=== PATIENT | female | born 1950 | race Hispanic/Latino ===

== ENCOUNTER 2017-10-07 12:35 | Emergency (ER) | payer MEDICARE, OTHER ==
[~2017-10-07] VITALS: Ht 165.1 cm; Wt 62.6 kg
[2017-10-07] MEDS ORDERED: DEXILANT60 MG (15:30)
[2017-10-07] MEDS ORDERED: BUPIVACAINE HCL 0.5% INJ 30 ML VIAL INJ ONE (15:30)
[2017-10-07] MEDS ORDERED: Eliquis PO (15:30)
[2017-10-07] MEDS ORDERED: OCTREOTIDE (15:30)
[2017-10-07] MEDS ORDERED: METOPROLOL SUCC25 MG PO (15:30)
[2017-10-07] MEDS ORDERED: ULTRAM50 MG PO (15:30)
[2017-10-07] MEDS ORDERED: LISINOPRIL10 MG PO (15:30)
[2017-10-07] MEDS ORDERED: NITROFURANTOIN100 MG PO (15:30)
[2017-10-07] MEDS ORDERED: GABAPENTIN400 MG PO (15:30)
== END 2017-10-07 16:10 | disposition home or self-care (01) ==
LOC: FSED 12:35
DX: S61.211A Laceration without foreign body of left index finger without damage to nail, initial encounter (principal); W26.0XXA Contact with knife, initial encounter; Y92.008 Other place in unspecified non-institutional (private) residence as the place of occurrence of the external cause
CPT/HCPCS: 99282

== ENCOUNTER 2019-03-03 16:25 | Emergency (ER) | payer MEDICARE, OTHER ==
[~2019-03-03 16:25] MED LIST: DEXILANT60 MG; Eliquis PO; GABAPENTIN400 MG PO; LISINOPRIL10 MG PO; METOPROLOL SUCC25 MG PO; NITROFURANTOIN100 MG PO; OCTREOTIDE; ULTRAM50 MG PO
--- OUTSIDE RECORDS SUMMARY | 2019-03-03 16:29 | XMS REPORT | Clinical Summary ---
Author Author [facility] Address Unknown Phone Unavailable Care Team Providers Care Chief Deputy Name Role Phone Asked, No Pcp PCP Unavailable Allergies Comments Active Allergy Reactions Severity Noted Date Aspirin Swelling High 04/23/2017 Doxycycline Hyclate Swelling High 04/23/2017 (Bulk) Levofloxacin Swelling High 04/23/2017 Morphine Itching High 04/23/2017 Penicillins Hives High 04/23/2017 Streptomycin Swelling High 04/23/2017 Medications End Date Status Medication Sig Dispensed Refills Start Date Active octreotide (SandoSTATIN Inject 40 mg 0 LAR) 20 mg injection into the shoulder, thigh, or buttocks every 21 days. Active lisinopril Take 20 mg by 0 (PRINIVIL,ZESTRIL) 10 mg mouth every tablet morning. Active gabapentin (NEURONTIN) Take 400 mg 0 400 mg capsule by mouth 3 (three) times a day. Active dexlansoprazole Take 60 mg by 0 (DEXILANT) 60 mg capsule mouth every morning. Active apixaban (ELIQUIS) 5 mg Take 5 mg by 0 tablet mouth 2 (two) times a day. Active diclofenac (VOLTAREN) 1 % Apply 500 g 0 gel topically 4 7 (four) times a day. Apply 1-2 grams to affected area 3-4 times daily. Active traMADol (ULTRAM) 50 mg Take 50 mg by 0 tablet mouth every 6 (six) hours as needed for moderate pain. Active celecoxib (CeleBREX) 200 Take 200 mg 0 MG capsule by mouth as needed for mild pain. Active metoprolol succinate XL TAKE ONE (1) 3 (TOPROL-XL) 25 mg 24 hr TABLET(S) BY 8 tablet MOUTH ONCE A DAY. Active nitrofurantoin, TAKE ONE (1) 3 macrocrystal-monohydrate, CAPSULE(S) BY 8 (MACROBID) 100 MG capsule MOUTH ONCE A DAY. 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 Last Filed Vital Signs Not on file Plan of Treatment Health Maintenance Due Date Last Done Comments BREAST CANCER SCREENING 2000 COLONOSCOPY SCREENING 2000 SHINGLES VACCINES (#1) 2000 65+ PNEUMOCOCCAL VACCINE 2015 (1 of 2 - PCV13) INFLUENZA VACCINE 04/14/2019 Results Not on fileafter 03/02/2018 Insurance Type Payer Benefit Subscriber ID Effective Phone Address Plan / Dates Group Medicare MEDICARE MEDICARE xxxxxxxxxx 2015- [place], PART A AND Present [place] Commercial COMMERCIAL MISC MISC xxxxxxxxxx [id number] COMMERCIAL resent Advance Directives Patient has advance care planning documents on file. For more information, jluis cunha contact: Jeffery Garcia [address] [place] [address]
--- OUTSIDE RECORDS SUMMARY | 2019-03-03 16:29 | XMS REPORT | Clinical Summary ---
Author Author [facility] Address Unknown Phone Unavailable Care Team Providers Care Hr Recruiter Name Role Phone Sharpless PCP Allergies Comments Active Allergy Reactions Severity Noted Date Salicylates 10/08/2016 Doxycycline 10/08/2016 Levofloxacin 10/08/2016 Morphine 10/08/2016 Penicillins Itching, 10/08/2016 Swelling Streptomycin 10/08/2016 Medications End Date Status Medication Sig Dispensed Refills Start Date Active octreotide (SANDOSTATIN Inject 20 mg 0 LAR) 20 mg injection intramuscular ly every 28 days. Active lisinopril Take 20 mg by 0 (PRINIVIL,ZESTRIL) 20 MG mouth daily. tablet Active dexlansoprazole 60 mg Take 60 mg by 0 capsule mouth daily. Active traMADol (ULTRAM) 50 mg Take 50 mg by 0 tablet mouth every 6 (six) hours as needed for Pain. Active gabapentin (NEURONTIN) Take 400 mg 0 400 MG capsule by mouth 3 (three) times daily. Active alendronate (FOSAMAX) 70 Take 70 mg by 0 MG tablet mouth every 7 days Take in the morning with a full glass of water, on an empty stomach, and do not take anything else by mouth or lie down for the next 30 min. . Active apixaban (ELIQUIS) 5 mg Take 5 mg by 0 Tab tablet mouth 2 (two) times daily. Active amiodarone (PACERONE) 200 Take 200 mg 0 MG tablet by mouth daily. Active celecoxib (CELEBREX) 200 Take 200 mg 0 MG capsule by mouth every 12 (twelve) hours as needed for Pain. Active octreotide acetate 100 Inject 0 mcg/mL (1 mL) Syrg intravenously . Active glucosamine-chondroitin Take 1 tablet 0 500-400 mg tablet by mouth 3 (three) times daily. Active lactobacillus rhamnosus, Take 1 0 GG, (CULTURELLE) 10 capsule by billion cell capsule mouth daily. Active calcium carbonate-vitamin Take 1 tablet 0 D2 500 mg(1,250mg) -200 by mouth 2 unit tablet (two) times daily. Active cholecalciferol, vitamin Take by 0 D3, 2,000 unit Cap mouth. Active Problems Problem Noted Date Persistent atrial fibrillation 10/09/2016 Social History Date Tobacco Use Types Packs/Day Years Used Former Smoker Alcohol Use Drinks/Week oz/Week Comments No Sex Assigned at Date Recorded Not on file Industry Job Start Date Occupation Not on file Not on file Not on file Travel End Travel History Travel Start No recent travel history available. Last Filed Vital Signs Not on file Plan of Treatment Not on file Results Not on fileafter 03/02/2018 Insurance Payer Benefit Subscriber ID Type Phone Address Plan / Group MEDICARE MEDICARE A xxxxxxxxxx Medicare B AETNA - MGD CARE AET[employer] TRS xxxxxxxxxx HMO/POS RETIREES Advance Directives For more information, please contact: [facility] [address] [place] [address] Date Inactivated Comments Code Status Date Activated 10/10/2016 1:46 PM Full Code 10/09/2016 5:46 AM This code status was determined by: Patient 10/08/2016 11:16 AM Full Code 10/08/2016 10:33 AM This code status was determined by: Patient
--- OUTSIDE RECORDS SUMMARY | 2019-03-03 16:31 | XMS REPORT | CCD ---
Author Author Auto Generated Organization [facility] Address Unknown Phone Unavailable Care Team Providers Care Search Marketing Coordinator Name Role Phone Kat Munguia RP Urban Vega CP ChartServer, Login CP Unavailable Quynh Correa CP [phone] Allergies, Adverse Reactions, Alerts Substance Reaction Status aspirin ?? Active morphine ?? Active streptomycin ?? Active sulfa drugs ?? Active
--- OUTSIDE RECORDS SUMMARY | 2019-03-03 16:31 | XMS REPORT | Summary of Care ---
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 (Final) - Discharge Disposition: Home or Self Care Attending Physician: Demetrio Walsh MD Referring Physician: Demetrio Walsh MD Vital Signs Most recent to 1 2 oldest [Reference Range]: Height 165.1 cm 165.1 cm (10/01/17 2:56 PM) (10/01/17 2:36 PM) Temperature Oral 97.7 DegF [96.4-99.1 DegF] (10/01/17 2:56 PM) Blood Pressure 119/78 mmHg [90-140/60-90 mmHg] (10/01/17 2:56 PM) Peripheral Pulse 69 bpm Rate [60-100 bpm] (10/01/17 2:56 PM) Weight 61.477 kg 61.5 kg (10/01/17 2:56 PM) (10/01/17 2:36 PM) Body Mass Index 22.55 m2 22.56 m2 (10/01/17 2:56 PM) (10/01/17 2:36 PM) Problem List Condition Effective Dates Status Health Status Informant Acid Resolved reflux(Confirmed) Arthritis(Confirmed) Active Cancer, 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) HTN Active (hypertension)(Confi rmed) Liver Resolved cancer(Confirmed) [address], 2010 with mets to liver and bilateral lungs Allergies, Adverse Reactions, Alerts Substance Reaction Severity Status penicillins lip swelling Active itching sulfa drugs nausea Active doxycycline hives Active streptomycin itching Active lips swell morphine nightmares Active hives aspirin itching Active lips swell Levaquin hives Active Medications SandoSTATIN [place] 40 mg, Route: IM, Drug form: PDR/INJ, ONCALL, Start date: 10/01/17 15:00:00 LOAN OPERATIONS MANAGER, Duration: 8 hr, Stop date: 10/01/17 22:59:00 LOAN OPERATIONS MANAGER Notes: Non-Formulary Drug. (Same As: SandoSTATIN [place]). Refrigerate. Start Date: 10/01/17 Stop Date: 10/01/17 Status: Completed SandoSTATIN [place] 40 mg, Route: IM, Drug form: PDR/INJ, ONCALL, Start date: 09/09/17 10:30:00 LOAN OPERATIONS MANAGER, Duration: 8 hr, Stop date: 09/09/17 18:29:00 LOAN OPERATIONS MANAGER Notes: Non-Formulary Drug. (Same As: SandoSTATIN [place]). Refrigerate. Start Date: 09/09/17 Stop Date: 09/09/17 Status: Completed Results No data available for this section Immunizations Given and Recorded Vaccine Date Status Refusal Reason diphtheria/pertussis, acel/tetanus adult 01/18/17 Given Procedures Procedure Date Related Diagnosis Body Site Status Abdominal hysterectomy Completed Arthroscopic surgical procedure on knee Completed Liver lobectomy1 Completed Lobectomy of lung2 Completed Suspension of bladder Completed 1Rt lobe 2010 2Rt lower 2 lobes 1197 Social History Social History Type Response Smoking Status Never smoker; Ready to change: No; Concerns about tobacco use in household: No; Exposure to Tobacco Smoke None; Cigarette Smoking Last 365 Days No; Reg Smoking Cessation Counseling No entered on: 10/01/17 Assessment and Plan No data available for this section
--- OUTSIDE RECORDS SUMMARY | 2019-03-03 16:31 | XMS REPORT | Summary of Care ---
Author Author [facility] Organization [facility] Address Unknown Phone Unavailable Care Team Providers Care Credit Operations Processor Name Role Phone Demetrio Walsh PCP Encounter [facility] Vaishali_maría elena(FIN) [id number] Date(s): 02/03/19 - 02/03/19 [facility] [address] [place] [address]- Discharge Disposition: Home or Self Care Attending Physician: Kat Munguia MD Admitting Physician: Kat Munguia MD Vital Signs No data available for this section Problem List Condition Effective Dates Status Health Status Informant Acid Resolved reflux(Confirmed) Arthritis(Confirmed) Active Cancer, 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) HTN Active (hypertension)(Confi rmed) Liver Resolved cancer(Confirmed) , 2009 with mets to liver and bilateral lungs Allergies, Adverse Reactions, Alerts Substance Reaction Severity Status penicillins lip swelling Active itching sulfa drugs nausea Active doxycycline hives Active streptomycin itching Active lips swell morphine nightmares Active hives aspirin itching Active lips swell Levaquin hives Active Medications No data available for this section Results No data available for this section [...]
--- OUTSIDE RECORDS SUMMARY | 2019-03-03 16:31 | XMS REPORT | Summary of Care ---
Author Author [facility] Organization [facility] Address Unknown Phone Unavailable Encounter KAREEM Bull([facility]) [id number] Date(s): 01/15/17 - 02/13/17 [facility] [address] [place] [address]- [phone] Discharge Disposition: Home or Self Care Attending Physician: Demetrio Walsh MD Referring Physician: Demetrio Walsh MD Vital Signs Most recent to 1 oldest [Reference Range]: Height 165.1 cm (01/14/17 1:46 PM) Weight 61.3 kg (01/14/17 1:46 PM) Body Mass Index 22.49 m2 (01/14/17 1:46 PM) Problem List Condition Effective Dates Status Health Status Informant Acid Resolved reflux(Confirmed) Arthritis(Confirmed) Active Cancer, 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) HTN Active (hypertension)(Confi rmed) Liver Resolved cancer(Confirmed) , 2009 with mets to liver and bilateral lungs Allergies, Adverse Reactions, Alerts Substance Reaction Severity Status aspirin lips swell Active itching doxycycline hives Active Levaquin hives Active morphine hives Active nightmares penicillins itching Active lip swelling streptomycin lips swell Active itching sulfa drugs nausea Active Medications SandoSTATIN [place] 40 mg, Route: IM, Drug form: PDR/INJ, ONCALL, Start date: 01/15/17 9:30:00 CDT, Duration: 8 hr, Stop date: 01/15/17 17:29:00 CDT Notes: Non-Formulary Drug. (Same As: SandoSTATIN [place]). Refrigerate. Start Date: 01/15/17 Stop Date: 01/15/17 Status: Completed SandoSTATIN [place] 40 mg, Route: IM, Drug form: PDR/INJ, ONCALL, Start date: 02/11/17 10:00:00 CDT, Duration: 8 hr, Stop date: 02/11/17 17:59:00 CDT Notes: Non-Formulary Drug. (Same As: SandoSTATIN [place]). Refrigerate. Start Date: 02/11/17 Stop Date: 02/11/17 Status: Completed SandoSTATIN [place] 40 mg, Route: IM, Drug form: PDR/INJ, ONCALL, Start date: 02/05/17 10:00:00 CDT, Duration: 8 hr, Stop date: 02/05/17 17:59:00 CDT Notes: Non-Formulary Drug. (Same As: SandoSTATIN [place]). Refrigerate. Start Date: 02/05/17 Stop Date: 02/11/17 Status: Completed Results No data available for this section Immunizations Given and Recorded Vaccine Date Status Refusal Reason diphtheria/pertussis, acel/tetanus adult 01/18/17 Given Procedures Procedure Date Related Diagnosis Body Site Abdominal hysterectomy Arthroscopic surgical procedure on knee Liver lobectomy1 Lobectomy of lung2 Suspension of bladder 1Rt lobe 2010 2Rt lower 2 lobes 1197 Social History Social History Type Response Smoking Status Never smoker; Ready to change: No; Concerns about tobacco use in household: No; Exposure to Tobacco Smoke None; Cigarette Smoking Last 365 Days No; Reg Smoking Cessation Counseling No Assessment and Plan No data available for this section
--- OUTSIDE RECORDS SUMMARY | 2019-03-03 16:31 | XMS REPORT | Summary of Care ---
Author Organization Unknown Address Unknown Phone Unavailable Encounter [facility]) [id number] Date(s): 01/07/15 - 01/09/15 [facility] [address] [place] [address]- Discharge Disposition: Home Physician Attending: Td Ascencio MD Physician Admitting: Td Ascencio MD Vital Signs 1 2 3 Most recent to oldest [Reference Range]: 165.1 cm (01/07/15 8:17 PM) 165.1 cm (01/07/15 10:36 AM) Height 97.8 DegF (01/09/15 4:00 AM) 98.2 DegF (01/09/15 12:00 AM) 98.3 DegF (01/08/15 8:00 PM) Temperature Oral [96.4-99.1 DegF] 115/72 mmHg (01/09/15 4:00 AM) 112/72 mmHg (01/09/15 12:00 AM) 103/64 mmHg (01/08/15 8:00 PM) Blood Pressure [90-140/60-90 mmHg] 18 BRMIN (01/09/15 4:00 AM) 18 BRMIN (01/09/15 12:00 AM) 18 BRMIN (01/08/15 8:00 PM) Respiratory Rate [14-20 BRMIN] 60 bpm (01/09/15 4:00 AM) 63 bpm (01/09/15 12:00 AM) 73 bpm (01/08/15 8:00 PM) Peripheral Pulse Rate [60-100 bpm] 61.364 kg (01/07/15 8:17 PM) 61.364 kg (01/07/15 10:36 AM) Weight 22.51 m2 (01/07/15 8:17 PM) 22.51 m2 (01/07/15 10:36 AM) Body Mass Index Problem List Condition Effective Dates Status Health Status Informant Arthritis(Confirmed) Resolved Cancer, 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 HTN Resolved (hypertension)(Confi rmed) Liver Resolved cancer(Confirmed) [address]86[address], 2010 with mets to liver and bilateral lungs Allergies, Adverse Reactions, Alerts Substance Reaction Severity Status aspirin Active Levaquin Active morphine Active penicillins Active streptomycin Active sulfa drugs Active Medications atropine 0.5 mg, 5 mL, Route: IVP, Drug form: INJ, PRN, PRN Bradycardia, Start date: 12/14 02/26 21:11:00, Duration: 30 day, Stop date: 02/06/15 21:10:00 Start Date: 01/07/15 Stop Date: 01/09/15 Status: Discontinued cefTRIAXone + Sodium Chloride 0.9% IV 100 mL 1 gm, Route: IVPB, ONCE, Dosing Weight 61.364, kg, Priority: STAT, Start date: 0 01/07/15 12:15:00, Stop date: 01/07/15 12:15:00 Notes: (Same As: Rocephin).Use with 100ml NS mini-bag PLUS and infuse over 30 mi n MEDICATION WASTE Product Size: 1000 mgProduct Wasted: ___ mg Start Date: 01/07/15 Stop Date: 01/07/15 Status: Completed cefTRIAXone + Sodium Chloride 0.9% IV 100 mL 1 gm, Route: IVPB, Q24H, Dosing Weight 61.364, kg, Priority: STAT, Start date: 0 01/07/15 14:18:00, Duration: 30 day, Stop date: 02/05/15 13:00:00 Notes: (Same As: Rocephin).Use with 100ml NS mini-bag PLUS and infuse over 30 mi n MEDICATION WASTE Product Size: 1000 mgProduct Wasted: ___ mg Start Date: 01/07/15 Stop Date: 01/09/15 Status: Discontinued Dexilant 60 mg, Route: PO, Drug form: DRC, Daily, Dosing Weight 61.364, kg, Start date: 0 01/08/15 9:00:00, Duration: 30 day, Stop date: 02/06/15 9:00:00 Start Date: 01/08/15 Stop Date: 01/07/15 Status: Deleted Dexilant 60 mg oral delayed release capsule 60 mg=1 cap, PO, Daily, 0 Refill(s) Start Date: 01/07/15 Status: Ordered Dilaudid 0.5 mg, 0.5 mL, Route: IVP, Drug form: INJ, Q6H, Dosing Weight 61.364, kg, PRN H eadache 1-5, Priority: STAT, Start date: 01/07/15 14:18:00, Duration: 30 day, St op date: 02/06/15 14:17:00 Start Date: 01/07/15 Stop Date: 01/09/15 Status: Discontinued Dilaudid 0.5 mg, 0.5 mL, Route: IVP, Drug form: INJ, ONCE, Dosing Weight 61.364, kg, Prio rity: STAT, Start date: 01/07/15 11:43:00, Stop date: 01/07/15 11:43:00 Start Date: 01/07/15 Stop Date: 01/07/15 Status: Completed doxycycline hyclate 100 mg oral tablet 100 mg=1 tab, PO, Q12H, X 14 day, # 28 tab, 0 Refill(s) Start Date: 01/09/15 Stop Date: 01/23/15 Status: Ordered gabapentin 400 mg oral capsule 400 mg=1 cap, PO, TID, 0 Refill(s) Start Date: 01/07/15 Status: Ordered gabapentin 400 mg oral capsule 400 mg, 1 cap, Route: PO, Drug form: CAP, TID, Dosing Weight 61.364, kg, Start d ate: 01/08/15 9:00:00, Duration: 30 day, Stop date: 02/06/15 17:00:00 Notes: (Same as: Neurontin) Start Date: 01/08/15 Stop Date: 01/09/15 Status: Discontinued lisinopril 20 mg, 1 tab, Route: PO, Drug form: TAB, Daily, Dosing Weight 61.364, kg, Start date: 01/08/15 9:00:00, Duration: 30 day, Stop date: 02/06/15 9:00:00 Notes: (Same as: Prinivil, Zestril) Start Date: 01/08/15 Stop Date: 01/09/15 Status: Discontinued lisinopril 20 mg oral tablet 20 mg=1 tab, PO, Daily, # 30 tab, 0 Refill(s) Start Date: 01/07/15 Status: Ordered nitroglycerin 0.4 mg sublingual tablet 0.4 mg, 1 tab, Route: SL, Drug form: TAB, Q5Min, PRN Chest Pain, Start date: 21:11:00, Duration: 30 day, Stop date: 02/06/15 21:10:00 Notes: (Same as:Nitroquick, Nitrostat)"Do Not Crush" Sublingual tablet Start Date: 01/07/15 Stop Date: 01/09/15 Status: Discontinued ondansetron 4 mg, 2 mL, Route: IVP, Drug form: INJ, Q8H, Dosing Weight 61.364, kg, PRN Nause a & Vomiting, Start date: 01/07/15 14:18:00, Duration: 30 day, Stop date: 02/06/15 14:17:00 Notes: (Same as: Kenzie) MEDICATION WASTE Product Size: 4 mgProduct Was mary: ___ mg Start Date: 01/07/15 Stop Date: 01/09/15 Status: Discontinued Protonix 40 mg, 1 tab, Route: PO, Drug form: ECTAB, Before Dinner, Start date: 01/08/15 1 6:30:00, Duration: 30 day, Stop date: 02/06/15 16:30:00 Notes: Tablet should not be chewed or crushed.(Same as: Protonix) Start Date: 01/08/15 Stop Date: 01/09/15 Status: Discontinued Saline Flush 0.9% 10 ml, Route: IVP, Drug Form: INJ, Dosing Weight 61.364, kg, PRN, PRN Line Flush , Start date: 01/07/15 14:18:00, Duration: 30 day, Stop date: 02/06/15 14:17:00 Notes: Same as: BD Posiflush Sterile Start Date: 01/07/15 Stop Date: 01/09/15 Status: Discontinued SandoSTATIN LAR [place] 30 mg intramuscular injection See Instructions, IM q 21 days, 0 Refill(s) Special Instructions: IM q 21 days Start Date: 01/07/15 Status: Ordered Solu-MEDROL 40 mg, 1 mL, Route: IVP, Drug form: INJ, Q12H, Dosing Weight 61.364, kg, Priorit y: NOW, Start date: 01/07/15 19:45:00, Duration: 30 day, Stop date: 02/06/15 9:0 0:00 Notes: (Same as:Solu-MEDROL, A-Methapred) Start Date: 01/07/15 Stop Date: 01/09/15 Status: Discontinued tramadol 50 mg oral tablet 50 mg, 1 tab, Route: PO, Drug form: TAB, Q6H, Dosing Weight 61.364, kg, PRN Pain 1-3/Temp > 100.4 F, Start date: 01/07/15 19:35:00, Duration: 3 day, Stop date: 01/10/15 19:34:00 Notes: Not to exceed 400mg/day. (Same As: Ultram) Start Date: 01/07/15 Stop Date: 01/09/15 Status: Discontinued tramadol 50 mg oral tablet 50 mg=1 tab, PO, Q6H, PRN Pain, # 40 tab, 0 Refill(s) Start Date: 01/07/15 Stop Date: 01/17/15 Status: Ordered vancomycin 1 gm, 200 mL, Route: IVPB, Drug form: INJ, ONCE, Dosing Weight 61.364, kg, Prior ity: STAT, Start date: 01/07/15 13:50:00, Stop date: 01/07/15 13:50:00 Start Date: 01/07/15 Stop Date: 01/07/15 Status: Completed vancomycin 750 mg, 150 mL, Route: IVPB, Drug form: INJ, [id number], Dosing Weight 61.364, kg, Start date: 01/07/15 20:00:00, Duration: 30 day, Stop date: 02/06/15 4:00:00 Notes: Same as: VancocinInfusion rate< 1000 mg: infuse over 1 [id number] - 1500 mg: infuse over 1.5 [id number] - 2000 mg: infuse over 2 hours> 2001 mg: infuse over 2.5 hours Start Date: 01/07/15 Stop Date: 4/28/15 Status: Discontinued Results ELECTROLYTES Most recent to 1 2 oldest [Reference Range]: Sodium Lvl [135-145 138 mEq/L 138 mEq/L mEq/L] (01/08/15 6:12 AM) (01/07/15 12:56 PM) Potassium Lvl 4.1 mEq/L 3.9 mEq/L [3.5-5.1 mEq/L] (01/08/15 6:12 AM) (01/07/15 12:56 PM) Chloride Lvl [95-109 105 mEq/L 104 mEq/L mEq/L] (01/08/15 6:12 AM) (01/07/15 12:56 PM) CO2 [24-32 mEq/L] 26 mEq/L 27 mEq/L (01/08/15 6:12 AM) (01/07/15 12:56 PM) AGAP [10.0-20.0 11.1 mEq/L 10.9 mEq/L mEq/L] (01/08/15 6:12 AM) (01/07/15 12:56 PM) CHEM PANEL Most recent to 1 2 oldest [Reference Range]: Creatinine Lvl 0.7 mg/dL 0.7 mg/dL [0.5-1.4 mg/dL] (01/08/15 6:12 AM) (01/07/15 12:56 PM) eGFR 92 mL/min/1.73m2 1 92 mL/min/1.73m2 2 *NA* *NA* (01/08/15 6:12 AM) (01/07/15 12:56 PM) BUN [7-22 mg/dL] 15 mg/dL 14 mg/dL (01/08/15 6:12 AM) (01/07/15 12:56 PM) B/C Ratio [6-25] 21 20 (01/08/15 6:12 AM) (01/07/15 12:56 PM) Glucose Lvl [70-99 135 mg/dL 3 95 mg/dL 4 mg/dL] *HI* (01/07/15 12:56 PM) (01/08/15 6:12 AM) Total Protein 6.7 g/dL 7.0 g/dL [6.4-8.4 g/dL] (01/08/15 6:12 AM) (01/07/15 12:56 PM) Albumin Lvl [3.5-5.0 3.0 g/dL 3.4 g/dL g/dL] *LOW* *LOW* (01/08/15 6:12 AM) (01/07/15 12:56 PM) Globulin [2.0-4.0 3.7 g/dL 3.6 g/dL g/dL] (01/08/15 6:12 AM) (01/07/15 12:56 PM) A/G Ratio [0.7-1.6] 0.8 0.9 (01/08/15 6:12 AM) (01/07/15 12:56 PM) Calcium Lvl 8.8 mg/dL 8.3 mg/dL [8.5-10.5 mg/dL] (01/08/15 6:12 AM) *LOW* (01/07/15 12:56 PM) ALT [0-65 unit/L] 33 unit/L 30 unit/L (01/08/15 6:12 AM) (01/07/15 12:56 PM) AST [0-37 unit/L] 21 unit/L 23 unit/L (01/08/15 6:12 AM) (01/07/15 12:56 PM) Alk Phos [39-136 139 unit/L 139 unit/L unit/L] *HI* *HI* (01/08/15 6:12 AM) (01/07/15 12:56 PM) Bili Total [0.2-1.3 0.5 mg/dL 0.8 mg/dL mg/dL] (01/08/15 6:12 AM) (01/07/15 12:56 PM) Lactic Acid Lvl 1.0 mMol/L [0.5-2.2 mMol/L] (01/07/15 12:56 PM) 1Result Comment: The eGFR is calculated using the CKD-EPI formula. In most young, healthy individuals the eGFR will be >90 mL/min/1.73m2. The eGFR declines with age. An eGFR of 60-89 may be normal in some populations, particularly the elderly, for whom the CKD-EPI formula has not been extensively validated. Use of the eGFR is not recommended in the following populations: Individuals with unstable creatinine concentrations, including patients and those with serious co-morbid conditions. Patients with extremes in muscle mass or diet. The data above are obtained from the National Kidney Disease Education Program ( NKDEP) which additionally recommends that when the eGFR is used in patients with extremes of body mass index for purposes of drug dosing, the eGFR should be mul tiplied by the estimated BMI. 2Result Comment: The eGFR is calculated using the CKD-EPI formula. In most young, healthy individuals the eGFR will be >90 mL/min/1.73m2. The eGFR declines with age. An eGFR of 60-89 may be normal in some populations, particularly the elderly, for whom the CKD-EPI formula has not been extensively validated. Use of the eGFR is not recommended in the following populations: Individuals with unstable creatinine concentrations, including patients and those with serious co-morbid conditions. Patients with extremes in muscle mass or diet. The data above are obtained from the National Kidney Disease Education Program ( NKDEP) which additionally recommends that when the eGFR is used in patients with extremes of body mass index for purposes of drug dosing, the eGFR should be mul tiplied by the estimated BMI. 3Interpretive Data: Adult reference range values reflect the clinical guidelines of the [place] [employer]. 4Interpretive Data: Adult reference range values reflect the clinical guidelines of the [place] [employer]. BODY FLUIDS Most recent to 1 2 oldest [Reference Range]: Color BF [Colorless] Yellow (01/07/15 12:56 PM) Clarity BF [Clear] Moderate Cloudy *ABN* (01/07/15 12:56 PM) Supernat BF Yellow [Colorless] *ABN* (01/07/15 12:56 PM) RBC BF 5800 /mm3 5 *NA* (01/07/15 12:56 PM) [place] [address] /mm3 6 *NA* (01/07/15 12:56 PM) Segs BF 95 % 7 *NA* (01/07/15 12:56 PM) Lymph BF 2 % *NA* (01/07/15 12:56 PM) Eos BF 0 % *NA* (01/07/15 12:56 PM) Macrophage BF 5 % *NA* (01/07/15 12:56 PM) Crystal BF Negative [Negative] (01/07/15 12:24 PM) Crystal BF Type Synovial (01/07/15 12:24 PM) CellCnt BF Type Synovial (01/07/15 12:56 PM) 5Interpretive Data: No established reference ranges. 6Interpretive Data: No established reference ranges. 7Interpretive Data: No established reference ranges. IMMUNOLOGY Most recent to 1 2 oldest [Reference Range]: Ceres-Hep C Ab Negative [Negative] *NA* (01/07/15 12:56 PM) HEMATOLOGY Most recent to 1 2 oldest [Reference Range]: WBC [3.7-10.4 K/CMM] 5.1 K/CMM 6.9 K/CMM (01/08/15 6:12 AM) (01/07/15 12:56 PM) RBC [4.20-5.40 4.31 M/CMM 4.21 M/CMM M/CMM] (01/08/15 6:12 AM) (01/07/15 12:56 PM) Hgb [12.0-16.0 g/dL] 12.2 g/dL 11.9 g/dL (01/08/15 6:12 AM) *LOW* (01/07/15 12:56 PM) Hct [36.0-48.0 %] 35.8 % 34.9 % *LOW* *LOW* (01/08/15 6:12 AM) (01/07/15 12:56 PM) MCV [80.0-98.0 fL] 83.2 fL 82.8 fL (01/08/15 6:12 AM) (01/07/15 12:56 PM) MCH [27.0-31.0 pg] 28.4 pg 28.2 pg (01/08/15 6:12 AM) (01/07/15 12:56 PM) MCHC [32.0-36.0 34.1 g/dL 34.0 g/dL g/dL] (01/08/15 6:12 AM) (01/07/15 12:56 PM) RDW [11.5-14.5 %] 15.7 % 16.0 % *HI* *HI* (01/08/15 6:12 AM) (01/07/15 12:56 PM) Platelet [133-450 228 K/CMM 216 K/CMM K/CMM] (01/08/15 6:12 AM) (01/07/15 12:56 PM) MPV [7.4-10.4 fL] 10.2 fL 9.5 fL (01/08/15 6:12 AM) (01/07/15 12:56 PM) Segs [45.0-75.0 %] 85.2 % 75.2 % *HI* *HI* (01/08/15 6:12 AM) (01/07/15 12:56 PM) Lymphocytes 11.6 % 14.2 % [20.0-40.0 %] *LOW* *LOW* (01/08/15 6:12 AM) (01/07/15 12:56 PM) Monocytes [2.0-12.0 3.0 % 10.2 % %] (01/08/15 6:12 AM) (01/07/15 12:56 PM) Basophils [0.0-1.0 0.2 % 0.4 % %] (01/08/15 6:12 AM) (01/07/15 12:56 PM) Segs-Bands # 4.3 K/CMM 5.2 K/CMM [1.5-8.1 K/CMM] (01/08/15 6:12 AM) (01/07/15 12:56 PM) Lymphocytes # 0.6 K/CMM 1.0 K/CMM [1.0-5.5 K/CMM] *LOW* (01/07/15 12:56 PM) (01/08/15 6:12 AM) Monocytes # [0.0-0.8 0.2 K/CMM 0.7 K/CMM K/CMM] (01/08/15 6:12 AM) (01/07/15 12:56 PM) Sed Rate [0-20 40 mm/hr mm/hr] *HI* (01/07/15 12:56 PM) Immunizations No data available for this section Procedures Procedure Date Related Diagnosis Body Site Abdominal hysterectomy Arthroscopic surgical procedure on knee Liver lobectomy1 Lobectomy of lung2 1Rt lobe 2009 2Rt lower 2 lobes 1197 Social History Social History Type Response Smoking Status Never smoker; Ready to change: No; Concerns about tobacco use in household: No; Exposure to Tobacco Smoke None; Cigarette Smoking Last 365 Days No; Reg Smoking Cessation Counseling No Assessment and Plan No data available for this section
--- OUTSIDE RECORDS SUMMARY | 2019-03-03 16:31 | XMS REPORT | Summary of Care ---
Author Author [facility] Organization [facility] Address Unknown Phone Unavailable Encounter [facility] [id number] Date(s): 04/21/17 - 05/20/17 [facility] [address] [place] [address]- Discharge Disposition: Home or Self Care Attending Physician: Demetrio Walsh MD Referring Physician: Demetrio Walsh MD Vital Signs Most recent to 1 oldest [Reference Range]: Height 165.1 cm (04/17/17 4:33 PM) Weight 61.3 kg (04/17/17 4:33 PM) Body Mass Index 22.49 m2 (04/17/17 4:33 PM) Problem List Condition Effective Dates Status [...] IM, Drug form: PDR/INJ, ONCALL, Start date: 05/07/17 9:00:00 CDT, Duration: 8 hr, Stop date: 05/07/17 16:59:00 CDT Notes: Non-Formulary Drug. (Same As: SandoSTATIN LAR Dep[place]). Refrigerate. Start Date: 05/07/17 Stop Date: 05/19/17 Status: Completed SandoSTATIN LAR [place] 40 mg, Route: IM, Drug form: PDR/INJ, ONCALL, Start date: 05/15/17 11:00:00 CDT, Duration: 8 hr, Stop date: 05/15/17 18:59:00 CDT Notes: Non-Formulary Drug. (Same As: SandoSTATIN LAR [place]). Refrigerate. Start Date: 05/15/17 Stop Date: 05/19/17 Status: Completed SandoSTATIN LAR [place] 40 mg, Route: IM, Drug form: PDR/INJ, ONCALL, Start date: 04/20/17 11:30:00 CDT, Duration: 8 hr, Stop date: 04/20/17 19:29:00 CDT Notes: Non-Formulary Drug. (Same As: SandoSTATIN LAR Depot). Refrigerate. Start Date: 04/20/17 Stop Date: 04/21/17 Status: Completed Results No data available for [...]
--- OUTSIDE RECORDS SUMMARY | 2019-03-03 16:31 | XMS REPORT | Summary of Care ---
Author Author [facility] Organization [facility] Address Unknown Phone Unavailable Encounter K[facility]) [id number] Date(s): 03/05/17 - 04/03/17 [facility] [address] [place] [address]- Discharge Disposition: Home or Self Care Attending Physician: Demetrio Walsh MD Referring Physician: Demetrio Walsh MD Vital Signs Most recent to 1 2 oldest [Reference Range]: Height 165.1 cm (03/04/17 3:27 PM) Temperature Oral 98.3 DegF 98.1 DegF [96.4-99.1 DegF] (03/26/17 2:40 PM) (03/05/17 3:41 PM) Blood Pressure 130/85 mmHg 139/81 mmHg [90-140/60-90 mmHg] (03/26/17 2:40 PM) (03/05/17 3:41 PM) Respiratory Rate 18 BRMIN 18 BRMIN [14-20 BRMIN] (03/26/17 2:40 PM) (03/05/17 3:41 PM) Peripheral Pulse 62 bpm 55 bpm Rate [60-100 bpm] (03/26/17 2:40 PM) *LOW* (03/05/17 3:41 PM) Weight 61.3 kg (03/04/17 3:27 PM) Body Mass Index 22.49 m2 (03/04/17 3:27 PM) Problem List Condition Effective Dates Status [...] IM, Drug form: PDR/INJ, ONCALL, Start date: 03/05/17 11:00:00 CDT, Duration: 8 hr, Stop date: 03/05/17 18:59:00 CDT Notes: Non-Formulary Drug. (Same As: SandoSTATIN LAR Depot). Refrigerate. Start Date: 03/05/17 Stop Date: 03/05/17 Status: Completed SandoSTATIN LAR [place]ot 40 mg, Route: IM, Drug form: PDR/INJ, ONCALL, Start date: 03/26/17 11:00:00 CDT, Duration: 8 hr, Stop date: 03/26/17 18:59:00 CDT Notes: Non-Formulary Drug. (Same As: SandoSTATIN LAR Depot). Refrigerate. Start Date: 03/26/17 Stop Date: 03/26/17 Status: Completed Results No data available for this section Immunizations Given and Recorded Vaccine Date Status Refusal Reason diphtheria/pertussis, acel/tetanus adult 01/18/17 Given Procedures Procedure Date Related Diagnosis Body Site Abdominal hysterectomy Arthroscopic surgical procedure on knee Liver lobectomy1 Lobectomy of lung2 Suspension of bladder 1Rt lobe 2009 2Rt lower 2 lobes 1197 Social History Social History Type Response Smoking Status Never smoker; Ready to change: No; Concerns about tobacco use in household: No; Exposure to Tobacco Smoke None; Cigarette Smoking Last 365 Days No; Reg Smoking Cessation Counseling No Assessment and Plan No data available for this section
--- OUTSIDE RECORDS SUMMARY | 2019-03-03 16:31 | XMS REPORT | Summary of Care ---
Author Author [facility] Organization [facility] Address Unknown Phone Unavailable Encounter KARE[facility] Bull([facility]) [id number] Date(s): 01/18/17 - 01/18/17 [facility] [address] [place] [address]- [phone] Discharge Diagnosis: Pain in right foot Discharge Disposition: Home or Self Care Attending Physician: Jonathan Barth DO Vital Signs Most recent to 1 2 oldest [Reference Range]: Height 165.1 cm (01/18/17 3:28 PM) Temperature Oral 98.9 DegF [96.4-99.1 DegF] (01/18/17 3:28 PM) Blood Pressure 149/94 mmHg 159/93 mmHg [90-140/60-90 mmHg] *HI* *HI* (01/18/17 5:34 PM) (01/18/17 3:28 PM) Respiratory Rate 18 BRMIN 15 BRMIN [14-20 BRMIN] (01/18/17 5:34 PM) (01/18/17 3:28 PM) Peripheral Pulse 64 bpm 78 bpm Rate [60-100 bpm] (01/18/17 5:34 PM) (01/18/17 3:28 PM) Weight 61.818 kg (01/18/17 3:28 PM) Body Mass Index 22.68 m2 (01/18/17 3:28 PM) Problem List Condition Effective Dates Status Health Status Informant Acid Resolved reflux(Confirmed) Arthritis(Confirmed) Active Cancer, 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) HTN Active (hypertension)(Confi rmed) Liver Resolved cancer(Confirmed) [address]3286, 2009 with mets to liver and bilateral lungs Allergies, Adverse Reactions, Alerts Substance Reaction Severity Status aspirin lips swell Active itching doxycycline hives Active Levaquin hives Active morphine hives Active nightmares penicillins itching Active lip swelling streptomycin lips swell Active itching sulfa drugs nausea Active Medications Keflex 500 mg oral capsule 500 mg=1 cap, PO, QID, X 10 day, # 40 cap, 0 Refill(s) Start Date: 01/18/17 Stop Date: 01/28/17 Status: Ordered Mosby 10/325 oral tablet 1 tab, PO, Q4H, PRN for pain, X 4 day, # 24 tab, 0 Refill(s) Start Date: 01/18/17 Stop Date: 01/18/17 Status: Discontinued Tylenol with Codeine #3 oral tablet 1 - 2 tab, PO, Q4H, PRN Pain, X 3 day, # 20 tab, 0 Refill(s) Start Date: 01/18/17 Stop Date: 01/21/17 Status: Ordered Results ELECTROLYTES Most recent to 1 oldest [Reference Range]: Sodium Lvl [135-145 142 mEq/L mEq/L] (01/18/17 4:48 PM) Potassium Lvl 3.7 mEq/L [3.5-5.1 mEq/L] (01/18/17 4:48 PM) Chloride Lvl [95-109 107 mEq/L mEq/L] (01/18/17 4:48 PM) CO2 [24-32 mEq/L] 29 mEq/L (01/18/17 4:48 PM) AGAP [10.0-20.0 9.7 mEq/L mEq/L] *LOW* (01/18/17 4:48 PM) CHEM PANEL Most recent to 1 oldest [Reference Range]: Creatinine Lvl 0.91 mg/dL [0.50-1.40 mg/dL] (01/18/17 4:48 PM) eGFR 66 mL/min/1.73m2 1 *NA* (01/18/17 4:48 PM) BUN [7-22 mg/dL] 15 mg/dL (01/18/17 4:48 PM) Glucose Lvl [70-99 74 mg/dL mg/dL] (01/18/17 4:48 PM) Calcium Lvl 8.5 mg/dL [8.5-10.5 mg/dL] (01/18/17 4:48 PM) 1Result Comment: The eGFR is calculated [...] be mul tiplied by the estimated BMI. HEMATOLOGY Most recent to 1 oldest [Reference Range]: WBC [3.7-10.4 K/CMM] 7.3 K/CMM (01/18/17 4:48 PM) RBC [4.20-5.40 4.40 M/CMM M/CMM] (01/18/17 4:48 PM) Hgb [12.0-16.0 g/dL] 12.2 g/dL (01/18/17 4:48 PM) Hct [36.0-48.0 %] 36.4 % (01/18/17 4:48 PM) MCV [80.0-98.0 fL] 82.6 fL (01/18/17 4:48 PM) MCH [27.0-31.0 pg] 27.6 pg (01/18/17 4:48 PM) MCHC [32.0-36.0 33.5 g/dL g/dL] (01/18/17 4:48 PM) RDW [11.5-14.5 %] 16.4 % *HI* (01/18/17 4:48 PM) Platelet [133-450 274 K/CMM K/CMM] (01/18/17 4:48 PM) MPV [7.4-10.4 fL] 9.0 fL (01/18/17 4:48 PM) Segs [45.0-75.0 %] 64.4 % (01/18/17 4:48 PM) Lymphocytes 21.4 % [20.0-40.0 %] (01/18/17 4:48 PM) Monocytes [2.0-12.0 11.3 % %] (01/18/17 4:48 PM) Eosinophils [0.0-4.0 2.3 % %] (01/18/17 4:48 PM) Basophils [0.0-1.0 0.6 % %] (01/18/17 4:48 PM) Segs-Bands # 4.7 K/CMM [1.5-8.1 K/CMM] (01/18/17 4:48 PM) Lymphocytes # 1.6 K/CMM [1.0-5.5 K/CMM] (01/18/17 4:48 PM) Monocytes # [0.0-0.8 0.8 K/CMM K/CMM] (01/18/17 4:48 PM) Eosinophils # 0.2 K/CMM [0.0-0.5 K/CMM] (01/18/17 4:48 PM) Immunizations Given and Recorded Vaccine Date Status [...]
--- OUTSIDE RECORDS SUMMARY | 2019-03-03 16:31 | XMS REPORT | Summary of Care ---
Author Author [facility] Organization [facility] Address Unknown Phone Unavailable Encounter KAREEM Bull([facility]) [id number] Date(s): 07/22/17 - 08/20/17 [facility] [address] [place] [address]- Discharge Disposition: Home or Self Care Attending Physician: Demetrio Walsh MD Referring Physician: Demetrio Walsh MD Vital Signs Most recent to 1 2 oldest [Reference Range]: Height 165.1 cm (07/22/17 2:30 PM) Temperature Oral 98.3 DegF 98.2 DegF [96.4-99.1 DegF] (08/14/17 3:54 PM) (07/22/17 3:46 PM) Blood Pressure 146/90 mmHg 127/87 mmHg [90-140/60-90 mmHg] *HI* (07/22/17 3:46 PM) (08/14/17 3:54 PM) Respiratory Rate 18 BRMIN 18 BRMIN [14-20 BRMIN] (08/14/17 3:54 PM) (07/22/17 3:46 PM) Peripheral Pulse 64 bpm 73 bpm Rate [60-100 bpm] (08/14/17 3:54 PM) (07/22/17 3:46 PM) Weight 61.773 kg (07/22/17 2:30 PM) Body Mass Index 22.66 m2 (07/22/17 2:30 PM) Problem List Condition Effective Dates Status Health Status Informant Acid Resolved reflux(Confirmed) Arthritis(Confirmed) Active Cancer, 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) HTN Active (hypertension)(Confi rmed) Liver Resolved cancer(Confirmed) [address]9566, 2010 with mets to liver and bilateral lungs Allergies, Adverse Reactions, Alerts Substance Reaction Severity Status penicillins lip swelling Active itching sulfa drugs nausea Active doxycycline hives Active streptomycin itching Active lips swell morphine nightmares Active hives aspirin itching Active lips swell Levaquin hives Active Medications SandoSTATIN [place] 40 mg, Route: IM, Drug form: PDR/INJ, ONCALL, Start date: 08/14/17 12:00:00 MEDICAL TECHNICIAN, Duration: 8 hr, Stop date: 08/14/17 19:59:00 MEDICAL TECHNICIAN Notes: Non-Formulary Drug. (Same As: SandoSTATIN [place]). Refrigerate. Start Date: 08/14/17 Stop Date: 08/14/17 Status: Completed SandoSTATIN [place] 40 mg, Route: IM, Drug form: PDR/INJ, ONCALL, Start date: 07/22/17 15:00:00 MEDICAL TECHNICIAN, Duration: 8 hr, Stop date: 07/22/17 22:59:00 MEDICAL TECHNICIAN Notes: Non-Formulary Drug. (Same As: SandoSTATIN [place]). Refrigerate. Start Date: 07/22/17 Stop Date: 07/22/17 Status: Completed Results No data available for [...]
--- OUTSIDE RECORDS SUMMARY | 2019-03-03 16:31 | XMS REPORT | Summary of Care ---
Author Author [facility] Organization [facility] Address Unknown Phone Unavailable Encounter KARE[facility] Bull([facility]) [id number] Date(s): 06/11/17 - 07/10/17 [facility] [address] [place] [address]- Discharge Disposition: Home or Self Care Attending Physician: Demetrio Walsh MD Referring Physician: Demetrio Walsh MD Vital Signs Most recent to 1 2 oldest [Reference Range]: Height 165.1 cm (06/10/17 5:25 PM) Temperature Oral 98.0 DegF 98.1 DegF [96.4-99.1 DegF] (07/02/17 2:08 PM) (06/11/17 1:00 PM) Blood Pressure 118/81 mmHg 131/80 mmHg [90-140/60-90 mmHg] (07/02/17 2:08 PM) (06/11/17 1:00 PM) Respiratory Rate 18 BRMIN 18 BRMIN [14-20 BRMIN] (07/02/17 2:08 PM) (06/11/17 1:00 PM) Peripheral Pulse 70 bpm 61 bpm Rate [60-100 bpm] (07/02/17 2:08 PM) (06/11/17 1:00 PM) Weight 61.545 kg (06/10/17 5:25 PM) Body Mass Index 22.58 m2 (06/10/17 5:25 PM) Problem List Condition Effective Dates Status [...] IM, Drug form: PDR/INJ, ONCALL, Start date: 07/02/17 13:00:00 CDT, Duration: 8 hr, Stop date: 07/02/17 20:59:00 CDT Notes: Non-Formulary Drug. (Same As: SandoSTATIN [place]). Refrigerate. Start Date: 07/02/17 Stop Date: 07/02/17 Status: Completed SandoSTATIN [place] 40 mg, Route: IM, Drug form: PDR/INJ, ONCALL, Start date: 06/11/17 11:00:00 CDT, Duration: 8 hr, Stop date: 06/11/17 18:59:00 CDT Notes: Non-Formulary Drug. (Same As: SandoSTATIN [place]). Refrigerate. Start Date: 06/11/17 Stop Date: 06/11/17 Status: Completed Results No data available for [...]
--- OUTSIDE RECORDS SUMMARY | 2019-03-03 16:31 | XMS REPORT | Summary of Care ---
Author Organization Unknown Address Unknown Phone Unavailable Encounter [facility] [id number] Date(s): 02/13/15 - 03/14/15 [facility] [address] [place] [address]- [phone] Discharge Disposition: Home Physician Attending: Demetrio Walsh MD Vital Signs No data available for this section Problem List Condition Effective Dates Status Health Status Informant Arthritis(Confirmed) Resolved Cancer, 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 HTN Resolved (hypertension)(Confi rmed) Liver Resolved cancer(Confirmed) [address], 2009 with mets to liver and bilateral lungs Allergies, Adverse Reactions, Alerts Substance Reaction Severity Status aspirin Active Levaquin Active morphine Active penicillins Active streptomycin Active sulfa drugs Active Medications SandoSTATIN [place] 30 mg, Route: IM, Drug form: INJ, ONCE, Start date: 02/13/15 9:00:00, Stop date: 02/13/15 9:00:00 Notes: Non-Formulary Drug. (Same As: SandoSTATIN [place]). Refrigerate. Start Date: 02/13/15 Stop Date: 02/13/15 Status: Ordered SandoSTATIN [place] 40 mg, Route: IM, Drug form: PDR/INJ, ONCALL, Start date: 03/14/15 9:00:00, Dura tion: 8 hr, Stop date: 03/14/15 16:59:00 Notes: Non-Formulary Drug. (Same As: SandoSTATIN [place]). Refrigerate. Start Date: 03/14/15 Stop Date: 03/14/15 Status: Ordered Results No data available for this section Immunizations No data available for this section Procedures Procedure Date Related Diagnosis Body Site Abdominal hysterectomy Arthroscopic surgical procedure on knee Liver lobectomy1 Lobectomy of lung2 1Rt lobe 2010 2Rt lower 2 lobes 1197 Social History Social History Type Response Smoking Status Never smoker; Exposure to Tobacco Smoke None; Cigarette Smoking Last 365 Days No; Reg Smoking Cessation Counseling No Assessment and Plan No data available for this section
--- OUTSIDE RECORDS SUMMARY | 2019-03-03 16:31 | XMS REPORT | Continuity of Care Document ---
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 01/14/2018 [facility] TIA STATIN LAR 40MG / J2353 / [id number] Active 08/20/2017 [facility] TIA STATIN LAR 40 MG / J2353 / CPT=96 Active 07/06/2017 [facility] SANDASTATIN LAR 40MG///J2353, 40116, DX: Active 04/17/2017 [facility] SANDOSTATIN LAR 40MG, J2353, 95076, DX: Active 03/02/2017 [facility] Discharge Diagnosis: Pain in right foot 01/18/2017 01/21/2017 [facility] FOOT PAIN Active 01/18/2017 [facility] SANDASTATIN LAR 40 MG J2353, CPT-37978, Active 12/26/2016 [facility] APPT 12/04/16, SANDOSTATIN LAR 40 MG, J23 Active 10/24/2016 [facility] SANDASTATIN LAR 40 MG (J2353), CPT-96510 Active 07/01/2016 [facility] THERAPY IV Active 05/14/2016 [facility] SANDOSTATIN LAR 40 MG (J2353), CPT-96989 Active 05/14/2016 [facility] CHEST PAIN Active 05/13/2016 [facility] AFIB RVR WITH ABERANCY Active 05/13/2016 [facility] RAPID HEART BEAT Active 04/13/2016 [facility] SANDOSTATIN LAR J2353, CPT-03733, C7A.09 Active 03/31/2016 [facility] INJECTION Active 03/31/2016 [facility] APPT 03/10/16, SANDASTATIN LAR 40 MG, CPT Active 02/20/2016 [facility] SANDOSTATIN LAR 40 MG, CPT-53556, J 2353 Active 01/15/2016 [facility] APPOINTMENT 12/12/2015 FOR SANDASTATIN L Active 11/23/2015 [facility] CPT 44177, 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, MAL Active 10/29/2015 [facility] LUNG CANCER Active 09/12/2015 [facility] LUNG CA Active 06/22/2015 [facility] LUNG/LIVER CA Active 05/10/2015 [facility] PALPITATIONS Active 05/10/2015 [facility] LIVER CA/LUNG CA Active 03/29/2015 [facility] ARTHRITIS NOS Active 01/07/2015 [facility] ARM PAIN Active 01/07/2015 [facility] 719.44/V82.2 Active 08/11/2011 [facility] Arthritis Active Problem 02/06/2019 [facility] Cancer, metastatic to lung<sup>1</sup> Resolved Problem 02/06/20192009 with mets to liver and bilateral lungs [facility] HTN (<span [id number]</span>) Active Problem 02/06/2019 [facility] Liver cancer Resolved Problem 02/06/2019 [facility] Carcinoid syndrome Active Problem 02/06/2019 [facility] Carcinoid tumor of lung Resolved Problem 02/06/2019 [facility] Acid reflux Resolved Problem 02/06/2019 [facility] 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 [facility] Secondary malignant neoplasm of unspecified lung 01/14/2018 [facility] LUNG AND LIVER CANCER Active [facility] RHEUMATOID ARTHRITIS Active [facility] UNK Active [facility] K21.9 Active [facility] PAROXYSMAL ATRIAL FIBRILLATION Active [facility] SECONDARY MALIG NEOPLASM OF LIVER AND IN Active [facility] CARCINOID SYNDROME Active [facility] 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 (Same As: SandoSTATIN [place]). Refrigerate. Inactive 10/01/2017 [facility] SandoSTATIN [place] 40 mg, Route: IM, Drug form: PDR/INJ, ONCALL, Start date: 09/09/17 10:30:00 SEAM RUBBER, Duration: 8 hr, Stop date: 09/09/17 18:29:00 CSTNotes: Non-Formulary Drug. (Same As: SandoSTATIN [place]). Refrigerate. Inactive 09/09/2017 [facility] SandoSTATIN [place] 40 mg, Route: IM, Drug form: PDR/INJ, ONCALL, Start date: 08/14/17 12:00:00 SEAM RUBBER, Duration: 8 hr, Stop date: 08/14/17 19:59:00 CSTNotes: Non-Formulary Drug. (Same As: SandoSTATIN [place]). Refrigerate. Inactive 08/14/2017 [facility] SandoSTATIN [place] 40 mg, Route: IM, Drug form: PDR/INJ, ONCALL, Start date: 07/22/17 15:00:00 SEAM RUBBER, Duration: 8 hr, Stop date: 07/22/17 22:59:00 CSTNotes: Non-Formulary Drug. (Same As: SandoSTATIN [place]). Refrigerate. Inactive 07/22/2017 [facility] SandoSTATIN [place] 40 mg, Route: IM, Drug form: PDR/INJ, ONCALL, Start date: 07/02/17 13:00:00 CDT, Duration: 8 hr, Stop date: 07/02/17 20:59:00 CDTNotes: Non-Formulary Drug. (Same As: SandoSTATIN [place]). Refrigerate. Inactive 07/02/2017 [facility] SandoSTATIN [place] 40 mg, Route: IM, Drug form: PDR/INJ, ONCALL, Start date: 06/11/17 11:00:00 CDT, Duration: 8 hr, Stop date: 06/11/17 18:59:00 CDTNotes: Non-Formulary Drug. (Same As: SandoSTATIN [place]). Refrigerate. Inactive 06/11/2017 [facility] SandoSTATIN [place] 40 mg, Route: IM, Drug form: PDR/INJ, ONCALL, Start date: 05/15/17 11:00:00 CDT, Duration: 8 hr, Stop date: 05/15/17 18:59:00 CDTNotes: Non-Formulary Drug. (Same As: SandoSTATIN [place]). Refrigerate. No Longer Active 05/15/2017 [facility] SandoSTATIN [place] 40 mg, Route: IM, Drug form: PDR/INJ, ONCALL, Start date: 05/07/17 9:00:00 CDT, Duration: 8 hr, Stop date: 05/07/17 16:59:00 CDTNotes: Non-Formulary Drug. (Same As: SandoSTATIN [place]). Refrigerate. No Longer Active 05/07/2017 [facility] SandoSTATIN [place] 40 mg, Route: IM, Drug form: PDR/INJ, ONCALL, Start date: 04/20/17 11:30:00 CDT, Duration: 8 hr, Stop date: 04/20/17 19:29:00 CDTNotes: Non-Formulary Drug. (Same As: SandoSTATIN [place]). Refrigerate. No Longer Active 04/20/2017 [facility] SandoSTATIN [place] 40 mg, Route: IM, Drug form: PDR/INJ, ONCALL, Start date: 03/26/17 11:00:00 CDT, Duration: 8 hr, Stop date: 03/26/17 18:59:00 CDTNotes: Non-Formulary Drug. (Same As: SandoSTATIN [place]). Refrigerate. Inactive 03/26/2017 [facility] SandoSTATIN [place] 40 mg, Route: IM, Drug form: PDR/INJ, ONCALL, Start date: 03/05/17 11:00:00 CDT, Duration: 8 hr, Stop date: 03/05/17 18:59:00 CDTNotes: Non-Formulary Drug. (Same As: SandoSTATIN [place]). Refrigerate. Inactive 03/05/2017 [facility] SandoSTATIN [place] 40 mg, Route: IM, Drug form: PDR/INJ, ONCALL, Start date: 02/11/17 10:00:00 CDT, Duration: 8 hr, Stop date: 02/11/17 17:59:00 CDTNotes: Non-Formulary Drug. (Same As: SandoSTATIN [place]). Refrigerate. Inactive 02/11/2017 [facility] SandoSTATIN [place] 40 mg, Route: IM, Drug form: PDR/INJ, ONCALL, Start date: 02/05/17 10:00:00 CDT, Duration: 8 hr, Stop date: 02/05/17 17:59:00 CDTNotes: Non-Formulary Drug. (Same As: SandoSTATIN [place]). Refrigerate. No Longer Active 02/05/2017 [facility] Acetaminophen 300 MG / Codeine Phosphate 30 MG Oral Tablet [Tylenol with Codeine #3] 1 - 2 tab, PO, Q4H, PRN Pain, X 3 day, # 20 tab, 0 Refill(s) Active 01/18/2017 [facility] Acetaminophen 325 MG / Hydrocodone Bitartrate 10 MG Oral Tablet [[place] 10/325] 1 tab, PO, Q4H, PRN for pain, X 4 day, # 24 tab, 0 Refill(s) Inactive 01/18/2017 [facility] Cephalexin 500 MG Oral Capsule [Keflex] 500 mg=1 cap, PO, QID, X 10 day, # 40 cap, 0 Refill(s) Active 01/18/2017 [facility] SandoSTATIN [place] 40 mg, Route: IM, Drug form: PDR/INJ, ONCALL, Start date: 01/15/17 9:30:00 CDT, Duration: 8 hr, Stop date: 01/15/17 17:29:00 CDTNotes: Non-Formulary Drug. (Same As: SandoSTATIN [place]). Refrigerate. Inactive 01/15/2017 [facility] SandoSTATIN [place] 40 mg, Route: IM, Drug form: PDR/INJ, ONCALL, Start date: 12/25/16 11:00:00 CDT, Duration: 8 hr, Stop date: 12/25/16 18:59:00 CDTNotes: Non-Formulary Drug. (Same As: SandoSTATIN [place]). Refrigerate. Inactive 12/25/2016 [facility] SandoSTATIN [place] 40 mg, Route: IM, Drug form: PDR/INJ, ONCALL, Start date: 12/04/16 10:30:00 CDT, Duration: 8 hr, Stop date: 12/04/16 18:29:00 CDTNotes: Non-Formulary Drug. (Same As: SandoSTATIN [place]). Refrigerate. Inactive 12/04/2016 [facility] SandoSTATIN [place] 40 mg, Route: IM, Drug form: PDR/INJ, ONCALL, Start date: 11/13/16 9:30:00 SEAM RUBBER, Duration: 8 hr, Stop date: 11/13/16 17:29:00 CSTNotes: Non-Formulary Drug. (Same As: SandoSTATIN [place]). Refrigerate. Inactive 11/13/2016 [facility] SandoSTATIN [place] 40 mg, Route: IM, Drug form: PDR/INJ, ONCALL, Start date: 10/24/16 14:00:00 SEAM RUBBER, Duration: 8 hr, Stop date: 10/24/16 21:59:00 CSTNotes: Non-Formulary Drug. (Same As: SandoSTATIN [place]). Refrigerate. Inactive 10/24/2016 [facility] SandoSTATIN [place] 20 mg, Route: IM, Drug form: PDR/INJ, ONCALL, Start date: 10/02/16 11:00:00 SEAM RUBBER, Duration: 8 hr, Stop date: 10/02/16 18:59:00 CSTNotes: Non-Formulary Drug. (Same As: SandoSTATIN [place]). Refrigerate. Inactive 10/02/2016 [facility] SandoSTATIN [place] 20 mg, Route: IM, Drug form: PDR/INJ, ONCALL, Start date: 09/11/16 9:00:00 SEAM RUBBER, Duration: 8 hr, Stop date: 09/11/16 16:59:00 CSTNotes: Non-Formulary Drug. (Same As: SandoSTATIN [place]). Refrigerate. Inactive 09/11/2016 [facility] SandoSTATIN [place] 20 mg, Route: IM, Drug form: PDR/INJ, ONCALL, Start date: 08/21/16 11:00:00 SEAM RUBBER, Duration: 8 hr, Stop date: 08/21/16 18:59:00 CSTNotes: Non-Formulary Drug. (Same As: SandoSTATIN [place]). Refrigerate. No Longer Active 08/21/2016 [facility] SandoSTATIN [place] 20 mg, Route: IM, Drug form: PDR/INJ, ONCALL, Start date: 08/20/16 10:00:00 SEAM RUBBER, Duration: 8 hr, Stop date: 08/20/16 17:59:00 CSTNotes: Non-Formulary Drug. (Same As: SandoSTATIN [place]). Refrigerate. Inactive 08/20/2016 [facility] SandoSTATIN [place] 10 mg, Route: IM, Drug form: PDR/INJ, ONCALL, Start date: 07/31/16 11:00:00 SEAM RUBBER, Duration: 24 hr, Stop date: 08/01/16 10:59:00 CSTNotes: Same As: (SandoSTATIN [place]) Refrigerated Item Non-Formulary Item Inactive 07/31/2016 [facility] SandoSTATIN [place] 20 mg, Route: IM, Drug form: PDR/INJ, ONCALL, Start date: 07/31/16 9:00:00 SEAM RUBBER, Duration: 8 hr, Stop date: 07/31/16 16:59:00 CSTNotes: Non-Formulary Drug. (Same As: SandoSTATIN [place]). Refrigerate. Inactive 07/31/2016 [facility] SandoSTATIN [place] 10 mg, Route: IM, Drug form: PDR/INJ, ONCALL, Start date: 07/10/16 10:30:00 CDT, Duration: 24 hr, Stop date: 07/11/16 10:29:00 CDTNotes: Same As: (SandoSTATIN [place]) Refrigerated Item Non-Formulary Item Inactive 07/10/2016 [facility] SandoSTATIN [place] 10 mg, Route: IM, Drug form: PDR/INJ, ONCALL, Start date: 06/19/16 8:30:00 CDT, Duration: 24 hr, Stop date: 06/20/16 8:29:00 CDTNotes: Same As: (SandoSTATIN [place]) Refrigerated Item Non-Formulary Item Inactive 06/19/2016 [facility] SandoSTATIN [place] 10 mg, Route: IM, Drug form: PDR/INJ, ONCALL, Start date: 05/29/16 11:00:00 CDT, Duration: 24 hr, Stop date: 05/30/16 10:59:00 CDTNotes: Same As: (SandoSTATIN [place]) Refrigerated Item Non-Formulary Item No Longer Active 05/29/2016 [facility] AMIODarone 200 mg oral tablet 200 mg, PO, BID, # 60 tab, 3 Refill(s) Active 05/16/2016 [facility] lisinopril 10 mg oral tablet 10 mg=1 tab, PO, Daily, # 30 tab, 3 Refill(s) Active 05/16/2016 [facility] Amiodarone 200 mg, 1 tab, Route: PO, Drug form: TAB, BID, Dosing Weight 61.364, kg, Priority: NOW, Start date: 05/16/16 14:30:00 CDT, Duration: 30 day, Stop date: 06/15/16 9:00:00 CDTNotes: (Same as: Cordarone) Inactive 05/16/2016 [facility] metoprolol extended release 25 mg, 1 tab, Route: PO, Drug form: ERTAB, Daily, Start date: 05/16/16 9:00:00 CDT, Duration: 30 day, Stop date: 06/14/16 9:00:00 CDTNotes: (Same as: Toprol XL) Do Not Crush Inactive 05/16/2016 [facility] Lisinopril 10 mg, 1 tab, Route: PO, Drug form: TAB, Daily, Dosing Weight 61.818, kg, Start date: 05/16/16 9:00:00 CDT, Duration: 30 day, Stop date: 06/14/16 9:00:00 CDTNotes: (Same as: Prinivil, Zestril) Inactive 05/16/2016 [facility] Digoxin 0.25 mg, 1 mL, Route: IVP, Drug form: INJ, ONCE, Dosing Weight 61.364, kg, Priority: NOW, Start date: 05/15/16 15:10:00 CDT, Stop date: 05/15/16 15:10:00 CDTNotes: (Same as: Lanoxin) Inactive 05/15/2016 [facility] digoxin 125 mcg (0.125 mg) oral tablet 0.125 mg, 1 tab, Route: PO, Drug form: TAB, Daily, Dosing Weight 61.364, kg, Priority: NOW, Start date: 05/15/16 15:10:00 CDT, Duration: 30 day, Stop date: 06/14/16 9:00:00 CDTNotes: Take on an Empty Stomach (Same as: Lanoxin) No Longer Active 05/15/2016 [facility] AMIODarone INJ 900 mg + D5W 500 ml INJ 482 mL 900 mg, 18 mL, Rate: 1 mg/min for 6 hours, then reduce to 0.5 mg/min, Dosing Weight 61.364, kg, Route: IV, Total Volume: 500, Start Date: 05/15/16 10:39:00 CDT, Duration: 30 day, Stop date: 06/14/16 10:38:00 CDT, Replace Every: 24 hrNotes: Central administration only for concentration > 2 mg/ml. Use Glass Bottle or Non PVC Bag "Use 0.22 micron in-line filter" MEDICATION WASTE Product Size: 900 mg Product Wasted: ___ mg No Longer Active 05/15/2016 [facility] AMIODarone INJ 900 mg + D5W 500 ml INJ 482 mL 900 mg, 18 mL, Rate: 0.5 mg/min continuously, Dosing Weight 61.364, kg, Route: IV, Total Volume: 500, Start Date: 05/15/16 1:29:00 CDT, Duration: 30 day, Stop date: 06/14/16 2:09:00 CDT, Replace Every: 24 hrNotes: Central administration only for concentration > 2 mg/ml. Use Glass Bottle or Non PVC Bag "Use 0.22 micron in- line filter" MEDICATION WASTE Product Size: 900 mg Product Wasted: ___ mg Inactive 05/15/2016 [facility] nitroglycerin 0.4 mg sublingual tablet 0.4 mg, 1 tab, Route: SL, Drug form: TAB, Q5Min, PRN Chest Pain, Start date: 05/14/16 15:34:00 CDT, Duration: 30 day, Stop date: 06/13/16 15:33:00 CDTNotes: (Same as:Nitroquick, Nitrostat) "Do Not Crush" Sublingual tablet No Longer Active 05/14/2016 [facility] atropine 0.5 mg, 5 mL, Route: IVP, Drug form: INJ, PRN, PRN Bradycardia, Start date: 05/14/16 15:33:00 CDT, Duration: 30 day, Stop date: 06/13/16 15:32:00 CDT No Longer Active 05/14/2016 [facility] Amiodarone 200 mg, 1 tab, Route: PO, Drug form: TAB, Q12H, Dosing Weight 61.364, kg, Priority: NOW, Start date: 05/14/16 12:18:00 CDT, Duration: 30 day, Stop date: 06/13/16 9:00:00 CDTNotes: (Same as: Cordarone) No Longer Active 05/14/2016 [facility] Lisinopril 20 mg, 1 tab, Route: PO, Drug form: TAB, Daily, Dosing Weight 61.818, kg, Start date: 05/14/16 9:00:00 CDT, Duration: 30 day, Stop date: 06/12/16 9:00:00 CDTNotes: (Same as: Prinivil, Zestril) No Longer Active 05/14/2016 [facility] Dexilant 60 mg, Route: PO, Drug form: DRC, Daily, Dosing Weight 61.818, kg, Start date: 05/14/16 9:00:00 CDT, Duration: 30 day, Stop date: 06/12/16 9:00:00 CDT No Longer Active 05/14/2016 [facility] apixaban 5 mg, 1 tab, Route: PO, Drug form: TAB, Q12H, Dosing Weight 61.818, kg, Start date: 05/13/16 21:00:00 CDT, Duration: 30 day, Stop date: 06/12/16 9:00:00 CDTNotes: Same as: Eliquis No Longer Active 05/14/2016 [facility] Protonix 40 mg, 1 tab, Route: PO, Drug form: ECTAB, Before Dinner, Start date: 05/13/16 16:30:00 CDT, Duration: 30 day, Stop date: 06/11/16 16:30:00 CDTNotes: Tablet should not be chewed or crushed. (Same as: Protonix) No Longer Active 05/13/2016 [facility] Morphine 2 mg, Route: IVP, Q4H, Dosing Weight 61.818, kg, PRN Pain Score 7-10, Start date: 05/13/16 16:19:00 CDT, Duration: 30 day, Stop date: 06/12/16 16:18:00 CDT Inactive 05/13/2016 [facility] Acetaminophen 650 mg, 2 tab, Route: PO, Drug form: TAB, Q4H, Dosing Weight 61.818, kg, PRN Pain 1-3/Temp > 100.4 F, Start date: 05/13/16 16:19:00 CDT, Duration: 30 day, Stop date: 06/12/16 16:18:00 CDTNotes: Do not exceed 4 gm/day. (Same as: Tylenol) No Longer Active 05/13/2016 [facility] Ondansetron 4 mg, 2 mL, Route: IVP, Drug form: INJ, Q6H, Dosing Weight 61.818, kg, PRN Nausea & Vomiting, Start date: 05/13/16 16:19:00 CDT, Duration: 30 day, Stop date: 06/12/16 16:18:00 CDTNotes: (Same as: Zofran) MEDICATION WASTE Product Size: 4 mg Product Wasted: ___ mg No Longer Active 05/13/2016 [facility] Sodium Chloride 0.154 MEQ/ML Injectable Solution 1,000 mL, Rate: 75 ml/hr, Infuse over: 13.3 hr, Route: IV, Dosing Weight 61.818 kg, Total Volume: 1,000, Start date: 05/13/16 16:19:00 CDT, Duration: 30 day, Stop date: 06/12/16 16:18:00 CDT No Longer Active 05/13/2016 [facility] Saline Flush 0.9% 10 ml, Route: IVP, Drug Form: INJ, Dosing Weight 61.818, kg, PRN, PRN Line Flush, Start date: 05/13/16 16:19:00 CDT, Duration: 30 day, Stop date: 06/12/16 16:18:00 CDTNotes: (Same as: BD Posiflush) No Longer Active 05/13/2016 [facility] gabapentin 400 MG Oral Capsule 400 mg, 1 cap, Route: PO, Drug form: CAP, TID, Dosing Weight 61.818, kg, Start date: 05/13/16 13:00:00 CDT, Duration: 30 day, Stop date: 06/12/16 9:00:00 CDTNotes: (Same as: Neurontin) No Longer Active 05/13/2016 [facility] Alprazolam 0.25 MG Oral Tablet [Xanax] 0.25 mg, 1 tab, Route: PO, Drug form: TAB, TID, Dosing Weight 61.818, kg, PRN Anxiety, Start date: 05/13/16 13:00:00 CDT, Duration: 30 day, Stop date: 06/12/16 12:59:00 CDTNotes: With food or milk (Same as: Xanax) No Longer Active 05/13/2016 [facility] tramadol hydrochloride 50 MG Oral Tablet 50 mg, 1 tab, Route: PO, Drug form: TAB, Q6H, Dosing Weight 61.818, kg, PRN Pain Score 4-6, Start date: 05/13/16 13:00:00 CDT, Duration: 30 day, Stop date: 06/12/16 12:59:00 CDTNotes: Not to exceed 400mg/day. (Same As: Ultram) No Longer Active 05/13/2016 [facility] AMIODarone INJ 900 mg + D5W 500 ml INJ 482 mL 900 mg, 18 mL, Rate: 1 mg/min for 6 hours, then reduce to 0.5 mg/min, Dosing Weight 61.818, kg, Route: IV, Total Volume: 500, Start Date: 05/13/16 12:25:00 CDT, Duration: 30 day, Stop date: 06/12/16 12:24:00 CDT, Replace Every: 24 hrNotes: Central administration only for concentration > 2 mg/ml. Use Glass Bottle or Non PVC Bag "Use 0.22 micron in-line filter" MEDICATION WASTE Product Size: 900 mg Product Wasted: ___ mg No Longer Active 05/13/2016 [facility] Amiodarone 150 mg, Route: IVP, ONCE, Dosing Weight 61.818, kg, Priority: STAT, Start date: 05/13/16 12:20:00 CDT, Stop date: 05/13/16 12:20:00 CDT Inactive 05/13/2016 [facility] Saline Flush 0.9% 10 mL, Route: IVP, Drug Form: INJ, Dosing Weight 61.818, kg, PRN, PRN Line Flush, Start date: 05/13/16 12:17:00 CDT, Duration: 30 day, Stop date: 06/12/16 12:16:00 CDTNotes: (Same as: BD Posiflush) No Longer Active 05/13/2016 [facility] SandoSTATIN [place] 10 mg, Route: IM, Drug form: PDR/INJ, ONCALL, Start date: 05/08/16 9:00:00 CDT, Duration: 24 hr, Stop date: 05/09/16 8:59:00 CDTNotes: Same As: (SandoSTATIN [place]) Refrigerated Item Non-Formulary Item Inactive 05/08/2016 [facility] SandoSTATIN [place] 10 mg, Route: IM, Drug form: PDR/INJ, ONCALL, Start date: 04/17/16 10:00:00 CDT, Duration: 24 hr, Stop date: 04/18/16 9:59:00 CDTNotes: Same As: (SandoSTATIN [place]) Refrigerated Item Non-Formulary Item No Longer Active 04/17/2016 [facility] propafenone 150 mg oral tablet 150 mg=1 tab, PO, Q12H, # 60 tab, 0 Refill(s), Pharmacy: [facility] Active 04/15/2016 [facility] Lisinopril 20 mg, 1 tab, Route: PO, Drug form: TAB, Daily, Dosing Weight 61.364, kg, Start date: 04/15/16 9:00:00 CDT, Duration: 30 day, Stop date: 05/14/16 9:00:00 CDTNotes: (Same as: Prinivil, Zestril) Inactive 04/15/2016 [facility] Dexilant 60 mg, Route: PO, Drug form: DRC, Daily, Dosing Weight 61.364, kg, Start date: 04/15/16 9:00:00 CDT, Duration: 30 day, Stop date: 05/14/16 9:00:00 CDT No Longer Active 04/15/2016 [facility] apixaban 5 mg oral tablet 5 mg=1 tab, PO, Q12H, # 60 tab, 0 Refill(s), Pharmacy: [facility] Active 04/15/2016 [facility] gabapentin 400 MG Oral Capsule 400 mg, 1 cap, Route: PO, Drug form: CAP, TID, Dosing Weight 61.364, kg, Start date: 04/14/16 17:00:00 CDT, Duration: 30 day, Stop date: 05/14/16 13:00:00 CDTNotes: (Same as: Neurontin) No Longer Active 04/14/2016 [facility] Protonix 40 mg, 1 tab, Route: PO, Drug form: ECTAB, Before Dinner, Start date: 04/14/16 16:30:00 CDT, Duration: 30 day, Stop date: 05/13/16 16:30:00 CDTNotes: Tablet should not be chewed or crushed. (Same as: Protonix) No Longer Active 04/14/2016 [facility] tramadol hydrochloride 50 MG Oral Tablet 50 mg, 1 tab, Route: PO, Drug form: TAB, Q6H, Dosing Weight 61.364, kg, PRN Pain Score 4-6, Start date: 04/14/16 16:03:00 CDT, Duration: 30 day, Stop date: 05/14/16 16:02:00 CDTNotes: Not to exceed 400mg/day. (Same As: Ultram) No Longer Active 04/14/2016 [facility] Sumatriptan 50 mg, 2 tab, Route: PO, Drug form: TAB, Daily, Dosing Weight 61.364, kg, PRN Other -See Comment, Start date: 04/14/16 16:03:00 CDT, Duration: 30 day, Stop date: 05/14/16 16:02:00 CDT, MIGRAINENotes: (Same As: Imitrex) No Longer Active 04/14/2016 [facility] Alprazolam 0.25 MG Oral Tablet [Xanax] 0.25 mg, 1 tab, Route: PO, Drug form: TAB, TID, Dosing Weight 61.364, kg, PRN Anxiety, Start date: 04/14/16 16:02:00 CDT, Duration: 30 day, Stop date: 05/14/16 16:01:00 CDTNotes: With food or milk (Same as: Xanax) No Longer Active 04/14/2016 [facility] Eliquis 5 mg, 1 tab, Route: PO, Drug form: TAB, Q12H, Dosing Weight 61.364, kg, Priority: NOW, Start date: 04/14/16 9:17:00 CDT, Duration: 30 day, Stop date: 05/14/16 9:00:00 CDTNotes: Same as: Eliquis No Longer Active 04/14/2016 [facility] Propafenone 150 mg, 1 tab, Route: PO, Drug form: TAB, Q12H, Dosing Weight 61.364, kg, Priority: NOW, Start date: 04/14/16 9:16:00 CDT, Duration: 30 day, Stop date: 05/14/16 9:00:00 CDTNotes: (Same as: Rythmol) No Longer Active 04/14/2016 [facility] Acetaminophen 325 mg, 1 tab, Route: PO, Drug form: TAB, Q4H, Dosing Weight 61.364, kg, PRN Pain Score 4-6, Start date: 04/13/16 23:40:00 CDT, Duration: 30 day, Stop date: 05/13/16 23:39:00 CDTNotes: Do not exceed 4 gm/day. (Same as: Tylenol) No Longer Active 04/14/2016 [facility] Morphine 2 mg, Route: IVP, Q4H, Dosing Weight 61.364, kg, PRN Pain Score 7-10, Start date: 04/13/16 23:40:00 CDT, Duration: 30 day, Stop date: 05/13/16 23:39:00 CDT No Longer Active 04/14/2016 [facility] Saline Flush 0.9% 10 mL, Route: IVP, Drug Form: INJ, Dosing Weight 61.3, kg, PRN, PRN Line Flush, Start date: 04/13/16 18:43:00 CDT, Duration: 30 day, Stop date: 05/13/16 18:42:00 CDTNotes: (Same as: BD [place]) Inactive 04/13/2016 [facility] SandoSTATIN [place] 30 mg, Route: IM, Drug form: INJ, ONCALL, Start date: 03/27/16 11:00:00 CDT, Duration: 24 hr, Stop date: 03/28/16 10:59:00 CDTNotes: Non-Formulary Drug. (Same As: SandoSTATIN [place]). Refrigerate. No Longer Active 03/27/2016 [facility] SandoSTATIN [place] 30 mg, Route: IM, Drug form: INJ, ONCALL, Start date: 03/06/16 10:00:00 CDT, Duration: 24 hr, Stop date: 03/07/16 9:59:00 CDTNotes: Non-Formulary Drug. (Same As: SandoSTATIN [place]). Refrigerate. No Longer Active 03/06/2016 [facility] SandoSTATIN [place] 30 mg, Route: IM, Drug form: INJ, ONCALL, Start date: 02/14/16 11:00:00 CDT, Duration: 24 hr, Stop date: 02/15/16 10:59:00 CDTNotes: Non-Formulary Drug. (Same As: SandoSTATIN [place]). Refrigerate. No Longer Active 02/14/2016 [facility] SandoSTATIN [place] 10 mg, Route: IM, Drug form: PDR/INJ, ONCALL, Start date: 01/24/16 11:30:00 CDT, Duration: 24 hr, Stop date: 01/25/16 11:29:00 CDTNotes: Same As: (SandoSTATIN [place]) Refrigerated Item Non-Formulary Item Inactive 01/24/2016 [facility] SandoSTATIN [place] 30 mg, Route: IM, Drug form: INJ, ONCALL, Start date: 01/02/16 9:00:00 CDT, Duration: 24 hr, Stop date: 01/03/16 8:59:00 CDTNotes: Non-Formulary Drug. (Same As: SandoSTATIN [place]). Refrigerate. No Longer Active 01/02/2016 [facility] SandoSTATIN [place] 10 mg, Route: IM, Drug form: PDR/INJ, ONCALL, Start date: 12/12/15 9:30:00, Duration: 24 hr, Stop date: 12/13/15 9:29:00Notes: Same As: (SandoSTATIN [place]) Refrigerated Item Non- Formulary Item Inactive 12/12/2015 [facility] SandoSTATIN [place] 10 mg, Route: IM, Drug form: PDR/INJ, ONCALL, Start date: 11/22/15 9:00:00, Duration: 24 hr, Stop date: 11/23/15 8:59:00Notes: Same As: (SandoSTATIN [place]) Refrigerated Item Non- Formulary Item No Longer Active 11/22/2015 [facility] SandoSTATIN [place] 30 mg, Route: IM, Drug form: INJ, ONCALL, Start date: 10/30/15 11:00:00, Duration: 24 hr, Stop date: 10/31/15 10:59:00Notes: Non-Formulary Drug. (Same As: SandoSTATIN [place]). Refrigerate. No Longer Active 10/30/2015 [facility] SandoSTATIN [place] 30 mg, Route: IM, Drug form: INJ, ONCALL, Start date: 10/08/15 9:00:00, Duration: 12 hr, Stop date: 10/08/15 20:59:00Notes: Non-Formulary Drug. (Same As: SandoSTATIN [place]). Refrigerate. Inactive 10/08/2015 [facility] SandoSTATIN [place] 10 mg, Route: IM, Drug form: PDR/INJ, ONCALL, Start date: 09/18/15 9:00:00, Duration: 12 hr, Stop date: 09/18/15 20:59:00Notes: Same As: (SandoSTATIN [place]) Refrigerated Item Non- Formulary Item Inactive 09/18/2015 [facility] SandoSTATIN [place] 30 mg, Route: IM, Drug form: INJ, ONCALL, Start date: 08/27/15 13:00:00, Duration: 12 hr, Stop date: 08/28/15 0:59:00Notes: Non-Formulary Drug. (Same As: SandoSTATIN [place]). Refrigerate. Inactive 08/27/2015 [facility] SandoSTATIN [place] 40 mg, Route: IM, Drug form: PDR/INJ, ONCALL, Start date: 08/27/15 9:00:00, Duration: 12 hr, Stop date: 08/27/15 20:59:00Notes: Non-Formulary Drug. (Same As: SandoSTATIN [place]). Refrigerate. Inactive 08/27/2015 [facility] SandoSTATIN [place] 40 mg, Route: IM, Drug form: PDR/INJ, ONCALL, Start date: 08/24/15 9:00:00, Duration: 12 hr, Stop date: 08/24/15 20:59:00Notes: Non-Formulary Drug. No Longer Active 08/24/2015 [facility] SandoSTATIN [place] 40 mg, Route: IM, Drug form: PDR/INJ, ONCALL, Start date: 08/06/15 12:00:00, Duration: 1 day, Stop date: 08/07/15 11:59:00Notes: Non-Formulary Drug. Inactive 08/06/2015 [facility] SandoSTATIN [place] 40 mg, Route: IM, Drug form: PDR/INJ, ONCALL, Start date: 07/16/15 9:00:00, Duration: 12 hr, Stop date: 07/16/15 20:59:00Notes: Non-Formulary Drug. Inactive 07/16/2015 [facility] SandoSTATIN [place] 40 mg, Route: IM, Drug form: PDR/INJ, ONCALL, Start date: 06/25/15 9:00:00, Duration: 8 hr, Stop date: 06/25/15 16:59:00Notes: Non-Formulary Drug. (Same As: SandoSTATIN [place]). Refrigerate. Inactive 06/25/2015 [facility] SandoSTATIN [place] 40 mg, Route: IM, Drug form: PDR/INJ, ONCALL, Start date: 06/04/15 9:00:00, Duration: 8 hr, Stop date: 06/04/15 16:59:00Notes: Non-Formulary Drug. (Same As: SandoSTATIN [place]). Refrigerate. Inactive 06/04/2015 [facility] SandoSTATIN [place] 40 mg, Route: IM, Drug form: PDR/INJ, ONCALL, Start date: 05/14/15 9:30:00, Duration: 1 doses or timesNotes: Non- Formulary Drug. (Same As: SandoSTATIN [place]). Refrigerate. Inactive 05/14/2015 [facility] Lisinopril 20 mg, 1 tab, Route: PO, Drug form: TAB, Daily, Dosing Weight 61.364, kg, Start date: 05/12/15 9:00:00, Duration: 30 day, Stop date: 06/10/15 9:00:00Notes: (Same as: Prinivil, Zestril) No Longer Active 05/12/2015 [facility] Dexilant 60 mg, Route: PO, Drug form: DRC, Daily, Dosing Weight 61.364, kg, Start date: 05/12/15 9:00:00, Duration: 30 day, Stop date: 06/10/15 9:00:00 No Longer Active 05/12/2015 [facility] Protonix 40 mg, 1 tab, Route: PO, Drug form: ECTAB, Before Dinner, Dosing Weight 61.364, kg, Start date: 05/11/15 16:30:00, Duration: 30 day, Stop date: 06/09/15 16:30:00Notes: Tablet should not be chewed or crushed. (Same as: Protonix) Inactive 05/11/2015 [facility] gabapentin 400 MG Oral Capsule 400 mg, 1 cap, Route: PO, Drug form: CAP, TID, Dosing Weight 61.364, kg, Start date: 05/11/15 13:00:00, Duration: 30 day, Stop date: 06/10/15 9:00:00Notes: (Same as: Neurontin) Inactive 05/11/2015 [facility] octreotide 30 mg intramuscular injection 30 mg, IM, ONCE, 0 Refill(s) Inactive 05/11/2015 [facility] octreotide 20 mg intramuscular injection 40 mg, IM, ONCALL, 0 Refill(s) Active 05/11/2015 [facility] Sumatriptan 50 mg, 2 tab, Route: PO, Drug form: TAB, Daily, Dosing Weight 61.364, kg, PRN Headache 4-6, Start date: 05/11/15 10:57:00, Duration: 30 day, Stop date: 06/10/15 10:56:00, migraineNotes: (Same As: Imi trex) Inactive 05/11/2015 [facility] tramadol hydrochloride 50 MG Oral Tablet 50 mg, 1 tab, Route: PO, Drug form: TAB, Q6H, Dosing Weight 61.364, kg, PRN Pain Score 1-5, Start date: 05/11/15 10:57:00, Duration: 30 day, Stop date: 06/10/15 10:56:00Notes: Not to exceed 400mg/day. (Same As: Ultram) Inactive 05/11/2015 [facility] Celebrex 200 mg, 1 cap, Route: PO, Drug form: CAP, Daily, Dosing Weight 61.364, kg, PRN Pain Score 1-5, Start date: 05/11/15 10:57:00, Duration: 30 day, Stop date: 06/10/15 10:56:00Notes: NSAID. Please check ind ication. Not for seizure. (Same As: CeleBREX) Inactive 05/11/2015 [facility] Alprazolam 0.25 MG Oral Tablet [Xanax] 0.25 mg, 1 tab, Route: PO, Drug form: TAB, TID, Dosing Weight 61.364, kg, PRN as needed for anxiety, Start date: 05/11/15 10:57:00, Duration: 30 day, Stop date: 06/10/15 10:56:00Notes: With food or milk (Same as: Xanax) Inactive 05/11/2015 [facility] nitroglycerin 0.4 mg sublingual tablet 0.4 mg, 1 tab, Route: SL, Drug form: TAB, Q5Min, PRN Chest Pain, Start date: 05/10/15 20:50:00, Duration: 30 day, Stop date: 06/09/15 20:49:00Notes: (Same as:Nitroquick, Nitrostat) "Do Not Crush" Sublingual tablet No Longer Active 05/11/2015 [facility] atropine 0.5 mg, 5 mL, Route: IVP, Drug form: INJ, PRN, PRN Bradycardia, Start date: 05/10/15 20:48:00, Duration: 30 day, Stop date: 06/09/15 20:47:00 No Longer Active 05/11/2015 [facility] Tylenol 650 mg, Route: PO, Drug form: TAB, Q6H, Dosing Weight 61.364, kg, PRN Pain Score 1-3, Start date: 05/10/15 18:50:00, Duration: 30 day, Stop date: 06/09/15 18:49:00 Inactive 05/10/2015 [facility] celecoxib 200 MG Oral Capsule [Celebrex] 200 mg=1 cap, PO, Daily, PRN Other -See Comment, 0 Refill(s) Active 05/10/2015 [facility] Alprazolam 0.25 MG Oral Tablet [Xanax] 0.25 mg=1 tab, PO, TID, PRN as needed for anxiety, 0 Refill(s) Active 05/10/2015 [facility] SUMAtriptan 50 mg oral tablet 50 mg=1 tab, PO, Daily, PRN as needed for migraines, 0 Refill(s) Active 05/10/2015 [facility] Enoxaparin 40 mg, 0.4 mL, Route: SUB-Q, Drug form: INJ, [id number], Dosing Weight 61.364, kg, Start date: 05/10/15 18:00:00, Duration: 30 day, Stop date: 06/08/15 18:00:00Notes: (Same as: Lovenox) No Longer Active 05/10/2015 [facility] Acetaminophen 650 mg, 2 tab, Route: PO, Drug form: TAB, Q4H, Dosing Weight 61.364, kg, PRN Pain 1-3/Temp > 100.4 F, Start date: 05/10/15 17:56:00, Duration: 30 day, Stop date: 06/09/15 17:55:00Notes: Do not exceed 4 gm/day. (Same as: Tylenol) No Longer Active 05/10/2015 [facility] Docusate 100 mg, 1 cap, Route: PO, Drug form: CAP, BID, Dosing Weight 61.364, kg, PRN Constipation, Start date: 05/10/15 17:56:00, Duration: 30 day, Stop date: 06/09/15 17:55:00Notes: (Same as: Colace) (Do Not Crush) No Longer Active 05/10/2015 [facility] Ondansetron 4 mg, 2 mL, Route: IVP, Drug form: INJ, Q6H, Dosing Weight 61.364, kg, PRN Nausea & Vomiting, Start date: 05/10/15 17:56:00, Duration: 30 day, Stop date: 06/09/15 17:55:00Notes: (Same as: Zofran) MEDICATION WASTE Product Size: 4 mg Product Wasted: ___ mg No Longer Active 05/10/2015 [facility] SandoSTATIN [place] 40 mg, Route: IM, Drug form: PDR/INJ, ONCE, Start date: 04/23/15 9:00:00, Stop date: 04/23/15 9:00:00Notes: Non- Formulary Drug. Inactive 04/23/2015 [facility] octreotide 20 mg intramuscular injection 40 mg, IM, ONCALL, 0 Refill(s) Active 04/02/2015 [facility] SandoSTATIN [place] 40 mg, Route: IM, Drug form: PDR/INJ, ONCALL, Start date: 04/02/15 9:00:00, Duration: 8 hr, Stop date: 04/02/15 16:59:00Notes: Non-Formulary Drug. (Same As: SandoSTATIN [place]). Refrigerate. Inactive 04/02/2015 [facility] SandoSTATIN [place] 40 mg, Route: IM, Drug form: PDR/INJ, ONCALL, Start date: 03/14/15 9:00:00, Duration: 8 hr, Stop date: 03/14/15 16:59:00Notes: Non-Formulary Drug. (Same As: SandoSTATIN [place]). Refrigerate. Inactive 03/14/2015 [facility] SandoSTATIN [place] 30 mg, Route: IM, Drug form: INJ, ONCE, Start date: 02/13/15 9:00:00, Stop date: 02/13/15 9:00:00Notes: Non- Formulary Drug. (Same As: SandoSTATIN [place]). Refrigerate. Inactive 02/13/2015 [facility] doxycycline hyclate 100 mg oral tablet 100 mg=1 tab, PO, Q12H, X 14 day, # 28 tab, 0 Refill(s) Active 01/09/2015 [facility] Protonix 40 mg, 1 tab, Route: PO, Drug form: ECTAB, Before Dinner, Start date: 01/08/15 16:30:00, Duration: 30 day, Stop date: 02/06/15 16:30:00Notes: Tablet should not be chewed or crushed. (Same as: Protonix) No Longer Active 01/08/2015 [facility] Lisinopril 20 mg, 1 tab, Route: PO, Drug form: TAB, Daily, Dosing Weight 61.364, kg, Start date: 01/08/15 9:00:00, Duration: 30 day, Stop date: 02/06/15 9:00:00Notes: (Same as: Prinivil, Zestril) No Longer Active 01/08/2015 [facility] gabapentin 400 MG Oral Capsule 400 mg, 1 cap, Route: PO, Drug form: CAP, TID, Dosing Weight 61.364, kg, Start date: 01/08/15 9:00:00, Duration: 30 day, Stop date: 02/06/15 17:00:00Notes: (Same as: Neurontin) No Longer Active 01/08/2015 [facility] Dexilant 60 mg, Route: PO, Drug form: DRC, Daily, Dosing Weight 61.364, kg, Start date: 01/08/15 9:00:00, Duration: 30 day, Stop date: 02/06/15 9:00:00 No Longer Active 01/08/2015 [facility] nitroglycerin 0.4 mg sublingual tablet 0.4 mg, 1 tab, Route: SL, Drug form: TAB, Q5Min, PRN Chest Pain, Start date: 01/07/15 21:11:00, Duration: 30 day, Stop date: 02/06/15 21:10:00Notes: (Same as:Nitroquick, Nitrostat) "Do Not Crush" Sublingual tablet No Longer Active 01/08/2015 [facility] atropine 0.5 mg, 5 mL, Route: IVP, Drug form: INJ, PRN, PRN Bradycardia, Start date: 01/07/15 21:11:00, Duration: 30 day, Stop date: 02/06/15 21:10:00 No Longer Active 01/08/2015 [facility] Vancomycin 750 mg, 150 mL, Route: IVPB, Drug form: INJ, [id number], Dosing Weight 61.364, kg, Start date: 01/07/15 20:00:00, Duration: 30 day, Stop date: 02/06/15 4:00:00Notes: Same as: Vancocin Infusion rate 2001 mg: infuse over 2.5 hours No Longer Active 01/08/2015 [facility] Solu-Medrol 40 mg, 1 mL, Route: IVP, Drug form: INJ, Q12H, Dosing Weight 61.364, kg, Priority: NOW, Start date: 01/07/15 19:45:00, Duration: 30 day, Stop date: 02/06/15 9:00:00Notes: (Same as:Solu-MEDROL, A-Meth apred) No Longer Active 01/08/2015 [facility] tramadol hydrochloride 50 MG Oral Tablet 50 mg, 1 tab, Route: PO, Drug form: TAB, Q6H, Dosing Weight 61.364, kg, PRN Pain 1-3/Temp > 100.4 F, Start date: 01/07/15 19:35:00, Duration: 3 day, Stop date: 01/10/15 19:34:00Notes: Not to exceed 400mg/day. (Same As: Ultram) No Longer Active 01/08/2015 [facility] Ceftriaxone 1 gm, Route: IVPB, Q24H, Dosing Weight 61.364, kg, Priority: STAT, Start date: 01/07/15 14:18:00, Duration: 30 day, Stop date: 02/05/15 13:00:00Notes: (Same As: Rocephin). Use with 100ml NS mini-bag PLUS and infuse over 30 min MEDICATION WASTE Product Size: 1000 mg Product Wasted: ___ mg No Longer Active 01/07/2015 [facility] Dilaudid 0.5 mg, 0.5 mL, Route: IVP, Drug form: INJ, Q6H, Dosing Weight 61.364, kg, PRN Headache 1-5, Priority: STAT, Start date: 01/07/15 14:18:00, Duration: 30 day, Stop date: 02/06/15 14:17:00 No Longer Active 01/07/2015 [facility] Saline Flush 0.9% 10 ml, Route: IVP, Drug Form: INJ, Dosing Weight 61.364, kg, PRN, PRN Line Flush, Start date: 01/07/15 14:18:00, Duration: 30 day, Stop date: 02/06/15 14:17:00Notes: Same as: BD Posiflush Sterile No Longer Active 01/07/2015 [facility] Ondansetron 4 mg, 2 mL, Route: IVP, Drug form: INJ, Q8H, Dosing Weight 61.364, kg, PRN Nausea & Vomiting, Start date: 01/07/15 14:18:00, Duration: 30 day, Stop date: 02/06/15 14:17:00Notes: (Same as: Zofran) MEDICATION WASTE Product Size: 4 mg Product Wasted: ___ mg No Longer Active 01/07/2015 [facility] Vancomycin 1 gm, 200 mL, Route: IVPB, Drug form: INJ, ONCE, Dosing Weight 61.364, kg, Priority: STAT, Start date: 01/07/15 13:50:00, Stop date: 01/07/15 13:50:00 Inactive 01/07/2015 [facility] Octreotide 12 MG/ML Injectable Suspension [Sandostatin] See Instructions, IM q 21 days, 0 Refill(s)Special Instructions: IM q 21 days Active 01/07/2015 [facility] gabapentin 400 MG Oral Capsule 400 mg=1 cap, PO, TID, 0 Refill(s) Active 01/07/2015 [facility] dexlansoprazole 60 MG Enteric Coated Capsule [Dexilant] 60 mg=1 cap, PO, Daily, 0 Refill(s) Active 01/07/2015 [facility] lisinopril 20 mg oral tablet 20 mg=1 tab, PO, Daily, # 30 tab, 0 Refill(s) Active 01/07/2015 [facility] tramadol hydrochloride 50 MG Oral Tablet 50 mg=1 tab, PO, Q6H, PRN Pain, # 40 tab, 0 Refill(s) Active 01/07/2015 [facility] Ceftriaxone 1 gm, Route: IVPB, ONCE, Dosing Weight 61.364, kg, Priority: STAT, Start date: 01/07/15 12:15:00, Stop date: 01/07/15 12:15:00Notes: (Same As: Rocephin). Use with 100ml NS mini-bag PLUS and infuse over 30 min MEDICATION WASTE Product Size: 1000 mg Product Wasted: ___ mg Inactive 01/07/2015 [facility] Dilaudid 0.5 mg, 0.5 mL, Route: IVP, Drug form: INJ, ONCE, Dosing Weight 61.364, kg, Priority: STAT, Start date: 01/07/15 11:43:00, Stop date: 01/07/15 11:43:00 Inactive 01/07/2015 [facility] Allergies, Adverse Reactions, Alerts Substance Category Reaction Severity Reaction type Status Date Reported Comments Source aspirin Assertion itching, lips swell Drug allergy Active [facility] morphine Assertion nightmares, hives Drug allergy Active [facility] streptomycin Assertion itching, lips swell Drug allergy Active [facility] sulfa drugs Assertion nausea Drug allergy Active [facility] Levaquin Assertion hives Drug allergy Active [facility] penicillins Assertion lip swelling, itching Drug allergy Active [facility] doxycycline Assertion hives Drug allergy Active [facility] Immunizations Immunization Date Given Site Status Last Updated Comments Source diphtheria/pertussis, acel/tetanus adult 01/18/2017 [facility]/pertussis, acel/tetanus adult 01/18/2017 Left deltoid completed [facility] Results Order Name Results Value Reference Range Date Interpretation Comments Source Knee 3 Views Bilateral DX Knee 3 Views Bilateral DX Patient Name: LATASHA LUQUE : 1950; Age: 68 years y/o Female MR: [id number] Study: Knee 3 Views Bilateral DX dated 02/03/2019. Clinical Indication: - M25.562 Pain in left knee, M25.561 Pain in right knee; Comparison: None Right knee: Mild tricompartment degenerative changes about the right knee. No fracture or dislocation. Minimal right knee effusion. Left knee: The left patella is not identified. There appears to be old deformity of the left proximal tibial metaphyseal and diaphyseal region. There is marked loss of joint space to the medial joint compartment with loss of joint space to the lateral joint compartment. No acute fracture or dislocation. Mild to moderate degenerative changes about the medial and lateral joint compartments. SL: [id number] 02/03/2019 - - Read by: Adilson Allison MD Dictated Date/time: 02/04/19 10:39 Electronically Signed by: Adilson Allison MD 02/04/19 10:42 FINAL REPORT [facility] ELECTROLYTES AGAP 9.7 meq/L 10.0 - 20.0 01/18/2017 [facility] ELECTROLYTES Sodium Lvl 142 meq/L 135 - 145 01/18/2017 [facility] ELECTROLYTES Calcium Lvl 8.5 mg/dL 8.5 - 10.5 01/18/2017 [facility] ELECTROLYTES CO2 29 meq/L 24 - 32 01/18/2017 [facility] ELECTROLYTES Chloride Lvl 107 meq/L 95 - 109 01/18/2017 [facility] ELECTROLYTES Potassium Lvl 3.7 meq/L 3.5 - 5.1 01/18/2017 [facility] ELECTROLYTES Creatinine Lvl 0.91 mg/dL 0.50 - 1.40 01/18/2017 [facility] ELECTROLYTES BUN 15 mg/dL 7 - 22 01/18/2017 [facility] ELECTROLYTES Glucose Lvl 74 mg/dL 70 - 99 01/18/2017 [facility] eGFR 66 mL/min/1.73m2 01/18/2017 Result Comment: The eGFR is calculated using the [...] from the National Kidney Disease Education Program (NKDEP) which additionally recommends that when the eGFR is used in patients with extremes of body mass index for purposes of drug dosing, the eGFR should be multiplied by the estimated BMI. [facility] Hct 36.4 % 36.0 - 48.0 01/18/2017 [facility] RBC 4.40 M/CMM 4.20 - 5.40 01/18/2017 [facility] Hgb 12.2 g/dL 12.0 - 16.0 01/18/2017 [facility] WBC 7.3 K/CMM 3.7 - 10.4 01/18/2017 [facility] MPV 9.0 fL 7.4 - 10.4 01/18/2017 [facility] Platelet 274 K/CMM 133 - 450 01/18/2017 [facility] RDW 16.4 % 11.5 - 14.5 01/18/2017 [facility] MCV 82.6 fL 80.0 - 98.0 01/18/2017 [facility] MCHC 33.5 g/dL 32.0 - 36.0 01/18/2017 [facility] MCH 27.6 pg 27.0 - 31.0 01/18/2017 [facility] Monocytes # 0.8 K/CMM 0.0 - 0.8 01/18/2017 [facility] Eosinophils # 0.2 K/CMM 0.0 - 0.5 01/18/2017 [facility] Monocytes 11.3 % 2.0 - 12.0 01/18/2017 [facility] Eosinophils 2.3 % 0.0 - 4.0 01/18/2017 [facility] Basophils 0.6 % 0.0 - 1.0 01/18/2017 [facility] Segs-Bands # 4.7 K/CMM 1.5 - 8.1 01/18/2017 [facility] Lymphocytes # 1.6 K/CMM 1.0 - 5.5 01/18/2017 [facility] Segs 64.4 % 45.0 - 75.0 01/18/2017 [facility] Lymphocytes 21.4 % 20.0 - 40.0 01/18/2017 [facility] Foot series DX Foot series DX Study: Portable right foot, 3 views Clinical Indication: Right foot pain, swelling, redness; Comparison: None FINDINGS: There is generalized osteopenia. No fracture or bone destruction is identified. There is soft tissue swelling medial to the great toe metatarsophalangeal joint. Minor hypertrophic changes involve the midfoot anteriorly. There is mild dorsal soft tissue swelling. No soft tissue gas or ulceration is identified. SL: [id number] 01/18/2017 - - Read by: Ash Alves MD Dictated Date/time: 01/18/17 17:21 Electronically Signed by: Ash Alves MD 01/18/17 17:22 FINAL REPORT [facility] CHEM PANEL Magnesium Lvl 2.0 mg/dL 1.8 - 2.4 05/14/2016 [facility] CHEM PANEL BUN 14 mg/dL 7 - 22 05/14/2016 [facility] CHEM PANEL Sodium Lvl 141 meq/L 135 - 145 05/14/2016 [facility] CHEM PANEL Creatinine Lvl 0.67 mg/dL 0.50 - 1.40 05/14/2016 [facility] CHEM PANEL Potassium Lvl 3.6 meq/L 3.5 - 5.1 05/14/2016 [facility] CHEM PANEL CO2 23 meq/L 24 - 32 05/14/2016 [facility] CHEM PANEL Calcium Lvl 7.6 mg/dL 8.5 - 10.5 05/14/2016 [facility] CHEM PANEL AGAP 12.6 meq/L 10.0 - 20.0 05/14/2016 [facility] CHEM PANEL Chloride Lvl 109 meq/L 95 - 109 05/14/2016 [facility] CHEM PANEL eGFR 92 mL/min/1.73m2 05/14/2016 Result Comment: The eGFR is calculated using the [...] from the National Kidney Disease Education Program (NKDEP) which additionally recommends that when the eGFR is used in patients with extremes of body mass index for purposes of drug dosing, the eGFR should be multiplied by the estimated BMI. [facility] CHEM PANEL Glucose Lvl 124 mg/dL 70 - 99 05/14/2016 [facility] CARDIAC ENZYMES CK MB Index 1.7 0.0 - 2.5 05/14/2016 [facility] CARDIAC ENZYMES CK MB 1.3 ng/mL 0.5 - 3.6 05/14/2016 [facility] CARDIAC ENZYMES Troponin-I 0.20 ng/mL 0.00 - 0.40 05/14/2016 [facility] CARDIAC ENZYMES Total CK 76 unit/L 05/14/2016 [facility] CARDIAC ENZYMES Troponin-I 0.19 ng/mL 0.00 - 0.40 05/13/2016 [facility] CARDIAC ENZYMES Total CK 70 unit/L 05/13/2016 [facility] CARDIAC ENZYMES CK MB Index 1.2 0.0 - 2.5 05/13/2016 [facility] CARDIAC ENZYMES Troponin-I null 0.00 - 0.40 05/13/2016 [facility] CARDIAC ENZYMES Total CK 68 unit/L 05/13/2016 [facility] CARDIAC ENZYMES CK MB 0.8 ng/mL 0.5 - 3.6 05/13/2016 [facility] CHEM PANEL eGFR 61 mL/min/1.73m2 05/13/2016 Result Comment: The eGFR is calculated using the [...] from the National Kidney Disease Education Program (NKDEP) which additionally recommends that when the eGFR is used in patients with extremes of body mass index for purposes of drug dosing, the eGFR should be multiplied by the estimated BMI. [facility] CHEM PANEL Alk Phos 141 unit/L 39 - 136 05/13/2016 [facility] CHEM PANEL AST 26 unit/L 0 - 37 05/13/2016 [facility] CHEM PANEL ALT 33 unit/L 0 - 65 05/13/2016 [facility] CHEM PANEL Albumin Lvl 3.5 g/dL 3.5 - 5.0 05/13/2016 [facility] CHEM PANEL Total Protein 6.8 g/dL 6.4 - 8.4 05/13/2016 [facility] CHEM PANEL Chloride Lvl 106 meq/L 95 - 109 05/13/2016 [facility] CHEM PANEL CO2 25 meq/L 24 - 32 05/13/2016 [facility] CHEM PANEL Calcium Lvl 7.5 mg/dL 8.5 - 10.5 05/13/2016 [facility] CHEM PANEL B/C Ratio 14 6 - 25 05/13/2016 [facility] CHEM PANEL AGAP 12.0 meq/L 10.0 - 20.0 05/13/2016 [facility] CHEM PANEL Bili Total 0.8 mg/dL 0.2 - 1.3 05/13/2016 [facility] CHEM PANEL Globulin 3.3 g/dL 2.7 - 4.2 05/13/2016 [facility] CHEM PANEL A/G Ratio 1.1 0.7 - 1.6 05/13/2016 [facility] CHEM PANEL Sodium Lvl 139 meq/L 135 - 145 05/13/2016 [facility] CHEM PANEL Creatinine Lvl 0.98 mg/dL 0.50 - 1.40 05/13/2016 [facility] CHEM PANEL Potassium Lvl 4.0 meq/L 3.5 - 5.1 05/13/2016 [facility] CHEM PANEL Glucose Lvl 136 mg/dL 70 - 99 05/13/2016 [facility] CHEM PANEL BUN 14 mg/dL 7 - 22 05/13/2016 [facility] HEMATOLOGY Monocytes 7.3 % 2.0 - 12.0 05/13/2016 [facility] HEMATOLOGY Segs 82.5 % 45.0 - 75.0 05/13/2016 [facility] HEMATOLOGY Lymphocytes 9.6 % 20.0 - 40.0 05/13/2016 [facility] HEMATOLOGY Basophils 0.6 % 0.0 - 1.0 05/13/2016 [facility] HEMATOLOGY Segs-Bands # 8.7 K/CMM 1.5 - 8.1 05/13/2016 [facility] HEMATOLOGY Basophils # 0.1 K/CMM 0.0 - 0.2 05/13/2016 [facility] HEMATOLOGY Lymphocytes # 1.0 K/CMM 1.0 - 5.5 05/13/2016 [facility] HEMATOLOGY Monocytes # 0.8 K/CMM 0.0 - 0.8 05/13/2016 [facility] HEMATOLOGY MPV 9.6 fL 7.4 - 10.4 05/13/2016 [facility] HEMATOLOGY Platelet 282 K/CMM 133 - 450 05/13/2016 [facility] HEMATOLOGY WBC 10.5 K/CMM 3.7 - 10.4 05/13/2016 [facility] HEMATOLOGY RBC 4.83 M/CMM 4.20 - 5.40 05/13/2016 [facility] Hgb 13.3 g/dL 12.0 - 16.0 05/13/2016 [facility] MCV 82.8 fL 80.0 - 98.0 05/13/2016 [facility] Hct 40.0 % 36.0 - 48.0 05/13/2016 [facility] MCHC 33.2 g/dL 32.0 - 36.0 05/13/2016 [facility] RDW 15.7 % 11.5 - 14.5 05/13/2016 [facility] MCH 27.5 pg 27.0 - 31.0 05/13/2016 [facility] Chest 1view DX Chest 1view DX Study: Chest 1view DX 05/13/2016 12:17 PM CDT Patient Name: LATASHA LUQUE MR: [id number] : 1950; Age: 65 years y/o Female Ordering Physician: David Bonner MD Clinical Indication: Chest pain Comparison: 04/13/2016. FINDINGS LUNGS: The lungs remain hyperinflated with a small right pleural effusion or thickening. No interval consolidation or pneumothorax. The trachea again remains dilated the venotomy to the right midline. HEART AND MEDIASTINUM: Heart size remains at the upper limits of normal. The thoracic aorta remains mildly tortuous. LINES: None. OSSEOUS STRUCTURES: No fracture, dislocation, or suspicious focal osseous lesion. OTHER: None. IMPRESSION: 1. No important interval change. SL: [id number] 05/13/2016 - - Read by: Theodore Robison MD Dictated Date/time: 05/13/16 13:24 Electronically Signed by: Theodore Robison MD 05/13/16 13:26 FINAL REPORT [facility] CHEM PANEL Magnesium Lvl 2.4 mg/dL 1.8 - 2.4 04/15/2016 [facility] CHEM PANEL eGFR 91 mL/min/1.73m2 04/15/2016 Result Comment: The eGFR is calculated using the [...] from the National Kidney Disease Education Program (NKDEP) which additionally recommends that when the eGFR is used in patients with extremes of body mass index for purposes of drug dosing, the eGFR should be multiplied by the estimated BMI. [facility] CHEM PANEL Bili Total 0.6 mg/dL 0.2 - 1.3 04/15/2016 [facility] CHEM PANEL BUN 15 mg/dL 7 - 22 04/15/2016 [facility] CHEM PANEL Glucose Lvl 111 mg/dL 70 - 99 04/15/2016 [facility] CHEM PANEL Sodium Lvl 140 meq/L 135 - 145 04/15/2016 [facility] CHEM PANEL Creatinine Lvl 0.70 mg/dL 0.50 - 1.40 04/15/2016 [facility] CHEM PANEL CO2 26 meq/L 24 - 32 04/15/2016 [facility] CHEM PANEL Total Protein 6.5 g/dL 6.4 - 8.4 04/15/2016 [facility] CHEM PANEL Calcium Lvl 8.1 mg/dL 8.5 - 10.5 04/15/2016 [facility] CHEM PANEL Albumin Lvl 3.5 g/dL 3.5 - 5.0 04/15/2016 [facility] CHEM PANEL AST 18 unit/L 0 - 37 04/15/2016 [facility] CHEM PANEL ALT 27 unit/L 0 - 65 04/15/2016 [facility] CHEM PANEL Alk Phos 124 unit/L 39 - 136 04/15/2016 [facility] CHEM PANEL Potassium Lvl 3.9 meq/L 3.5 - 5.1 04/15/2016 [facility] CHEM PANEL Chloride Lvl 107 meq/L 95 - 109 04/15/2016 [facility] CHEM PANEL A/G Ratio 1.2 0.7 - 1.6 04/15/2016 [facility] CHEM PANEL Globulin 3.0 g/dL 2.0 - 4.0 04/15/2016 [facility] CHEM PANEL AGAP 10.9 meq/L 10.0 - 20.0 04/15/2016 [facility] CHEM PANEL B/C Ratio 21 6 - 25 04/15/2016 [facility] HEMATOLOGY Monocytes # 0.4 K/CMM 0.0 - 0.8 04/15/2016 [facility] HEMATOLOGY Lymphocytes # 1.4 K/CMM 1.0 - 5.5 04/15/2016 [facility] HEMATOLOGY Basophils 0.6 % 0.0 - 1.0 04/15/2016 [facility] HEMATOLOGY Eosinophils 0.5 % 0.0 - 4.0 04/15/2016 [facility] HEMATOLOGY Monocytes 8.7 % 2.0 - 12.0 04/15/2016 [facility] Lymphocytes 28.9 % 20.0 - 40.0 04/15/2016 [facility] Segs-Bands # 2.9 K/CMM 1.5 - 8.1 04/15/2016 [facility] Segs 61.3 % 45.0 - 75.0 04/15/2016 [facility] INR 1.44 0.85 - 1.17 04/15/2016 [facility] PT 17.9 s 12.0 - 14.7 04/15/2016 [facility] RBC 4.71 M/CMM 4.20 - 5.40 04/15/2016 [facility] WBC 4.8 K/CMM 3.7 - 10.4 04/15/2016 [facility] Hct 38.5 % 36.0 - 48.0 04/15/2016 [facility] MCV 81.6 fL 80.0 - 98.0 04/15/2016 [facility] MCH 27.3 pg 27.0 - 31.0 04/15/2016 [facility] Platelet 218 K/CMM 133 - 450 04/15/2016 [facility] RDW 15.0 % 11.5 - 14.5 04/15/2016 [facility] Hgb 12.9 g/dL 12.0 - 16.0 04/15/2016 [facility] MCHC 33.5 g/dL 32.0 - 36.0 04/15/2016 [facility] MPV 9.2 fL 7.4 - 10.4 04/15/2016 [facility] URINE AND STOOL UA Color Ltyellow 04/15/2016 [facility] URINE AND STOOL UA Urobilinogen <=1.0 mg/dL 0.1 - 1.0 04/15/2016 [facility] URINE AND STOOL UA Sq Epi None Seen 04/15/2016 [facility] URINE AND STOOL UA Leuk Est Negative (04/14/16 8:37 PM) Negative 04/15/2016 [facility] URINE AND STOOL UA WBC null 0 - 5 04/15/2016 [facility] URINE AND STOOL UA Mucus Few /LPF None Seen /LPF 04/15/2016 [facility] URINE AND STOOL UA Bili Negative *NA* (04/14/16 8:37 PM) Negative 04/15/2016 [facility] URINE AND STOOL UA Blood Negative (04/14/16 8:37 PM) Negative 04/15/2016 [facility] URINE AND STOOL UA Nitrite Negative (04/14/16 8:37 PM) Negative 04/15/2016 [facility] URINE AND STOOL UA Turbidity Clear (04/14/16 8:37 PM) Clear 04/15/2016 [facility] URINE AND STOOL UA Spec Grav 1.012 <=1.030 04/15/2016 [facility] URINE AND STOOL UA pH 6.0 5.0 - 8.0 04/15/2016 [facility] URINE AND STOOL UA Glucose Negative mg/dL Negative mg/dL 04/15/2016 [facility] URINE AND STOOL UA Protein Negative mg/dL Negative mg/dL 04/15/2016 [facility] URINE AND STOOL UA Ketones Negative mg/dL Negative mg/dL 04/15/2016 [facility] CARDIAC ENZYMES Troponin-I null 0.00 - 0.40 04/14/2016 [facility] CARDIAC ENZYMES Troponin-I null 0.00 - 0.40 04/14/2016 [facility] CARDIAC ENZYMES Troponin-I null 0.00 - 0.40 04/14/2016 [facility] CARDIAC ENZYMES CK MB Index 1.8 0.0 - 2.5 04/13/2016 [facility] CARDIAC ENZYMES BNP 69 pg/mL <=100 pg/mL 04/13/2016 [facility] CARDIAC ENZYMES CK MB 1.6 ng/mL 0.5 - 3.6 04/13/2016 [facility] CARDIAC ENZYMES Total CK 91 unit/L 12 - 191 04/13/2016 [facility] CHEM PANEL eGFR 90 mL/min/1.73m2 04/13/2016 Result Comment: The eGFR is calculated using the [...] from the National Kidney Disease Education Program (NKDEP) which additionally recommends that when the eGFR is used in patients with extremes of body mass index for purposes of drug dosing, the eGFR should be multiplied by the estimated BMI. [facility] CHEM PANEL Sodium Lvl 142 meq/L 135 - 145 04/13/2016 [facility] CHEM PANEL Potassium Lvl 3.5 meq/L 3.5 - 5.1 04/13/2016 [facility] CHEM PANEL Creatinine Lvl 0.71 mg/dL 0.50 - 1.40 04/13/2016 [facility] CHEM PANEL Glucose Lvl 147 mg/dL 70 - 99 04/13/2016 [facility] CHEM PANEL BUN 15 mg/dL 7 - 22 04/13/2016 [facility] CHEM PANEL Alk Phos 128 unit/L 39 - 136 04/13/2016 [facility] CHEM PANEL AST 20 unit/L 0 - 37 04/13/2016 [facility] CHEM PANEL AGAP 13.5 meq/L 10.0 - 20.0 04/13/2016 [facility] CHEM PANEL Bili Total 0.4 mg/dL 0.2 - 1.3 04/13/2016 [facility] CHEM PANEL B/C Ratio 21 6 - 25 04/13/2016 [facility] CHEM PANEL Chloride Lvl 109 meq/L 95 - 109 04/13/2016 [facility] CHEM PANEL CO2 23 meq/L 24 - 32 04/13/2016 [facility] CHEM PANEL A/G Ratio 1.0 0.7 - 1.6 04/13/2016 [facility] CHEM PANEL Globulin 3.4 g/dL 2.0 - 4.0 04/13/2016 [facility] CHEM PANEL Total Protein 6.9 g/dL 6.4 - 8.4 04/13/2016 [facility] CHEM PANEL Calcium Lvl 7.8 mg/dL 8.5 - 10.5 04/13/2016 [facility] CHEM PANEL ALT 31 unit/L 0 - 65 04/13/2016 [facility] CHEM PANEL Albumin Lvl 3.5 g/dL 3.5 - 5.0 04/13/2016 [facility] HEMATOLOGY Eosinophils 0.4 % 0.0 - 4.0 04/13/2016 [facility] HEMATOLOGY Monocytes 9.1 % 2.0 - 12.0 04/13/2016 [facility] HEMATOLOGY Segs 59.5 % 45.0 - 75.0 04/13/2016 [facility] HEMATOLOGY Lymphocytes 30.0 % 20.0 - 40.0 04/13/2016 [facility] Monocytes # 0.5 K/CMM 0.0 - 0.8 04/13/2016 [facility] Basophils # 0.1 K/CMM 0.0 - 0.2 04/13/2016 [facility] Segs-Bands # 3.2 K/CMM 1.5 - 8.1 04/13/2016 [facility] Lymphocytes # 1.6 K/CMM 1.0 - 5.5 04/13/2016 [facility] Basophils 1.0 % 0.0 - 1.0 04/13/2016 [facility] RDW 15.2 % 11.5 - 14.5 04/13/2016 [facility] MCH 27.6 pg 27.0 - 31.0 04/13/2016 [facility] MCHC 33.8 g/dL 32.0 - 36.0 04/13/2016 [facility] MPV 9.4 fL 7.4 - 10.4 04/13/2016 [facility] Platelet 277 K/CMM 133 - 450 04/13/2016 [facility] Hct 39.2 % 36.0 - 48.0 04/13/2016 [facility] Hgb 13.2 g/dL 12.0 - 16.0 04/13/2016 [facility] RBC 4.78 M/CMM 4.20 - 5.40 04/13/2016 [facility] WBC 5.4 K/CMM 3.7 - 10.4 04/13/2016 [facility] MCV 81.9 fL 80.0 - 98.0 04/13/2016 [facility] Chest Pulmonary Embolism CTA Chest Pulmonary Embolism CTA Patient Name: LATASHA LUQUE : 1950; Age: 65 years y/o Female MR: [id number] * COMPUTED TOMOGRAPHY SCAN OF THE CHEST -- CT PULMONARY ANGIOGRAPHY (pulmonary embolism protocol). with sagittal and coronal and 3-D (obtained on an independent workstation) reconstructions. HISTORY: Chest pain. Tachycardia, dyspnea Imaging studies reviewed: TECHNIQUE: Initially, high-resolution helical CT images were obtained through the chest from the just above the aortic arch to the lower chest during the dynamic intravenous administration of nonionic iodinated contrast timed for maximal pulmonary arterial opacification (CT pulmonary angiogram -- pulmonary embolism protocol technique). Three-dimensional rotational (performed on an independent workstation) and sagittal and coronal reconstructions were provided. Standard CT images were also obtained through the chest. CT radiation dose DLP: 335 mGy-cm FINDINGS: There is no evidence of pulmonary embolism. There is no evidence of an active or acute process. There are no infiltrates or pleural effusions. There is a tiny (3.5 mm) nodule posteriorly in the left lower lobe best on image 38 of series 4 and image 50 of series 3 (lung windows). No other pulmonary nodules are seen. There is a minimal area of reticular and cystic change posteriorly in the right upper lobe, probably related to prior inflammatory disease. The anatomy of the right lung is distorted, possibly the patient has had prior lung surgery on the right. There also appears to be volume loss. Please correlate with surgical history. The heart is normal in size. There is no pericardial effusion. The aorta is normal in caliber. There is no aneurysm or dissection. There is moderate tortuosity descending thoracic aorta. No suspicious mass or adenopathy is seen within the chest. Mild degenerative changes are noted in the thoracic spine. There is mild to moderate thoracolumbar scoliosis. The regional skeleton is otherwise unremarkable. The upper portion of the liver was visualized. It appears the patient has undergone a partial right hepatectomy. Please correlate with surgical history. There is prominence of the left lobe which extends across the midline into the left upper quadrant, probably compensatory changes. There is a 12 mm low-density lesion in the upper pole of the right kidney consistent with a small cyst. IMPRESSION: 1. No evidence of an active or acute process. 2. No evidence of pulmonary emboli. 3. Tiny nonspecific left lower lobe pulmonary nodule. 4. Small area of reticular and cystic densities in the right upper lobe, probable postinflammatory change. 5. The anatomy of the right lung is somewhat distorted, possible prior right lung surgery. Please correlate with surgical history. 6. Appear the patient is status post partial right hepatectomy. 7. Small low-density lesion involving the upper pole the right kidney consistent with a cyst. SL: EDIE 04/13/2016 - - Read by: Howie Navarro MD Dictated Date/time: 04/13/16 21:15 Electronically Signed by: Howie Navarro MD 04/13/16 21:31 FINAL REPORT [facility] Chest 1view DX Chest 1view DX Patient Name: LATASHA LUQUE : 1950; Age: 65 years y/o Female MR: [id number] * CHEST, portable, 1 view HISTORY: Chest pain; COMPARISON: 05/10/2015. IMPRESSION: 1. There are chronic changes involving the right hilar region. There is distortion of the right hilum probably related to volume loss and retraction. There is displacement of the trachea to the right and linear scarring in the right upper lobe. The appearance is unchanged from 05/10/2015. 2. There is flattening the hemidiaphragms suggestive of chronic obstructive pulmonary disease. 3. There is no evidence of an active or acute process or change the prior study. No infiltrates or pleural effusions are seen. 4. Mild cardiomegaly without overt failure. 5. Mild thoracolumbar scoliosis. SL: EDIE 04/13/2016 - - Read by: Howie Navarro MD Dictated Date/time: 04/13/16 19:25 Electronically Signed by: Howie Navarro MD 04/13/16 19:27 FINAL REPORT [facility] PANEL Chromogranin A 5 ng/mL < OR=15 ng/mL 02/27/2016 Result Comment: This test was performed using a laboratory developed electrochemiluminescent method. Values obtained with different assay methods cannot be used interchangeably. Chromogranin A levels, regardless of value, should not be interpreted as absolute evidence of the presence or absence of disease. This test was developed and its analytical performance characteristics have been determined by [facility]. It has not been cleared or approved by FDA. This assay has been validated pursuant to the CLIA regulations and is used for clinical purposes. Test Performed at: [facility] [address] [id number] Jessica Trinh MD, PhD [facility] PANEL eGFR 92 mL/min/1.73m2 02/27/2016 Result Comment: The eGFR is calculated using the [...] from the National Kidney Disease Education Program (NKDEP) which additionally recommends that when the eGFR is used in patients with extremes of body mass index for purposes of drug dosing, the eGFR should be multiplied by the estimated BMI. [facility] CHEM PANEL Chloride Lvl 106 meq/L 95 - 109 02/27/2016 [facility] CHEM PANEL CO2 26 meq/L 24 - 32 02/27/2016 [facility] CHEM PANEL Potassium Lvl 4.1 meq/L 3.5 - 5.1 02/27/2016 [facility] CHEM PANEL Sodium Lvl 141 meq/L 135 - 145 02/27/2016 [facility] CHEM PANEL Glucose Lvl 103 mg/dL 70 - 99 02/27/2016 [facility] CHEM PANEL BUN 24 mg/dL 7 - 22 02/27/2016 [facility] CHEM PANEL Creatinine Lvl 0.68 mg/dL 0.50 - 1.40 02/27/2016 [facility] CHEM PANEL Alk Phos 130 unit/L 39 - 136 02/27/2016 [facility] CHEM PANEL Bili Total 0.5 mg/dL 0.2 - 1.3 02/27/2016 [facility] CHEM PANEL ALT 31 unit/L 0 - 65 02/27/2016 [facility] CHEM PANEL AST 17 unit/L 0 - 37 02/27/2016 [facility] CHEM PANEL Calcium Lvl 8.6 mg/dL 8.5 - 10.5 02/27/2016 [facility] CHEM PANEL Total Protein 7.2 g/dL 6.4 - 8.4 02/27/2016 [facility] CHEM PANEL Albumin Lvl 3.7 g/dL 3.5 - 5.0 02/27/2016 [facility] CHEM PANEL B/C Ratio 35 6 - 25 02/27/2016 [facility] CHEM PANEL Globulin 3.5 g/dL 2.0 - 4.0 02/27/2016 [facility] CHEM PANEL AGAP 13.1 meq/L 10.0 - 20.0 02/27/2016 [facility] CHEM PANEL A/G Ratio 1.1 0.7 - 1.6 02/27/2016 [facility] HEMATOLOGY MPV 8.8 fL 7.4 - 10.4 02/27/2016 [facility] HEMATOLOGY Platelet 220 K/CMM 133 - 450 02/27/2016 [facility] HEMATOLOGY Hgb 13.3 g/dL 12.0 - 16.0 02/27/2016 [facility] MCHC 32.6 g/dL 32.0 - 36.0 02/27/2016 [facility] MCH 27.1 pg 27.0 - 31.0 02/27/2016 [facility] MCV 83.3 fL 80.0 - 98.0 02/27/2016 [facility] Hct 40.7 % 36.0 - 48.0 02/27/2016 [facility] RDW 15.1 % 11.5 - 14.5 02/27/2016 [facility] WBC 5.0 K/CMM 3.7 - 10.4 02/27/2016 [facility] RBC 4.89 M/CMM 4.20 - 5.40 02/27/2016 [facility] Basophils 1.0 % 0.0 - 1.0 02/27/2016 [facility] Eosinophils 1.2 % 0.0 - 4.0 02/27/2016 [facility] Lymphocytes # 1.2 K/CMM 1.0 - 5.5 02/27/2016 [facility] Segs-Bands # 3.3 K/CMM 1.5 - 8.1 02/27/2016 [facility] Monocytes # 0.4 K/CMM 0.0 - 0.8 02/27/2016 [facility] Eosinophils # 0.1 K/CMM 0.0 - 0.5 02/27/2016 [facility] Segs 66.5 % 45.0 - 75.0 02/27/2016 [facility] Monocytes 7.7 % 2.0 - 12.0 02/27/2016 [facility] Lymphocytes 23.6 % 20.0 - 40.0 02/27/2016 [facility] CHEM PANEL eGFR 92 mL/min/1.73m2 05/11/2015 Result Comment: The eGFR is calculated using the [...] from the National Kidney Disease Education Program (NKDEP) which additionally recommends that when the eGFR is used in patients with extremes of body mass index for purposes of drug dosing, the eGFR should be multiplied by the estimated BMI. [facility] CHEM PANEL CO2 28 meq/L 24 - 32 05/11/2015 [facility] CHEM PANEL Creatinine Lvl 0.7 mg/dL 0.5 - 1.4 05/11/2015 [facility] CHEM PANEL AGAP 10.0 meq/L 10.0 - 20.0 05/11/2015 [facility] CHEM PANEL BUN 23 mg/dL 7 - 22 05/11/2015 [facility] CHEM PANEL Glucose Lvl 113 mg/dL 70 - 99 05/11/2015 [facility] CHEM PANEL Calcium Lvl 8.3 mg/dL 8.5 - 10.5 05/11/2015 [facility] CHEM PANEL Chloride Lvl 109 meq/L 95 - 109 05/11/2015 [facility] CHEM PANEL Potassium Lvl 4.0 meq/L 3.5 - 5.1 05/11/2015 [facility] CHEM PANEL Sodium Lvl 143 meq/L 135 - 145 05/11/2015 [facility] HEMATOLOGY Lymphocytes 30.8 % 20.0 - 40.0 05/11/2015 [facility] HEMATOLOGY Segs 57.4 % 45.0 - 75.0 05/11/2015 [facility] Segs-Bands # 2.8 K/CMM 1.5 - 8.1 05/11/2015 [facility] Lymphocytes # 1.5 K/CMM 1.0 - 5.5 05/11/2015 [facility] Monocytes 8.5 % 2.0 - 12.0 05/11/2015 [facility] HEMATOLOGY Eosinophils 2.7 % 0.0 - 4.0 05/11/2015 [facility] HEMATOLOGY Basophils 0.6 % 0.0 - 1.0 05/11/2015 [facility] HEMATOLOGY Monocytes # 0.4 K/CMM 0.0 - 0.8 05/11/2015 [facility] HEMATOLOGY Eosinophils # 0.1 K/CMM 0.0 - 0.5 05/11/2015 [facility] Platelet 208 K/CMM 133 - 450 05/11/2015 [facility] MCH 28.7 pg 27.0 - 31.0 05/11/2015 [facility] RDW 16.0 % 11.5 - 14.5 05/11/2015 [facility] MCV 82.9 fL 80.0 - 98.0 05/11/2015 [facility] MCHC 34.7 g/dL 32.0 - 36.0 05/11/2015 [facility] HEMATOLOGY MPV 9.5 fL 7.4 - 10.4 05/11/2015 [facility] Hct 34.5 % 36.0 - 48.0 05/11/2015 [facility] WBC 4.9 K/CMM 3.7 - 10.4 05/11/2015 [facility] Hgb 12.0 g/dL 12.0 - 16.0 05/11/2015 [facility] RBC 4.16 M/CMM 4.20 - 5.40 05/11/2015 [facility] CHEM PANEL Phosphorus 4.3 mg/dL 2.5 - 4.5 05/11/2015 [facility] CHEM PANEL Magnesium Lvl 1.7 mg/dL 1.8 - 2.4 05/11/2015 [facility] CARDIAC ENZYMES Troponin-I null 0.00 - 0.40 05/10/2015 [facility] CARDIAC ENZYMES Total CK 65 unit/L 12 - 191 05/10/2015 [facility] CARDIAC ENZYMES CK MB 1.6 ng/mL 0.5 - 3.6 05/10/2015 [facility] CARDIAC ENZYMES BNP 63 pg/mL <=100 pg/mL 05/10/2015 [facility] CARDIAC ENZYMES CK MB Index 2.5 0.0 - 2.5 05/10/2015 [facility] CHEM PANEL eGFR 68 mL/min/1.73m2 05/10/2015 Result Comment: The eGFR is calculated using the [...] from the National Kid[employer] Disease Education Program (NKDEP) which additionally recommends that when the eGFR is used in patients with extremes of body mass index for purposes of drug dosing, the eGFR should be multiplied by the estimated BMI. [facility] CHEM PANEL Globulin 3.7 g/dL 2.0 - 4.0 05/10/2015 [facility] CHEM PANEL B/C Ratio 31 6 - 25 05/10/2015 [facility] CHEM PANEL A/G Ratio 1.1 0.7 - 1.6 05/10/2015 [facility] CHEM PANEL AGAP 13.6 meq/L 10.0 - 20.0 05/10/2015 [facility] CHEM PANEL Total Protein 7.6 g/dL 6.4 - 8.4 05/10/2015 [facility] CHEM PANEL Albumin Lvl 3.9 g/dL 3.5 - 5.0 05/10/2015 [facility] CHEM PANEL Creatinine Lvl 0.9 mg/dL 0.5 - 1.4 05/10/2015 [facility] CHEM PANEL CO2 24 meq/L 24 - 32 05/10/2015 [facility] CHEM PANEL Alk Phos 159 unit/L 39 - 136 05/10/2015 [facility] CHEM PANEL Bili Total 0.4 mg/dL 0.2 - 1.3 05/10/2015 [facility] CHEM PANEL ALT 33 unit/L 0 - 65 05/10/2015 [facility] CHEM PANEL AST 21 unit/L 0 - 37 05/10/2015 [facility] CHEM PANEL BUN 28 mg/dL 7 - 22 05/10/2015 [facility] CHEM PANEL Glucose Lvl 191 mg/dL 70 - 99 05/10/2015 [facility] CHEM PANEL Chloride Lvl 107 meq/L 95 - 109 05/10/2015 [facility] CHEM PANEL Potassium Lvl 3.6 meq/L 3.5 - 5.1 05/10/2015 [facility] CHEM PANEL Calcium Lvl 8.8 mg/dL 8.5 - 10.5 05/10/2015 [facility] CHEM PANEL Sodium Lvl 141 meq/L 135 - 145 05/10/2015 [facility] HEMATOLOGY PT 13.7 s 12.0 - 14.7 05/10/2015 [facility] HEMATOLOGY PTT 32.5 s 22.9 - 35.8 05/10/2015 [facility] HEMATOLOGY INR 1.02 0.85 - 1.17 05/10/2015 [facility] HEMATOLOGY Platelet 291 K/CMM 133 - 450 05/10/2015 [facility] HEMATOLOGY RDW 16.1 % 11.5 - 14.5 05/10/2015 [facility] HEMATOLOGY MPV 9.6 fL 7.4 - 10.4 05/10/2015 [facility] HEMATOLOGY MCHC 34.3 g/dL 32.0 - 36.0 05/10/2015 [facility] HEMATOLOGY MCH 28.6 pg 27.0 - 31.0 05/10/2015 [facility] MCV 83.6 fL 80.0 - 98.0 05/10/2015 [facility] Hct 40.5 % 36.0 - 48.0 05/10/2015 [facility] Hgb 13.9 g/dL 12.0 - 16.0 05/10/2015 [facility] RBC 4.84 M/CMM 4.20 - 5.40 05/10/2015 [facility] WBC 6.9 K/CMM 3.7 - 10.4 05/10/2015 [facility] HEMATOLOGY Segs 65.0 % 45.0 - 75.0 05/10/2015 [facility] Lymphocytes 25.5 % 20.0 - 40.0 05/10/2015 [facility] Monocytes 5.9 % 2.0 - 12.0 05/10/2015 [facility] Eosinophils # 0.2 K/CMM 0.0 - 0.5 05/10/2015 [facility] Monocytes # 0.4 K/CMM 0.0 - 0.8 05/10/2015 [facility] Basophils 0.8 % 0.0 - 1.0 05/10/2015 [facility] Basophils # 0.1 K/CMM 0.0 - 0.2 05/10/2015 [facility] Segs-Bands # 4.5 K/CMM 1.5 - 8.1 05/10/2015 [facility] Eosinophils 2.8 % 0.0 - 4.0 05/10/2015 [facility] Lymphocytes # 1.8 K/CMM 1.0 - 5.5 05/10/2015 [facility] Chest 1view DX Chest 1view DX Portable chest: The patient is rotated to the right. I could not rule out mass in the right hilar region with volume loss in the right lung. The lungs and pleural spaces are otherwise clear. The cardiac silhouette is normal in size. The aorta is tortuous. Scoliosis in the thoracic spine is noted. SL:13 05/10/2015 - - Read by: Adan Calvert MD Dictated Date/time: 05/10/15 16:18 Electronically Signed by: Adan Calvert MD 05/10/15 16:20 FINAL REPORT [facility] ELECTROLYTES AGAP 11.1 meq/L 10.0 - 20.0 01/08/2015 [facility] ELECTROLYTES Calcium Lvl 8.8 mg/dL 8.5 - 10.5 01/08/2015 [facility] ELECTROLYTES B/C Ratio 21 6 - 25 01/08/2015 [facility] ELECTROLYTES Alk Phos 139 unit/L 39 - 136 01/08/2015 [facility] ELECTROLYTES Bili Total 0.5 mg/dL 0.2 - 1.3 01/08/2015 [facility] ELECTROLYTES eGFR 92 mL/min/1.73m2 01/08/2015 1Result Comment: The eGFR is calculated using [...] from the National Kidney Disease Education Program (NKDEP) which additionally recommends that when the eGFR is used in patients with extremes of body mass index for purposes of drug dosing, the eGFR should be multiplied by the estimated BMI. [facility] ELECTROLYTES Total Protein 6.7 g/dL 6.4 - 8.4 01/08/2015 [facility] ELECTROLYTES Albumin Lvl 3.0 g/dL 3.5 - 5.0 01/08/2015 [facility] ELECTROLYTES A/G Ratio 0.8 0.7 - 1.6 01/08/2015 [facility] ELECTROLYTES Globulin 3.7 g/dL 2.0 - 4.0 01/08/2015 [facility] ELECTROLYTES AST 21 unit/L 0 - 37 01/08/2015 [facility] ELECTROLYTES ALT 33 unit/L 0 - 65 01/08/2015 [facility] ELECTROLYTES Glucose Lvl 135 mg/dL 70 - 99 01/08/2015 3Interpretive Data: Adult reference range values reflect the clinical guidelines of the [place] [employer]. [facility] ELECTROLYTES CO2 26 meq/L 24 - 32 01/08/2015 [facility] ELECTROLYTES BUN 15 mg/dL 7 - 22 01/08/2015 [facility] ELECTROLYTES Creatinine Lvl 0.7 mg/dL 0.5 - 1.4 01/08/2015 [facility] ELECTROLYTES Chloride Lvl 105 meq/L 95 - 109 01/08/2015 [facility] ELECTROLYTES Sodium Lvl 138 meq/L 135 - 145 01/08/2015 [facility] ELECTROLYTES Potassium Lvl 4.1 meq/L 3.5 - 5.1 01/08/2015 [facility] HEMATOLOGY Lymphocytes # 0.6 K/CMM 1.0 - 5.5 01/08/2015 [facility] HEMATOLOGY Segs-Bands # 4.3 K/CMM 1.5 - 8.1 01/08/2015 [facility] HEMATOLOGY Basophils 0.2 % 0.0 - 1.0 01/08/2015 [facility] HEMATOLOGY Monocytes # 0.2 K/CMM 0.0 - 0.8 01/08/2015 [facility] HEMATOLOGY Monocytes 3.0 % 2.0 - 12.0 01/08/2015 [facility] HEMATOLOGY Segs 85.2 % 45.0 - 75.0 01/08/2015 [facility] HEMATOLOGY Lymphocytes 11.6 % 20.0 - 40.0 01/08/2015 [facility] HEMATOLOGY Hgb 12.2 g/dL 12.0 - 16.0 01/08/2015 [facility] HEMATOLOGY Hct 35.8 % 36.0 - 48.0 01/08/2015 [facility] HEMATOLOGY MCV 83.2 fL 80.0 - 98.0 01/08/2015 [facility] HEMATOLOGY Platelet 228 K/CMM 133 - 450 01/08/2015 [facility] HEMATOLOGY MPV 10.2 fL 7.4 - 10.4 01/08/2015 [facility] HEMATOLOGY RDW 15.7 % 11.5 - 14.5 01/08/2015 [facility] MCH 28.4 pg 27.0 - 31.0 01/08/2015 [facility] MCHC 34.1 g/dL 32.0 - 36.0 01/08/2015 [facility] HEMATOLOGY WBC 5.1 K/CMM 3.7 - 10.4 01/08/2015 [facility] HEMATOLOGY RBC 4.31 M/CMM 4.20 - 5.40 01/08/2015 [facility] BODY FLUIDS Supernat BF Yellow *ABN* (01/07/15 12:56 PM) Colorless 01/07/2015 [facility] BODY FLUIDS Clarity BF Moderate Cloudy *ABN* (01/07/15 12:56 PM) Clear 01/07/2015 [facility] BODY FLUIDS Color BF Yellow (01/07/15 12:56 PM) Colorless 01/07/2015 [facility] BODY FLUIDS CellCnt BF Type Synovial (4/26/15 12:56 PM) 01/07/2015 [facility] BODY FLUIDS Macrophage BF 5 % 01/07/2015 [facility] BODY FLUIDS Eos BF 0 % 01/07/2015 [facility] BODY FLUIDS Segs BF 95 % 01/07/2015 7Interpretive Data: No established reference ranges. [facility] BODY FLUIDS Lymph BF 2 % 01/07/2015 [facility] [place] [id number] /mm3 01/07/2015 6Interpretive Data: No established reference ranges. [facility] BODY FLUIDS RBC BF 5800 /mm3 01/07/2015 5Interpretive Data: No established reference ranges. [facility] CHEM PANEL eGFR 92 mL/min/1.73m2 01/07/2015 2Result Comment: The eGFR is calculated using [...] from the National Kidney Disease Education Program (NKDEP) which additionally recommends that when the eGFR is used in patients with extremes of body mass index for purposes of drug dosing, the eGFR should be multiplied by the estimated BMI. [facility] CHEM PANEL Creatinine Lvl 0.7 mg/dL 0.5 - 1.4 01/07/2015 [facility] CHEM PANEL Chloride Lvl 104 meq/L 95 - 109 01/07/2015 [facility] CHEM PANEL Potassium Lvl 3.9 meq/L 3.5 - 5.1 01/07/2015 [facility] CHEM PANEL CO2 27 meq/L 24 - 32 01/07/2015 [facility] CHEM PANEL Sodium Lvl 138 meq/L 135 - 145 01/07/2015 [facility] CHEM PANEL BUN 14 mg/dL 7 - 22 01/07/2015 [facility] CHEM PANEL Glucose Lvl 95 mg/dL 70 - 99 01/07/2015 4Interpretive Data: Adult reference range values reflect the clinical guidelines of the [place] [employer]. [facility] CHEM PANEL Albumin Lvl 3.4 g/dL 3.5 - 5.0 01/07/2015 [facility] CHEM PANEL Calcium Lvl 8.3 mg/dL 8.5 - 10.5 01/07/2015 [facility] CHEM PANEL Alk Phos 139 unit/L 39 - 136 01/07/2015 [facility] CHEM PANEL AST 23 unit/L 0 - 37 01/07/2015 [facility] CHEM PANEL ALT 30 unit/L 0 - 65 01/07/2015 [facility] CHEM PANEL Bili Total 0.8 mg/dL 0.2 - 1.3 01/07/2015 [facility] CHEM PANEL Total Protein 7.0 g/dL 6.4 - 8.4 01/07/2015 [facility] CHEM PANEL B/C Ratio 20 6 - 25 01/07/2015 [facility] CHEM PANEL AGAP 10.9 meq/L 10.0 - 20.0 01/07/2015 [facility] CHEM PANEL A/G Ratio 0.9 0.7 - 1.6 01/07/2015 [facility] CHEM PANEL Globulin 3.6 g/dL 2.0 - 4.0 01/07/2015 [facility] CHEM PANEL Lactic Acid Lvl 1.0 mMol/L 0.5 - 2.2 01/07/2015 [facility] HEMATOLOGY Sed Rate 40 mm/h 0 - 20 01/07/2015 [facility] HEMATOLOGY WBC 6.9 K/CMM 3.7 - 10.4 01/07/2015 [facility] HEMATOLOGY RBC 4.21 M/CMM 4.20 - 5.40 01/07/2015 [facility] HEMATOLOGY Hgb 11.9 g/dL 12.0 - 16.0 01/07/2015 [facility] MCHC 34.0 g/dL 32.0 - 36.0 01/07/2015 [facility] RDW 16.0 % 11.5 - 14.5 01/07/2015 [facility] MCH 28.2 pg 27.0 - 31.0 01/07/2015 [facility] HEMATOLOGY MCV 82.8 fL 80.0 - 98.0 01/07/2015 [facility] HEMATOLOGY Hct 34.9 % 36.0 - 48.0 01/07/2015 [facility] HEMATOLOGY MPV 9.5 fL 7.4 - 10.4 01/07/2015 [facility] Platelet 216 K/CMM 133 - 450 01/07/2015 [facility] Lymphocytes # 1.0 K/CMM 1.0 - 5.5 01/07/2015 [facility] HEMATOLOGY Monocytes # 0.7 K/CMM 0.0 - 0.8 01/07/2015 [facility] HEMATOLOGY Segs-Bands # 5.2 K/CMM 1.5 - 8.1 01/07/2015 [facility] HEMATOLOGY Monocytes 10.2 % 2.0 - 12.0 01/07/2015 [facility] HEMATOLOGY Basophils 0.4 % 0.0 - 1.0 01/07/2015 [facility] HEMATOLOGY Segs 75.2 % 45.0 - 75.0 01/07/2015 [facility] HEMATOLOGY Lymphocytes 14.2 % 20.0 - 40.0 01/07/2015 [facility] IMMUNOLOGY [place]-Hep C Ab Negative *NA* (01/07/15 12:56 PM) Negative 01/07/2015 [facility] BODY FLUIDS Crystal BF Type Synovial (01/07/15 12:24 PM) 01/07/2015 [facility] BODY FLUIDS Crystal BF Negative (01/07/15 12:24 PM) Negative 01/07/2015 [facility] Elbow 3 views DX Elbow 3 views DX EXAM: Left elbow. HISTORY: Arthritis left elbow. COMPARISON: None. TECHNIQUE: 3 views left elbow. FINDINGS: Soft tissue swelling and joint effusion of the elbow may reflect a cellulitis or olecranon bursitis. Degenerative change of the olecranon and medial femoral condyle. No definite fracture is seen. SL: 14 01/07/2015 - - Read by: Jaime Mathis MD Dictated Date/time: 01/07/15 12:07 Electronically Signed by: Jaime Mathis MD 01/07/15 12:11 FINAL REPORT [facility] Vital Signs Vital Sign Value Date Comments Source BMI Calculated 22.55 10/01/2017 [facility] Weight 61.477 10/01/2017 [facility] Height 165.1 cm 10/01/2017 [facility] Temperature Oral (F) 97.7 F 10/01/2017 [facility] Heart Rate 69 10/01/2017 [facility] Systolic (mm Hg) 119 10/01/2017 [facility] Diastolic (mm Hg) 78 10/01/2017 [facility] Weight 61.5 10/01/2017 [facility] BMI Calculated 22.56 10/01/2017 [facility] Height 165.1 cm 10/01/2017 [facility] Heart Rate 64 08/14/2017 [facility] Temperature Oral (F) 98.3 F 08/14/2017 [facility] Respitory Rate 18 08/14/2017 [facility] Systolic (mm Hg) 146 08/14/2017 [facility] Diastolic (mm Hg) 90 08/14/2017 [facility] Respitory Rate 18 07/22/2017 [facility] Heart Rate 73 07/22/2017 [facility] Temperature Oral (F) 98.2 F 07/22/2017 [facility] Systolic (mm Hg) 127 07/22/2017 [facility] Diastolic (mm Hg) 87 07/22/2017 [facility] BMI Calculated 22.66 07/22/2017 [facility] Height 165.1 cm 07/22/2017 [facility] Weight 61.773 07/22/2017 [facility] Temperature Oral (F) 98.0 F 07/02/2017 [facility] Respitory Rate 18 07/02/2017 [facility] Systolic (mm Hg) 118 07/02/2017 [facility] Diastolic (mm Hg) 81 07/02/2017 [facility] Heart Rate 70 07/02/2017 [facility] Systolic (mm Hg) 131 06/11/2017 [facility] Diastolic (mm Hg) 80 06/11/2017 [facility] Heart Rate 61 06/11/2017 [facility] Respitory Rate 18 06/11/2017 [facility] Temperature Oral (F) 98.1 F 06/11/2017 [facility] Height 165.1 cm 06/10/2017 [facility] BMI Calculated 22.58 06/10/2017 [facility] Weight 61.545 06/10/2017 [facility] Weight 61.3 04/17/2017 [facility] Height 165.1 cm 04/17/2017 [facility] BMI Calculated 22.49 04/17/2017 [facility] Respitory Rate 18 03/26/2017 [facility] Temperature Oral (F) 98.3 F 03/26/2017 [facility] Systolic (mm Hg) 130 03/26/2017 [facility] Diastolic (mm Hg) 85 03/26/2017 [facility] Heart Rate 62 03/26/2017 [facility] Heart Rate 55 03/05/2017 [facility] Systolic (mm Hg) 139 03/05/2017 [facility] Diastolic (mm Hg) 81 03/05/2017 [facility] Respitory Rate 18 03/05/2017 [facility] Temperature Oral (F) 98.1 F 03/05/2017 [facility] Height 165.1 cm 03/04/2017 [facility] BMI Calculated 22.49 03/04/2017 [facility] Weight 61.3 03/04/2017 [facility] Systolic (mm Hg) 149 01/18/2017 [facility] Diastolic (mm Hg) 94 01/18/2017 [facility] Heart Rate 64 01/18/2017 [facility] Respitory Rate 18 01/18/2017 [facility] Temperature Oral (F) 98.9 F 01/18/2017 [facility] Respitory Rate 15 01/18/2017 [facility] Weight 61.818 01/18/2017 [facility] Height 165.1 cm 01/18/2017 [facility] BMI Calculated 22.68 01/18/2017 [facility] Systolic (mm Hg) 159 01/18/2017 [facility] Diastolic (mm Hg) 93 01/18/2017 [facility] Heart Rate 78 01/18/2017 [facility] BMI Calculated 22.49 01/14/2017 [facility] Height 165.1 cm 01/14/2017 [facility] Weight 61.3 01/14/2017 [facility] Temperature Oral (F) 98.1 F 12/25/2016 [facility] Systolic (mm Hg) 133 12/25/2016 [facility] Diastolic (mm Hg) 77 12/25/2016 [facility] Heart Rate 65 12/25/2016 [facility] Respitory Rate 18 12/25/2016 [facility] Temperature Oral (F) 98.1 F 12/04/2016 [facility] Respitory Rate 18 12/04/2016 [facility] Systolic (mm Hg) 154 12/04/2016 [facility] Diastolic (mm Hg) 85 12/04/2016 [facility] Heart Rate 58 12/04/2016 [facility] Temperature Oral (F) 98 F 10/24/2016 [facility] Respitory Rate 20 10/24/2016 [facility] Heart Rate 78 10/24/2016 [facility] Systolic (mm Hg) 124 10/24/2016 [facility] Diastolic (mm Hg) 72 10/24/2016 [facility] Weight 61.3 10/24/2016 [facility] BMI Calculated 22.49 10/24/2016 [facility] Height 165.1 cm 10/24/2016 [facility] Systolic (mm Hg) 149 10/02/2016 [facility] Diastolic (mm Hg) 81 10/02/2016 [facility] Temperature Oral (F) 97.7 F 10/02/2016 [facility] Respitory Rate 18 10/02/2016 [facility] Heart Rate 60 10/02/2016 [facility] Systolic (mm Hg) 148 08/22/2016 [facility] Diastolic (mm Hg) 78 08/22/2016 [facility] Respitory Rate 18 08/22/2016 [facility] Heart Rate 78 08/22/2016 [facility] Temperature Oral (F) 98.2 F 08/22/2016 [facility] Weight 61.3 08/13/2016 [facility] BMI Calculated 22.49 08/13/2016 [facility] Height 165.1 cm 08/13/2016 [facility] Systolic (mm Hg) 154 07/31/2016 [facility] Diastolic (mm Hg) 87 07/31/2016 [facility] Heart Rate 68 07/31/2016 [facility] Temperature Oral (F) 98 F 07/31/2016 [facility] Respitory Rate 18 07/31/2016 [facility] Heart Rate 78 07/10/2016 [facility] Respitory Rate 18 07/10/2016 [facility] Systolic (mm Hg) 110 07/10/2016 [facility] Diastolic (mm Hg) 78 07/10/2016 [facility] Temperature Oral (F) 98.2 F 07/10/2016 [facility] Systolic (mm Hg) 123 06/19/2016 [facility] Diastolic (mm Hg) 79 06/19/2016 [facility] Respitory Rate 18 06/19/2016 [facility] Heart Rate 57 06/19/2016 [facility] Temperature Oral (F) 98.1 F 06/19/2016 [facility] Heart Rate 51 05/30/2016 [facility] Systolic (mm Hg) 127 05/30/2016 [facility] Diastolic (mm Hg) 80 05/30/2016 [facility] Respitory Rate 18 05/30/2016 [facility] Temperature Oral (F) 97.7 F 05/30/2016 [facility] BMI Calculated 20.7 05/28/2016 [facility] Weight 53 05/28/2016 [facility] Height 160.02 cm 05/28/2016 [facility] Respitory Rate 19 05/16/2016 [facility] Temperature Oral (F) 98.1 F 05/16/2016 [facility] Respitory Rate 21 05/16/2016 [facility] Systolic (mm Hg) 102 05/16/2016 [facility] Diastolic (mm Hg) 88 05/16/2016 [facility] Respitory Rate 24 05/16/2016 [facility] Temperature Oral (F) 98.3 F 05/16/2016 [facility] Systolic (mm Hg) 101 05/16/2016 [facility] Diastolic (mm Hg) 71 05/16/2016 [facility] Systolic (mm Hg) 87 05/16/2016 [facility] Diastolic (mm Hg) 61 05/16/2016 [facility] Temperature Oral (F) 98.7 F 05/16/2016 [facility] Weight 61.364 05/13/2016 [facility] Weight 61.818 05/13/2016 [facility] Height 165.1 cm 05/13/2016 [facility] BMI Calculated 22.68 05/13/2016 [facility] Heart Rate 178 05/13/2016 [facility] Heart Rate 79 05/08/2016 [facility] Temperature Oral (F) 98.3 F 05/08/2016 [facility] Respitory Rate 16 05/08/2016 [facility] Systolic (mm Hg) 120 05/08/2016 [facility] Diastolic (mm Hg) 83 05/08/2016 [facility] Systolic (mm Hg) 124 04/15/2016 [facility] Diastolic (mm Hg) 87 04/15/2016 [facility] Respitory Rate 16 04/15/2016 [facility] Heart Rate 68 04/15/2016 [facility] Temperature Oral (F) 98.0 F 04/15/2016 [facility] Systolic (mm Hg) 116 04/15/2016 [facility] Diastolic (mm Hg) 79 04/15/2016 [facility] Respitory Rate 18 04/15/2016 [facility] Heart Rate 63 04/15/2016 [facility] Temperature Oral (F) 97.7 F 04/15/2016 [facility] Heart Rate 62 04/15/2016 [facility] Systolic (mm Hg) 113 04/15/2016 [facility] Diastolic (mm Hg) 76 04/15/2016 [facility] Respitory Rate 18 04/15/2016 [facility] Temperature Oral (F) 97.9 F 04/15/2016 [facility] BMI Calculated 22.51 04/14/2016 [facility] Weight 61.364 04/14/2016 [facility] Height 165.1 cm 04/14/2016 [facility] BMI Calculated 22.51 04/13/2016 [facility] Height 165.1 cm 04/13/2016 [facility] Weight 61.364 04/13/2016 [facility] BMI Calculated 22.49 03/31/2016 [facility] Weight 61.3 03/31/2016 [facility] Height 165.1 cm 03/31/2016 [facility] Heart Rate 69 11/22/2015 [facility] Respitory Rate 18 11/22/2015 [facility] Temperature Oral (F) 97.9 F 11/22/2015 [facility] Systolic (mm Hg) 121 11/22/2015 [facility] Diastolic (mm Hg) 71 11/22/2015 [facility] Weight 61.2 10/30/2015 [facility] BMI Calculated 22.45 10/30/2015 [facility] Height 165.1 cm 10/30/2015 [facility] BMI Calculated 22.49 09/17/2015 [facility] Weight 61.3 09/17/2015 [facility] Height 165.1 cm 09/17/2015 [facility] Weight 61.36 08/06/2015 [facility] BMI Calculated 22.51 08/06/2015 [facility] Height 165.1 cm 08/06/2015 [facility] Systolic (mm Hg) 101 05/11/2015 [facility] Diastolic (mm Hg) 56 05/11/2015 [facility] Respitory Rate 20 05/11/2015 [facility] Heart Rate 64 05/11/2015 [facility] Temperature Oral (F) 97.5 F 05/11/2015 [facility] Heart Rate 60 05/11/2015 [facility] Respitory Rate 19 05/11/2015 [facility] Temperature Oral (F) 98.3 F 05/11/2015 [facility] Systolic (mm Hg) 144 05/11/2015 [facility] Diastolic (mm Hg) 82 05/11/2015 [facility] Weight 61.364 05/11/2015 [facility] Respitory Rate 18 05/11/2015 [facility] Heart Rate 55 05/11/2015 [facility] Systolic (mm Hg) 125 05/11/2015 [facility] Diastolic (mm Hg) 81 05/11/2015 [facility] Temperature Oral (F) 98 F 05/11/2015 [facility] Height 165.1 cm 05/10/2015 [facility] BMI Calculated 22.51 05/10/2015 [facility] Weight 61.364 05/10/2015 [facility] Weight 69.3 04/02/2015 [facility] Height 165.1 cm 04/02/2015 [facility] BMI Calculated 25.42 04/02/2015 [facility] Respitory Rate 18 01/09/2015 [facility] Heart Rate 60 01/09/2015 [facility] Systolic (mm Hg) 115 01/09/2015 [facility] Diastolic (mm Hg) 72 01/09/2015 [facility] Temperature Oral (F) 97.8 F 01/09/2015 [facility] Systolic (mm Hg) 112 01/09/2015 [facility] Diastolic (mm Hg) 72 01/09/2015 [facility] Respitory Rate 18 01/09/2015 [facility] Temperature Oral (F) 98.2 F 01/09/2015 [facility] Heart Rate 63 01/09/2015 [facility] Systolic (mm Hg) 103 01/09/2015 [facility] Diastolic (mm Hg) 64 01/09/2015 [facility] Respitory Rate 18 01/09/2015 [facility] Temperature Oral (F) 98.3 F 01/09/2015 [facility] Heart Rate 73 01/09/2015 [facility] Height 165.1 cm 01/08/2015 [facility] BMI Calculated 22.51 01/08/2015 [facility] Weight 61.364 01/08/2015 [facility] Weight 61.364 01/07/2015 [facility] Height 165.1 cm 01/07/2015 [facility] BMI Calculated 22.51 01/07/2015 [facility] Encounters Location Location Details Encounter Type Encounter Number Reason For Visit Attending Provider ADM Date DC Date Status Source [facility] Outpatient [id number] BORA BLANDON 08/12/2011 Active [facility] Inpatient [id number] Td Ascencio 01/07/2015 01/09/2015 [facility] OP Recurring [id number] Tannaz Armaghany 02/13/2015 03/15/2015 [facility] OP Recurring [id number] Tannaz Armaghany 04/02/2015 05/02/2015 [facility] OBS Observation Patient [id number] Santana Trent 05/10/2015 05/11/2015 [facility] [facility] [id number] Tannaz Armaghany 05/14/2015 06/13/2015 [facility] OP Recurring [id number] Tannaz Armaghany 06/25/2015 07/25/2015 [facility] OP Recurring [id number] Tannaz Armaghany 08/06/2015 09/05/2015 [facility] OP Recurring [id number] Tannaz Armaghany 09/17/2015 10/17/2015 [facility] OP Recurring [id number] Tannaz Armaghany 10/30/2015 11/29/2015 [facility] OP Recurring [id number] Tannaz Armaghany 12/12/2015 01/11/2016 [facility] OP Recurring [id number] Tannaz Armaghany 01/24/2016 02/23/2016 [facility] Outpatient [id number] Tannaz Armaghany 02/27/2016 02/28/2016 [facility] Outpatient [id number] Tannaz Armaghany 03/03/2016 03/04/2016 [facility] OP Recurring [id number] Tannaz Armaghany 03/06/2016 04/05/2016 [facility] OBS Observation Patient [id number] Luke Mcbride 04/13/2016 04/15/2016 [facility] Recurring [id number] Tannaz Armaghany 04/17/2016 05/17/2016 [facility] Inpatient [id number] Graeme Brower 05/13/2016 05/16/2016 [facility] Recurring [id number] Tannaz Armaghany 05/30/2016 06/29/2016 [facility] Recurring [id number] Tannaz Armaghany 07/10/2016 08/09/2016 [facility] Recurring [id number] Tannaz Armaghany 08/22/2016 09/21/2016 [facility] Recurring [id number] Tannaz Armaghany 10/24/2016 11/23/2016 [facility] Recurring [id number] Tannaz Armaghany 12/04/2016 01/03/2017 [facility] Recurring [id number] Tannaz Armaghany 01/15/2017 02/14/2017 [facility] Emergency [id number] Jonathan Barth 01/18/2017 01/18/2017 [facility] Recurring [id number] Tannaz Armaghany 03/05/2017 04/04/2017 [facility] Recurring [id number] Tannaz Armaghany 04/21/2017 05/21/2017 [facility] Recurring [id number] Tannaz Armaghany 06/11/2017 07/11/2017 [facility] Recurring [id number] Tannaz Armaghany 07/22/2017 08/21/2017 [facility] Recurring [id number] Tannaz Armaghany 09/09/2017 10/09/2017 [facility] Outpatient [id number] Bora Blandon 02/03/2019 02/04/2019 [facility] Procedures Procedure Code Date Perfomer Comments Source Abdominal hysterectomy [id number] [facility] Arthroscopic surgical procedure on knee [id number] [facility] Liver lobectomy<sup>1</sup> [id number] Rt lobe 2010 [facility] Lobectomy of lung<sup>2</sup> [id number] Rt lower 2 lobes 1197 [facility] Suspension of bladder [id number] [facility]
--- OUTSIDE RECORDS SUMMARY | 2019-03-03 16:32 | XMS REPORT | Summary of Care ---
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) HTN Active (hypertension)(Confi rmed) Liver Resolved cancer(Confirmed) 2009 with mets to liver and bilateral lungs Allergies, Adverse Reactions, Alerts Substance Reaction Severity Status aspirin lips swell Active itching doxycycline hives Active Levaquin hives Active morphine hives Active nightmares penicillins itching Active lip swelling streptomycin lips swell Active itching sulfa drugs nausea Active Medications SandoSTATIN [place] 10 mg, Route: IM, Drug form: PDR/INJ, ONCALL, Start date: 09/18/15 9:00:00, Dura tion: 12 hr, Stop date: 09/18/15 20:59:00 Notes: Same As: (SandoSTATIN [place])Refrigerated Item Non-Formulary Item Start Date: 09/18/15 Stop Date: 09/18/15 Status: Ordered SandoSTATIN [place] 30 mg, Route: IM, Drug form: INJ, ONCALL, Start date: 09/18/15 9:00:00, Duration : 12 hr, Stop date: 09/18/15 20:59:00 Notes: Non-Formulary Drug. (Same As: SandoSTATIN [place]). Refrigerate. Start Date: 09/18/15 Stop Date: 09/18/15 Status: Ordered SandoSTATIN [place] 30 mg, Route: IM, Drug form: INJ, ONCALL, Start date: 10/08/15 9:00:00, Duration : 12 hr, Stop date: 10/08/15 20:59:00 Notes: Non-Formulary Drug. (Same As: SandoSTATIN [place]). Refrigerate. Start Date: 10/08/15 Stop Date: 10/08/15 Status: Completed SandoSTATIN [place] 10 mg, Route: IM, Drug form: PDR/INJ, ONCALL, Start date: 10/08/15 9:00:00, Dura tion: 12 hr, Stop date: 10/08/15 20:59:00 Notes: Same As: (SandoSTATIN [place])Refrigerated Item Non-Formulary Item Start Date: 10/08/15 Stop Date: 10/08/15 Status: Completed Results No data available for [...]
--- OUTSIDE RECORDS SUMMARY | 2019-03-03 16:32 | XMS REPORT | Summary of Care ---
Author Author [facility] Organization [facility] Address Unknown Phone Unavailable Encounter [facility] [id number] Date(s): 04/13/16 - 04/15/16 [facility] [address] [place] [address]- Discharge Disposition: Home or Self Care Attending Physician: Luke Mcbride MD Admitting Physician: Luke Mcbride MD Vital Signs 1 2 3 Most recent to oldest [Reference Range]: 165.1 cm (04/13/16 11:48 PM) 165.1 cm (04/13/16 6:40 PM) Height 98.0 DegF (04/15/16 8:18 AM) 97.7 DegF (04/15/16 4:12 AM) 97.9 DegF (04/14/16 11:27 PM) Temperature Oral [96.4-99.1 DegF] 124/87 mmHg (04/15/16 8:18 AM) 116/79 mmHg (04/15/16 4:12 AM) 113/76 mmHg (04/14/16 11:27 PM) Blood Pressure [90-140/60-90 mmHg] 16 BRMIN (04/15/16 8:18 AM) 18 BRMIN (04/15/16 4:12 AM) 18 BRMIN (04/14/16 11:27 PM) Respiratory Rate [14-20 BRMIN] 68 bpm (04/15/16 8:18 AM) 63 bpm (04/15/16 4:12 AM) 62 bpm (04/14/16 11:27 PM) Peripheral Pulse Rate [60-100 bpm] 61.364 kg (04/13/16 11:48 PM) 61.364 kg (04/13/16 6:40 PM) Weight 22.51 m2 (04/13/16 11:48 PM) 22.51 m2 (04/13/16 6:40 PM) Body Mass Index Problem List Condition Effective Dates Status Health Status Informant Acid Resolved reflux(Confirmed) Arthritis(Confirmed) Active Cancer, 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) HTN Active (hypertension)(Confi rmed) Liver Resolved cancer(Confirmed) [address], 2010 with mets to liver and bilateral lungs Allergies, Adverse Reactions, Alerts Substance Reaction Severity Status aspirin lips swell Active itching doxycycline hives Active Levaquin hives Active morphine hives Active nightmares penicillins itching Active lip swelling streptomycin lips swell Active itching sulfa drugs nausea Active Medications acetaminophen 325 mg, 1 tab, Route: PO, Drug form: TAB, Q4H, Dosing Weight 61.364, kg, PRN Truman n Score 4-6, Start date: 04/13/16 23:40:00 CDT, Duration: 30 day, Stop date: 23:39:00 CDT Notes: Do not exceed 4 gm/day. (Same as: Tylenol) Start Date: 04/13/16 Stop Date: 04/15/16 Status: Discontinued apixaban 5 mg oral tablet 5 mg=1 tab, PO, Q12H, # 60 tab, 0 Refill(s), Pharmacy: [id number] Start Date: 04/15/16 Stop Date: 05/15/16 Status: Ordered Dexilant 60 mg, Route: PO, Drug form: DRC, Daily, Dosing Weight 61.364, kg, Start date: 0 04/15/16 9:00:00 CDT, Duration: 30 day, Stop date: 05/14/16 9:00:00 CDT Start Date: 04/15/16 Stop Date: 04/14/16 Status: Deleted Eliquis 5 mg, 1 tab, Route: PO, Drug form: TAB, Q12H, Dosing Weight 61.364, kg, Priority : NOW, Start date: 04/14/16 9:17:00 CDT, Duration: 30 day, Stop date: 05/14/16 9 :00:00 CDT Notes: Same as: Eliquis Start Date: 04/14/16 Stop Date: 04/15/16 Status: Discontinued gabapentin 400 mg oral capsule 400 mg, 1 cap, Route: PO, Drug form: CAP, TID, Dosing Weight 61.364, kg, Start d ate: 04/14/16 17:00:00 CDT, Duration: 30 day, Stop date: 05/14/16 13:00:00 CDT Notes: (Same as: Neurontin) Start Date: 04/14/16 Stop Date: 04/15/16 Status: Discontinued lisinopril 20 mg, 1 tab, Route: PO, Drug form: TAB, Daily, Dosing Weight 61.364, kg, Start date: 04/15/16 9:00:00 CDT, Duration: 30 day, Stop date: 05/14/16 9:00:00 CDT Notes: (Same as: ivZenon alanisstril) Start Date: 04/15/16 Stop Date: 04/15/16 Status: Discontinued morphine Sulfate 2 mg, Route: IVP, Q4H, Dosing Weight 61.364, kg, PRN Pain Score 7-10, Start date : 04/13/16 23:40:00 CDT, Duration: 30 day, Stop date: 05/13/16 23:39:00 CDT Start Date: 04/13/16 Stop Date: 04/14/16 Status: Deleted propafenone 150 mg, 1 tab, Route: PO, Drug form: TAB, Q12H, Dosing Weight 61.364, kg, Priori ty: NOW, Start date: 04/14/16 9:16:00 CDT, Duration: 30 day, Stop date: 05/14/16 9:00:00 CDT Notes: (Same as: Khrismoabdulkadir) Start Date: 04/14/16 Stop Date: 04/15/16 Status: Discontinued propafenone 150 mg oral tablet 150 mg=1 tab, PO, Q12H, # 60 tab, 0 Refill(s), Pharmacy: [facility] [id number] 07 Start Date: 04/15/16 Stop Date: 05/15/16 Status: Ordered Protonix 40 mg, 1 tab, Route: PO, Drug form: ECTAB, Before Dinner, Start date: 04/14/16 1 6:30:00 CDT, Duration: 30 day, Stop date: 05/13/16 16:30:00 CDT Notes: Tablet should not be chewed or crushed.(Same as: Protonix) Start Date: 04/14/16 Stop Date: 04/15/16 Status: Discontinued Saline Flush 0.9% 10 mL, Route: IVP, Drug Form: INJ, Dosing Weight 61.3, kg, PRN, PRN Line Flush, Start date: 04/13/16 18:43:00 CDT, Duration: 30 day, Stop date: 05/13/16 18:42:0 0 CDT Notes: (Same as: BD Posiflush) Start Date: 04/13/16 Stop Date: 04/13/16 Status: Discontinued SUMAtriptan 50 mg, 2 tab, Route: PO, Drug form: TAB, Daily, Dosing Weight 61.364, kg, PRN Ot her -See Comment, Start date: 04/14/16 16:03:00 CDT, Duration: 30 day, Stop date : 05/14/16 16:02:00 CDT, MIGRAINE Notes: (Same As: Imitrex) Start Date: 04/14/16 Stop Date: 04/15/16 Status: Discontinued tramadol 50 mg oral tablet 50 mg, 1 tab, Route: PO, Drug form: TAB, Q6H, Dosing Weight 61.364, kg, PRN Pain Score 4-6, Start date: 04/14/16 16:03:00 CDT, Duration: 30 day, Stop date: 04/16 09/29 16:02:00 CDT Notes: Not to exceed 400mg/day. (Same As: Ultram) Start Date: 04/14/16 Stop Date: 04/15/16 Status: Discontinued Xanax 0.25 mg oral tablet 0.25 mg, 1 tab, Route: PO, Drug form: TAB, TID, Dosing Weight 61.364, kg, PRN An xiety, Start date: 04/14/16 16:02:00 CDT, Duration: 30 day, Stop date: 05/14/16 16:01:00 CDT Notes: With food or milk(Same as: Xanax) Start Date: 04/14/16 Stop Date: 04/15/16 Status: Discontinued Results ELECTROLYTES 1 2 3 Most recent to oldest [Reference Range]: 140 mEq/L (04/15/16 5:00 AM) 142 mEq/L (04/13/16 6:58 PM) Sodium Lvl [135-145 mEq/L] 3.9 mEq/L (04/15/16 5:00 AM) 3.5 mEq/L (04/13/16 6:58 PM) Potassium Lvl [3.5-5.1 mEq/L] 107 mEq/L (04/15/16 5:00 AM) 109 mEq/L (04/13/16 6:58 PM) Chloride Lvl [95-109 mEq/L] 26 mEq/L (04/15/16 5:00 AM) 23 mEq/L *LOW* (04/13/16 6:58 PM) CO2 [24-32 mEq/L] 10.9 mEq/L (04/15/16 5:00 AM) 13.5 mEq/L (04/13/16 6:58 PM) AGAP [10.0-20.0 mEq/L] CHEM PANEL 1 2 3 Most recent to oldest [Reference Range]: 0.70 mg/dL (04/15/16 5:00 AM) 0.71 mg/dL (04/13/16 6:58 PM) Creatinine Lvl [0.50-1.40 mg/dL] 91 mL/min/1.73m2 1 *NA* (04/15/16 5:00 AM) 90 mL/min/1.73m2 2 *NA* (04/13/16 6:58 PM) eGFR 15 mg/dL (04/15/16 5:00 AM) 15 mg/dL (04/13/16 6:58 PM) BUN [7-22 mg/dL] 21 (04/15/16 5:00 AM) 21 (04/13/16 6:58 PM) B/C Ratio [6-25] 111 mg/dL *HI* (04/15/16 5:00 AM) 147 mg/dL *HI* (04/13/16 6:58 PM) Glucose Lvl [70-99 mg/dL] 6.5 g/dL (04/15/16 5:00 AM) 6.9 g/dL (04/13/16 6:58 PM) Total Protein [6.4-8.4 g/dL] 3.5 g/dL (04/15/16 5:00 AM) 3.5 g/dL (04/13/16 6:58 PM) Albumin Lvl [3.5-5.0 g/dL] 3.0 g/dL (04/15/16 5:00 AM) 3.4 g/dL (04/13/16 6:58 PM) Globulin [2.0-4.0 g/dL] 1.2 (04/15/16 5:00 AM) 1.0 (04/13/16 6:58 PM) A/G Ratio [0.7-1.6] 8.1 mg/dL *LOW* (04/15/16 5:00 AM) 7.8 mg/dL *LOW* (04/13/16 6:58 PM) Calcium Lvl [8.5-10.5 mg/dL] 2.4 mg/dL (04/15/16 5:00 AM) Magnesium Lvl [1.8-2.4 mg/dL] 27 unit/L (04/15/16 5:00 AM) 31 unit/L (04/13/16 6:58 PM) ALT [0-65 unit/L] 18 unit/L (04/15/16 5:00 AM) 20 unit/L (04/13/16 6:58 PM) AST [0-37 unit/L] 124 unit/L (04/15/16 5:00 AM) 128 unit/L (04/13/16 6:58 PM) Alk Phos [39-136 unit/L] 0.6 mg/dL (04/15/16 5:00 AM) 0.4 mg/dL (04/13/16 6:58 PM) Bili Total [0.2-1.3 mg/dL] 1Result Comment: The eGFR is calculated using [...] be mul tiplied by the estimated BMI. CARDIAC ENZYMES 1 2 3 Most recent to oldest [Reference Range]: 91 unit/L (04/13/16 6:58 PM) Total CK [12-191 unit/L] 1.6 ng/mL (04/13/16 6:58 PM) CK MB [0.5-3.6 ng/mL] 1.8 (04/13/16 6:58 PM) CK MB Index [0.0-2.5] <0.02 ng/mL (04/14/16 11:48 AM) <0.02 ng/mL (04/14/16 5:38 AM) <0.02 ng/mL (04/14/16 12:10 AM) Troponin-I [0.00-0.40 ng/mL] 69 pg/mL (04/13/16 6:58 PM) BNP [<=100 pg/mL] URINE AND STOOL 1 2 3 Most recent to oldest [Reference Range]: Clear (04/14/16 8:37 PM) UA Turbidity [Clear] Ltyellow *NA* (04/14/16 8:37 PM) UA Color 6.0 (04/14/16 8:37 PM) UA pH [5.0-8.0] 1.012 (04/14/16 8:37 PM) UA Spec Grav [<=1.030] Negative mg/dL *NA* (04/14/16 8:37 PM) UA Glucose [Negative mg/dL] Negative (04/14/16 8:37 PM) UA Blood [Negative] Negative mg/dL *NA* (04/14/16 8:37 PM) UA Ketones [Negative mg/dL] Negative mg/dL (04/14/16 8:37 PM) UA Protein [Negative mg/dL] <=1.0 mg/dL *NA* (04/14/16 8:37 PM) UA Urobilinogen [0.1-1.0 mg/dL] Negative *NA* (04/14/16 8:37 PM) UA Bili [Negative] Negative (04/14/16 8:37 PM) UA Leuk Est [Negative] Negative (04/14/16 8:37 PM) UA Nitrite [Negative] <1 /HPF (04/14/16 8:37 PM) UA WBC [0-5 /HPF] None Seen *NA* (04/14/16 8:37 PM) UA Sq Epi Few /LPF *NA* (04/14/16 8:37 PM) UA Mucus [None Seen /LPF] HEMATOLOGY 1 2 3 Most recent to oldest [Reference Range]: 4.8 K/CMM (04/15/16 5:00 AM) 5.4 K/CMM (04/13/16 6:58 PM) WBC [3.7-10.4 K/CMM] 4.71 M/CMM (04/15/16 5:00 AM) 4.78 M/CMM (04/13/16 6:58 PM) RBC [4.20-5.40 M/CMM] 12.9 g/dL (04/15/16 5:00 AM) 13.2 g/dL (04/13/16 6:58 PM) Hgb [12.0-16.0 g/dL] 38.5 % (04/15/16 5:00 AM) 39.2 % (04/13/16 6:58 PM) Hct [36.0-48.0 %] 81.6 fL (04/15/16 5:00 AM) 81.9 fL (04/13/16 6:58 PM) MCV [80.0-98.0 fL] 27.3 pg (04/15/16 5:00 AM) 27.6 pg (04/13/16 6:58 PM) MCH [27.0-31.0 pg] 33.5 g/dL (04/15/16 5:00 AM) 33.8 g/dL (04/13/16 6:58 PM) MCHC [32.0-36.0 g/dL] 15.0 % *HI* (04/15/16 5:00 AM) 15.2 % *HI* (04/13/16 6:58 PM) RDW [11.5-14.5 %] 218 K/CMM (04/15/16 5:00 AM) 277 K/CMM (04/13/16 6:58 PM) Platelet [133-450 K/CMM] 9.2 fL (04/15/16 5:00 AM) 9.4 fL (04/13/16 6:58 PM) MPV [7.4-10.4 fL] 61.3 % (04/15/16 5:00 AM) 59.5 % (04/13/16 6:58 PM) Segs [45.0-75.0 %] 28.9 % (04/15/16 5:00 AM) 30.0 % (04/13/16 6:58 PM) Lymphocytes [20.0-40.0 %] 8.7 % (04/15/16 5:00 AM) 9.1 % (04/13/16 6:58 PM) Monocytes [2.0-12.0 %] 0.5 % (04/15/16 5:00 AM) 0.4 % (04/13/16 6:58 PM) Eosinophils [0.0-4.0 %] 0.6 % (04/15/16 5:00 AM) 1.0 % (04/13/16 6:58 PM) Basophils [0.0-1.0 %] 2.9 K/CMM (04/15/16 5:00 AM) 3.2 K/CMM (04/13/16 6:58 PM) Segs-Bands # [1.5-8.1 K/CMM] 1.4 K/CMM (04/15/16 5:00 AM) 1.6 K/CMM (04/13/16 6:58 PM) Lymphocytes # [1.0-5.5 K/CMM] 0.4 K/CMM (04/15/16 5:00 AM) 0.5 K/CMM (04/13/16 6:58 PM) Monocytes # [0.0-0.8 K/CMM] 0.1 K/CMM (04/13/16 6:58 PM) Basophils # [0.0-0.2 K/CMM] 17.9 seconds *HI* (04/15/16 5:00 AM) PT [12.0-14.7 seconds] 1.44 *HI* (04/15/16 5:00 AM) INR [0.85-1.17] Immunizations No data available for this section [...] Smoking Cessation Counseling No Assessment and Plan Extracted from: Title: Clinical Document Author: Alexandro Rowland MD Date: 04/15/16 Progress Note Cardiology [facility] Impression: Paroxysmal afib, CHADSVasc=3. currently sinus. Echo with normal LVEF htn metastatic carcinoid Plan: Cont propafenone and eliquis Will need to schedule a lexiscan nuclear stress test in the next few days in clinic. She can be discharged from a cardiology perspective with close follow up in clinic. Thank you for this consult. Please call with any questions. Subjective: Patient seen and examined. No cp or sob. Objective: Telemetry no events VitalsTmp(F)[id number] 04/15 08:[id number]--- 04/15 04:1297.297089/772515--- 04/14 23:2797.147070/018503--- 04/14 19:3798.145044/101084--- 04/14 15:4197.869194/86--98--- 24 Hr Tmax: 98.2F (36.78c) at 04/14 19:37Vital Signs are the last 5 in the past 48 hours. General: Awake and alert, NAD HEENT: Neck supple, No JVD CVS: Regular rate, normal S1S2 LUNGS: CTA, no rales or wheezing ABD: Soft, non-tender, +BS EXT: No edema, 2+ pedal pulses Skin: No ulcers Neuro: Awake and alert, Oriented x3 Labs (Last four charted values) WBC 4.8(APR 15)5.4(APR 13) Hgb 12.9(APR 15)13.2(APR 13) Hct 38.5(APR 15)39.2(APR 13) Plt 218(APR 15)277(APR 13) Na 140(APR 15)142(APR 13) K 3.9(APR 15)3.5(APR 13) CO2 26(APR 15)L 23(APR 13) Cl 107(APR 15)109(APR 13) Cr 0.70(APR 15)0.71(APR 13) BUN 15(APR 15)15(APR 13) Glucose Random H 111(APR 15)H 147(APR 13) Mg 2.4(APR 15) Ca L 8.1(APR 15)L 7.8(APR 13) PT H 17.9(APR 15) INR H 1.44(APR 15) Troponin <0.02(APR 14)<0.02(APR 14)<0.02(APR 14)<0.02(APR 13) CK MB 1.6(APR 13) Total CK 91(APR 13) Scheduled Meds (5): 04/14/16 apixaban (Eliquis) 5 mg PO Q12H 04/14/16 gabapentin (gabapentin 400 mg oral capsule) 400 mg PO TID 04/15/16 lisinopril 20 mg PO Daily 04/14/16 pantoprazole (Protonix) 40 mg PO Before Dinner 04/14/16 propafenone 150 mg PO Q12H Continuous Infusions: None
--- OUTSIDE RECORDS SUMMARY | 2019-03-03 16:32 | XMS REPORT | Summary of Care ---
Author Author [facility] Organization [facility] Address Unknown Phone Unavailable Encounter [facility] [id number] Date(s): 02/27/16 - 02/27/16 [facility] [address] [place] [address]- [phone] Discharge Disposition: Home Attending Physician: Demetrio Walsh MD Vital Signs No data [...] Active itching sulfa drugs nausea Active Medications No data available for this section Results ELECTROLYTES Most recent to 1 oldest [Reference Range]: Sodium Lvl [135-145 141 mEq/L mEq/L] (02/27/16 10:42 AM) Potassium Lvl 4.1 mEq/L [3.5-5.1 mEq/L] (02/27/16 10:42 AM) Chloride Lvl [95-109 106 mEq/L mEq/L] (02/27/16 10:42 AM) CO2 [24-32 mEq/L] 26 mEq/L (02/27/16 10:42 AM) AGAP [10.0-20.0 13.1 mEq/L mEq/L] (02/27/16 10:42 AM) CHEM PANEL Most recent to 1 oldest [Reference Range]: Creatinine Lvl 0.68 mg/dL [0.50-1.40 mg/dL] (02/27/16 10:42 AM) eGFR 92 mL/min/1.73m2 1 *NA* (02/27/16 10:42 AM) BUN [7-22 mg/dL] 24 mg/dL *HI* (02/27/16 10:42 AM) B/C Ratio [6-25] 35 *HI* (02/27/16 10:42 AM) Glucose Lvl [70-99 103 mg/dL mg/dL] *HI* (02/27/16 10:42 AM) Total Protein 7.2 g/dL [6.4-8.4 g/dL] (02/27/16 10:42 AM) Albumin Lvl [3.5-5.0 3.7 g/dL g/dL] (02/27/16 10:42 AM) Globulin [2.0-4.0 3.5 g/dL g/dL] (02/27/16 10:42 AM) A/G Ratio [0.7-1.6] 1.1 (02/27/16 10:42 AM) Calcium Lvl 8.6 mg/dL [8.5-10.5 mg/dL] (02/27/16 10:42 AM) ALT [0-65 unit/L] 31 unit/L (02/27/16 10:42 AM) AST [0-37 unit/L] 17 unit/L (02/27/16 10:42 AM) Alk Phos [39-136 130 unit/L unit/L] (02/27/16 10:42 AM) Bili Total [0.2-1.3 0.5 mg/dL mg/dL] (02/27/16 10:42 AM) Chromogranin A [< 5 ng/mL 2 OR=15 ng/mL] *NA* (02/27/16 10:43 AM) 1Result Comment: The eGFR is calculated using [...] tiplied by the estimated BMI. 2Result Comment: This test was performed using a laboratory developed electrochemiluminescent method. Values obtained with different assay methods cannot be used interchangeably. Chromogranin A levels, regardless of value, should not be interpreted as absolute evidence of the presence or absence of disease. This test was developed and its analytical performance characteristics have been determined by [facility]. It has not been cleared or approved by FDA. This assay has been validated pursuant to the CLIA regulations and is used for clinical purposes. Test Performed at: [facility] [address] [place] [address] Jessica Trinh MD, PhD HEMATOLOGY Most recent to 1 oldest [Reference Range]: WBC [3.7-10.4 K/CMM] 5.0 K/CMM (02/27/16 10:42 AM) RBC [4.20-5.40 4.89 M/CMM M/CMM] (02/27/16 10:42 AM) Hgb [12.0-16.0 g/dL] 13.3 g/dL (02/27/16 10:42 AM) Hct [36.0-48.0 %] 40.7 % (02/27/16 10:42 AM) MCV [80.0-98.0 fL] 83.3 fL (02/27/16 10:42 AM) MCH [27.0-31.0 pg] 27.1 pg (02/27/16 10:42 AM) MCHC [32.0-36.0 32.6 g/dL g/dL] (02/27/16 10:42 AM) RDW [11.5-14.5 %] 15.1 % *HI* (02/27/16 10:42 AM) Platelet [133-450 220 K/CMM K/CMM] (02/27/16 10:42 AM) MPV [7.4-10.4 fL] 8.8 fL (02/27/16 10:42 AM) Segs [45.0-75.0 %] 66.5 % (02/27/16 10:42 AM) Lymphocytes 23.6 % [20.0-40.0 %] (02/27/16 10:42 AM) Monocytes [2.0-12.0 7.7 % %] (02/27/16 10:42 AM) Eosinophils [0.0-4.0 1.2 % %] (02/27/16 10:42 AM) Basophils [0.0-1.0 1.0 % %] (02/27/16 10:42 AM) Segs-Bands # 3.3 K/CMM [1.5-8.1 K/CMM] (02/27/16 10:42 AM) Lymphocytes # 1.2 K/CMM [1.0-5.5 K/CMM] (02/27/16 10:42 AM) Monocytes # [0.0-0.8 0.4 K/CMM K/CMM] (02/27/16 10:42 AM) Eosinophils # 0.1 K/CMM [0.0-0.5 K/CMM] (02/27/16 10:42 AM) Immunizations No data available for this section [...]
--- OUTSIDE RECORDS SUMMARY | 2019-03-03 16:32 | XMS REPORT | Summary of Care ---
Author Author [facility] Organization [facility] Address Unknown Phone Unavailable Encounter KAREEM Bull([facility]) [id number] Date(s): 05/10/15 - 05/11/15 [facility] [address] [place] [address]- Discharge Disposition: Home Attending Physician: Santana Newman MD Admitting Physician: Santana Newman MD Vital Signs 1 2 3 Most recent to oldest [Reference Range]: 165.1 cm (05/10/15 3:44 PM) Height 1 2 3 Most recent to oldest [Reference Range]: 97.5 DegF (05/11/15 4:21 PM) 98.3 DegF (05/11/15 2:28 PM) 98 DegF (05/11/15 7:51 AM) Temperature Oral [96.4-99.1 DegF] 1 2 3 Most recent to oldest [Reference Range]: 101/56 mmHg (05/11/15 4:21 PM) 144/82 mmHg *HI* (05/11/15 2:28 PM) 125/81 mmHg (05/11/15 7:51 AM) Blood Pressure [90-140/60-90 mmHg] 1 2 3 Most recent to oldest [Reference Range]: 20 BRMIN (05/11/15 4:21 PM) 19 BRMIN (05/11/15 2:28 PM) 18 BRMIN (05/11/15 7:51 AM) Respiratory Rate [14-20 BRMIN] 1 2 3 Most recent to oldest [Reference Range]: 64 bpm (05/11/15 4:21 PM) 60 bpm (05/11/15 2:28 PM) 55 bpm *LOW* (05/11/15 7:51 AM) Peripheral Pulse Rate [60-100 bpm] 1 2 3 Most recent to oldest [Reference Range]: 61.364 kg (05/11/15 7:51 AM) 61.364 kg (05/10/15 3:44 PM) Weight 1 2 3 Most recent to oldest [Reference Range]: 22.51 m2 (05/10/15 3:44 PM) Body Mass Index Problem List Condition [...] itching sulfa drugs nausea Active Medications acetaminophen 650 mg, 2 tab, Route: PO, Drug form: TAB, Q4H, Dosing Weight 61.364, kg, PRN Truman n 1-3/Temp > 100.4 F, Start date: 05/10/15 17:56:00, Duration: 30 day, Stop date: 06/09/15 17:55:00 Notes: Do not exceed 4 gm/day. (Same as: Tylenol) Start Date: 05/10/15 Stop Date: 05/11/15 Status: Discontinued atropine 0.5 mg, 5 mL, Route: IVP, Drug form: INJ, PRN, PRN Bradycardia, Start date: 04/15 03/28 20:48:00, Duration: 30 day, Stop date: 06/09/15 20:47:00 Start Date: 05/10/15 Stop Date: 05/11/15 Status: Discontinued CeleBREX 200 mg, 1 cap, Route: PO, Drug form: CAP, Daily, Dosing Weight 61.364, kg, PRN P ain Score 1-5, Start date: 05/11/15 10:57:00, Duration: 30 day, Stop date: 06/10 10:56:00 Notes: NSAID. Please check indication. Not for seizure. (Same As: CeleBREX) Start Date: 05/11/15 Stop Date: 05/11/15 Status: Discontinued CeleBREX 200 mg oral capsule 200 mg=1 cap, PO, Daily, PRN Other -See Comment, 0 Refill(s) Start Date: 05/10/15 Status: Ordered Dexilant 60 mg, Route: PO, Drug form: DRC, Daily, Dosing Weight 61.364, kg, Start date: 0 05/12/15 9:00:00, Duration: 30 day, Stop date: 06/10/15 9:00:00 Start Date: 05/12/15 Stop Date: 05/11/15 Status: Deleted docusate 100 mg, 1 cap, Route: PO, Drug form: CAP, BID, Dosing Weight 61.364, kg, PRN Con stipation, Start date: 05/10/15 17:56:00, Duration: 30 day, Stop date: 06/09/15 17:55:00 Notes: (Same as: Colace) (Do Not Crush) Start Date: 05/10/15 Stop Date: 05/11/15 Status: Discontinued enoxaparin 40 mg, 0.4 mL, Route: SUB-Q, Drug form: INJ, [id number], Dosing Weight 61.364, kg, Start date: 05/10/15 18:00:00, Duration: 30 day, Stop date: 06/08/15 18:00:00 Notes: (Same as: Lovenox) Start Date: 05/10/15 Stop Date: 05/11/15 Status: Discontinued gabapentin 400 mg oral capsule 400 mg, 1 cap, Route: PO, Drug form: CAP, TID, Dosing Weight 61.364, kg, Start d ate: 05/11/15 13:00:00, Duration: 30 day, Stop date: 06/10/15 9:00:00 Notes: (Same as: Neurontin) Start Date: 05/11/15 Stop Date: 05/11/15 Status: Discontinued lisinopril 20 mg, 1 tab, Route: PO, Drug form: TAB, Daily, Dosing Weight 61.364, kg, Start date: 05/12/15 9:00:00, Duration: 30 day, Stop date: 06/10/15 9:00:00 Notes: (Same as: Prinivil, Zestril) Start Date: 05/12/15 Stop Date: 05/11/15 Status: Canceled nitroglycerin 0.4 mg sublingual tablet 0.4 mg, 1 tab, Route: SL, Drug form: TAB, Q5Min, PRN Chest Pain, Start date: 20:50:00, Duration: 30 day, Stop date: 06/09/15 20:49:00 Notes: (Same as:Nitroquick, Nitrostat)"Do Not Crush" Sublingual tablet Start Date: 05/10/15 Stop Date: 05/11/15 Status: Discontinued octreotide 20 mg intramuscular injection 40 mg, IM, ONCALL, 0 Refill(s) Start Date: 05/11/15 Status: Ordered octreotide 30 mg intramuscular injection 30 mg, IM, ONCE, 0 Refill(s) Start Date: 05/11/15 Stop Date: 05/11/15 Status: Discontinued ondansetron 4 mg, 2 mL, Route: IVP, Drug form: INJ, Q6H, Dosing Weight 61.364, kg, PRN Nause a & Vomiting, Start date: 05/10/15 17:56:00, Duration: 30 day, Stop date: 06/09/15 17:55:00 Notes: (Same as: Zofran) MEDICATION WASTE Product Size: 4 mgProduct Was mary: ___ mg Start Date: 05/10/15 Stop Date: 05/11/15 Status: Discontinued Protonix 40 mg, 1 tab, Route: PO, Drug form: ECTAB, Before Dinner, Dosing Weight 61.364, kg, Start date: 05/11/15 16:30:00, Duration: 30 day, Stop date: 06/09/15 16:30:0 0 Notes: Tablet should not be chewed or crushed.(Same as: Protonix) Start Date: 05/11/15 Stop Date: 05/11/15 Status: Canceled SUMAtriptan 50 mg, 2 tab, Route: PO, Drug form: TAB, Daily, Dosing Weight 61.364, kg, PRN He adache 4-6, Start date: 05/11/15 10:57:00, Duration: 30 day, Stop date: 06/10/15 10:56:00, migraine Notes: (Same As: Imitrex) Start Date: 05/11/15 Stop Date: 05/11/15 Status: Discontinued SUMAtriptan 50 mg oral tablet 50 mg=1 tab, PO, Daily, PRN as needed for migraines, 0 Refill(s) Start Date: 05/10/15 Status: Ordered tramadol 50 mg oral tablet 50 mg, 1 tab, Route: PO, Drug form: TAB, Q6H, Dosing Weight 61.364, kg, PRN Pain Score 1-5, Start date: 05/11/15 10:57:00, Duration: 30 day, Stop date: 06/10/15 10:56:00 Notes: Not to exceed 400mg/day. (Same As: Ultram) Start Date: 05/11/15 Stop Date: 05/11/15 Status: Discontinued Tylenol 650 mg, Route: PO, Drug form: TAB, Q6H, Dosing Weight 61.364, kg, PRN Pain Score 1-3, Start date: 05/10/15 18:50:00, Duration: 30 day, Stop date: 06/09/15 18:49 :00 Start Date: 05/10/15 Stop Date: 05/10/15 Status: Discontinued Xanax 0.25 mg oral tablet 0.25 mg, 1 tab, Route: PO, Drug form: TAB, TID, Dosing Weight 61.364, kg, PRN as needed for anxiety, Start date: 05/11/15 10:57:00, Duration: 30 day, Stop date: 06/10/15 10:56:00 Notes: With food or milk(Same as: Xanax) Start Date: 05/11/15 Stop Date: 05/11/15 Status: Discontinued Xanax 0.25 mg oral tablet 0.25 mg=1 tab, PO, TID, PRN as needed for anxiety, 0 Refill(s) Start Date: 05/10/15 Status: Ordered Results ELECTROLYTES Most recent to 1 2 oldest [Reference Range]: Sodium Lvl [135-145 143 mEq/L 141 mEq/L mEq/L] (05/11/15 4:57 AM) (05/10/15 3:51 PM) Potassium Lvl 4.0 mEq/L 3.6 mEq/L [3.5-5.1 mEq/L] (05/11/15 4:57 AM) (05/10/15 3:51 PM) Chloride Lvl [95-109 109 mEq/L 107 mEq/L mEq/L] (05/11/15 4:57 AM) (05/10/15 3:51 PM) CO2 [24-32 mEq/L] 28 mEq/L 24 mEq/L (05/11/15 4:57 AM) (05/10/15 3:51 PM) AGAP [10.0-20.0 10.0 mEq/L 13.6 mEq/L mEq/L] (05/11/15 4:57 AM) (05/10/15 3:51 PM) CHEM PANEL Most recent to 1 2 oldest [Reference Range]: Creatinine Lvl 0.7 mg/dL 0.9 mg/dL [0.5-1.4 mg/dL] (05/11/15 4:57 AM) (05/10/15 3:51 PM) eGFR 92 mL/min/1.73m2 1 68 mL/min/1.73m2 2 *NA* *NA* (05/11/15 4:57 AM) (05/10/15 3:51 PM) BUN [7-22 mg/dL] 23 mg/dL 28 mg/dL *HI* *HI* (05/11/15 4:57 AM) (05/10/15 3:51 PM) B/C Ratio [6-25] 31 *HI* (05/10/15 3:51 PM) Glucose Lvl [70-99 113 mg/dL 191 mg/dL mg/dL] *HI* *HI* (05/11/15 4:57 AM) (05/10/15 3:51 PM) Total Protein 7.6 g/dL [6.4-8.4 g/dL] (05/10/15 3:51 PM) Albumin Lvl [3.5-5.0 3.9 g/dL g/dL] (05/10/15 3:51 PM) Globulin [2.0-4.0 3.7 g/dL g/dL] (05/10/15 3:51 PM) A/G Ratio [0.7-1.6] 1.1 (05/10/15 3:51 PM) Calcium Lvl 8.3 mg/dL 8.8 mg/dL [8.5-10.5 mg/dL] *LOW* (05/10/15 3:51 PM) (05/11/15 4:57 AM) Phosphorus [2.5-4.5 4.3 mg/dL mg/dL] (05/10/15 9:49 PM) Magnesium Lvl 1.7 mg/dL [1.8-2.4 mg/dL] *LOW* (05/10/15 9:49 PM) ALT [0-65 unit/L] 33 unit/L (05/10/15 3:51 PM) AST [0-37 unit/L] 21 unit/L (05/10/15 3:51 PM) Alk Phos [39-136 159 unit/L unit/L] *HI* (05/10/15 3:51 PM) Bili Total [0.2-1.3 0.4 mg/dL mg/dL] (05/10/15 3:51 PM) 1Result Comment: The eGFR is calculated [...] tiplied by the estimated BMI. CARDIAC ENZYMES Most recent to 1 2 oldest [Reference Range]: Total CK [12-191 65 unit/L unit/L] (05/10/15 3:51 PM) CK MB [0.5-3.6 1.6 ng/mL ng/mL] (05/10/15 3:51 PM) CK MB Index 2.5 [0.0-2.5] (05/10/15 3:51 PM) Troponin-I <0.02 ng/mL [0.00-0.40 ng/mL] (05/10/15 3:51 PM) BNP [<=100 pg/mL] 63 pg/mL (05/10/15 3:51 PM) HEMATOLOGY Most recent to 1 2 oldest [Reference Range]: WBC [3.7-10.4 K/CMM] 4.9 K/CMM 6.9 K/CMM (05/11/15 4:57 AM) (05/10/15 3:51 PM) RBC [4.20-5.40 4.16 M/CMM 4.84 M/CMM M/CMM] *LOW* (05/10/15 3:51 PM) (05/11/15 4:57 AM) Hgb [12.0-16.0 g/dL] 12.0 g/dL 13.9 g/dL (05/11/15 4:57 AM) (05/10/15 3:51 PM) Hct [36.0-48.0 %] 34.5 % 40.5 % *LOW* (05/10/15 3:51 PM) (05/11/15 4:57 AM) MCV [80.0-98.0 fL] 82.9 fL 83.6 fL (05/11/15 4:57 AM) (05/10/15 3:51 PM) MCH [27.0-31.0 pg] 28.7 pg 28.6 pg (05/11/15 4:57 AM) (05/10/15 3:51 PM) MCHC [32.0-36.0 34.7 g/dL 34.3 g/dL g/dL] (05/11/15 4:57 AM) (05/10/15 3:51 PM) RDW [11.5-14.5 %] 16.0 % 16.1 % *HI* *HI* (05/11/15 4:57 AM) (05/10/15 3:51 PM) Platelet [133-450 208 K/CMM 291 K/CMM K/CMM] (05/11/15 4:57 AM) (05/10/15 3:51 PM) MPV [7.4-10.4 fL] 9.5 fL 9.6 fL (05/11/15 4:57 AM) (05/10/15 3:51 PM) Segs [45.0-75.0 %] 57.4 % 65.0 % (05/11/15 4:57 AM) (05/10/15 3:51 PM) Lymphocytes 30.8 % 25.5 % [20.0-40.0 %] (05/11/15 4:57 AM) (05/10/15 3:51 PM) Monocytes [2.0-12.0 8.5 % 5.9 % %] (05/11/15 4:57 AM) (05/10/15 3:51 PM) Eosinophils [0.0-4.0 2.7 % 2.8 % %] (05/11/15 4:57 AM) (05/10/15 3:51 PM) Basophils [0.0-1.0 0.6 % 0.8 % %] (05/11/15 4:57 AM) (05/10/15 3:51 PM) Segs-Bands # 2.8 K/CMM 4.5 K/CMM [1.5-8.1 K/CMM] (05/11/15 4:57 AM) (05/10/15 3:51 PM) Lymphocytes # 1.5 K/CMM 1.8 K/CMM [1.0-5.5 K/CMM] (05/11/15 4:57 AM) (05/10/15 3:51 PM) Monocytes # [0.0-0.8 0.4 K/CMM 0.4 K/CMM K/CMM] (05/11/15 4:57 AM) (05/10/15 3:51 PM) Eosinophils # 0.1 K/CMM 0.2 K/CMM [0.0-0.5 K/CMM] (05/11/15 4:57 AM) (05/10/15 3:51 PM) Basophils # [0.0-0.2 0.1 K/CMM K/CMM] (05/10/15 3:51 PM) PT [12.0-14.7 13.7 seconds seconds] (05/10/15 3:51 PM) INR [0.85-1.17] 1.02 (05/10/15 3:51 PM) PTT [22.9-35.8 32.5 seconds seconds] (05/10/15 3:51 PM) Immunizations No data available for this [...] Plan Extracted from: Title: Clinical Document Author: Kaykay Thibodeaux Date: 05/11/15 ALBERTO Internal Medicine Progress Note [facility] SUBJECTIVE No acute events. Pt denies BENSON, dizziness, dysphagia, neck stiffness, CP, SOB, hemoptysis, N/V/D/C, hematemesis, hematochezia, hematuria, dysuria, skin rash. OBJECTIVE Vital Signs (last 24 hrs) Last Charted Temp Oral98 DegF (MAY 11 07:51) Heart Rate PeripheralL 55bpm (MAY 11 07:51) Resp Rate 18 BRMIN (MAY 11 07:51) GSZ889 mmHg (MAY 11 07:51) DBP81 mmHg (MAY 11 07:51) Guegqj73.364 kg (MAY 11 07:51) Hvtcun702.1 cm (MAY 10 15:44) BMI22.51 (MAY 10 15:44) Labs (Last four charted values) WBC 4.9(MAY 11)6.9(MAY 10) Hgb 12.0(MAY 11)13.9(MAY 10) Hct L 34.5(MAY 11)40.5(MAY 10) Plt 208(MAY 11)291(MAY 10) Na 143(MAY 11)141(MAY 10) K 4.0(MAY 11)3.6(MAY 10) CO2 28(MAY 11)24(MAY 10) Cl 109(MAY 11)107(MAY 10) Cr 0.7(MAY 11)0.9(MAY 10) BUN H 23(MAY 11)H 28(MAY 10) Glucose Random H 113(MAY 11)H 191(MAY 10) Mg L 1.7(MAY 10) Phos 4.3(MAY 10) Ca L 8.3(MAY 11)8.8(MAY 10) PT 13.7(MAY 10) INR 1.02(MAY 10) PTT 32.5(MAY 10) Troponin <0.02(MAY 10) CK MB 1.6(MAY 10) Total CK 65(MAY 10) Medications (14) Active Scheduled Meds (4): 05/10/15 enoxaparin 40 mg SUB-Q [id number] 05/11/15 gabapentin (gabapentin 400 mg oral capsule) 400 mg PO TID 05/12/15 lisinopril 20 mg PO Daily 05/11/15 pantoprazole (Protonix) 40 mg PO Before Dinner Unscheduled Meds (1): 03/14/15 octreotide (SandoSTATIN [place]) 40 mg IM ONCALL PRN Meds (9): 05/11/15 ALPRAZolam (Xanax 0.25 mg oral tablet) 0.25 mg PO TID 05/11/15 SUMAtriptan 50 mg PO Daily 05/10/15 acetaminophen 650 mg PO Q4H 05/10/15 atropine 0.5 mg IVP PRN 05/11/15 celecoxib (CeleBREX) 200 mg PO Daily 05/10/15 docusate 100 mg PO BID 05/10/15 nitroglycerin (nitroglycerin 0.4 mg sublingual tablet) 0.4 mg SL Q5Min 05/10/15 ondansetron 4 mg IVP Q6H 05/11/15 tramadol (tramadol 50 mg oral tablet) 50 mg PO Q6H One Time Meds: None Continuous Infusions: None Physical Exam Gen: Pt resting comfortably, A&Ox3, NAD HEENT: PERRLA, EOMI, normocephalic, atraumatic, no thyromegaly, no neck stiffness Chest: RRR, no M/R/G, CTAB, no rhonchi wheezes or rales Abd: Bowel sounds present in 4 quads, soft, ND, NTTP Ext: No cyanosis or edema Skin: No rash noted ASSESSMENT & PLAN 1. Tachycardia. 2. Carcinoid tumor. 3. Hypertension 4. Palpitations. Pt doing well, Sx resolved. HR stable and NSR. Ok to d/c.
--- OUTSIDE RECORDS SUMMARY | 2019-03-03 16:32 | XMS REPORT | Summary of Care ---
Author Author [facility] Organization [facility] Address Unknown Phone Unavailable Encounter KAREEM Bull([facility]) [id number] Date(s): 10/30/15 - 11/28/15 [facility] [address] [place] [address]- [phone] Discharge Disposition: Home Attending Physician: Demetrio Walsh MD Referring Physician: Demetrio Walsh MD Vital Signs Most recent to 1 oldest [Reference Range]: Height 165.1 cm (10/30/15 8:59 AM) Temperature Oral 97.9 DegF [96.4-99.1 DegF] (11/22/15 1:50 PM) Blood Pressure 121/71 mmHg [90-140/60-90 mmHg] (11/22/15 1:50 PM) Respiratory Rate 18 BRMIN [14-20 BRMIN] (11/22/15 1:50 PM) Peripheral Pulse 69 bpm Rate [60-100 bpm] (11/22/15 1:50 PM) Weight 61.2 kg (10/30/15 8:59 AM) Body Mass Index 22.45 m2 (10/30/15 8:59 AM) Problem List Condition Effective Dates Status [...] form: PDR/INJ, ONCALL, Start date: 11/22/15 9:00:00, Dura tion: 24 hr, Stop date: 11/23/15 8:59:00 Notes: Same As: (SandoSTATIN [place])Refrigerated Item Non-Formulary Item Start Date: 11/22/15 Stop Date: 11/23/15 Status: Completed SandoSTATIN [place] 30 mg, Route: IM, Drug form: INJ, ONCALL, Start date: 10/30/15 11:00:00, Duratio n: 24 hr, Stop date: 10/31/15 10:59:00 Notes: Non-Formulary Drug. (Same As: SandoSTATIN [place]). Refrigerate. Start Date: 10/30/15 Stop Date: 10/31/15 Status: Completed SandoSTATIN [place] 10 mg, Route: IM, Drug form: PDR/INJ, ONCALL, Start date: 10/30/15 11:00:00, Dur ation: 24 hr, Stop date: 10/31/15 10:59:00 Notes: Same As: (SandoSTATIN [place])Refrigerated Item Non-Formulary Item Start Date: 10/30/15 Stop Date: 10/31/15 Status: Completed SandoSTATIN [place] 30 mg, Route: IM, Drug form: INJ, ONCALL, Start date: 11/22/15 9:00:00, Duration : 24 hr, Stop date: 11/23/15 8:59:00 Notes: Non-Formulary Drug. (Same As: SandoSTATIN [place]). Refrigerate. Start Date: 11/22/15 Stop Date: 11/23/15 Status: Completed Results No data available for [...]
--- OUTSIDE RECORDS SUMMARY | 2019-03-03 16:32 | XMS REPORT | Summary of Care ---
Author Author [facility] Organization [facility] Address Unknown Phone Unavailable Encounter [facility] Vaishali_maría elena([facility]) [id number] Date(s): 03/03/16 - 03/03/16 [facility] [address] [place] [address]- [phone] Discharge Disposition: Home Attending Physician: Demetrio Walsh [...]
--- OUTSIDE RECORDS SUMMARY | 2019-03-03 16:32 | XMS REPORT | Summary of Care ---
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) HTN Active (hypertension)(Confi rmed) Liver Resolved cancer(Confirmed) 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 Start Date: 07/16/15 Stop Date: 07/16/15 Status: Completed SandoSTATIN [place] 40 mg, Route: IM, Drug form: PDR/INJ, ONCALL, Start date: 06/25/15 9:00:00, Dura tion: 8 hr, Stop date: 06/25/15 16:59:00 Notes: Non-Formulary Drug. (Same As: SandoSTATIN [place]). Refrigerate. Start Date: 06/25/15 Stop Date: 06/25/15 Status: Completed Results No data available for [...]
--- OUTSIDE RECORDS SUMMARY | 2019-03-03 16:32 | XMS REPORT | Summary of Care ---
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) HTN Active (hypertension)(Confi rmed) Liver Resolved cancer(Confirmed) 81197, 2009 with mets to liver and bilateral lungs Allergies, Adverse Reactions, Alerts Substance Reaction Severity Status aspirin lips swell Active itching doxycycline hives Active Levaquin hives Active morphine hives Active nightmares penicillins itching Active lip swelling streptomycin lips swell Active itching sulfa drugs nausea Active Medications SandoSTATIN [place] 30 mg, Route: IM, Drug form: INJ, ONCALL, Start date: 03/06/16 10:00:00 CDT, Dur ation: 24 hr, Stop date: 03/07/16 9:59:00 CDT Notes: Non-Formulary Drug. (Same As: SandoSTATIN [place]). Refrigerate. Start Date: 03/06/16 Stop Date: 03/07/16 Status: Completed SandoSTATIN [place] 30 mg, Route: IM, Drug form: INJ, ONCALL, Start date: 03/27/16 11:00:00 CDT, Dur ation: 24 hr, Stop date: 03/28/16 10:59:00 CDT Notes: Non-Formulary Drug. (Same As: SandoSTATIN [place]). Refrigerate. Start Date: 03/27/16 Stop Date: 03/28/16 Status: Completed SandoSTATIN [place] 10 mg, Route: IM, Drug form: PDR/INJ, ONCALL, Start date: 03/06/16 10:00:00 CDT, Duration: 24 hr, Stop date: 03/07/16 9:59:00 CDT Notes: Same As: (SandoSTATIN [place])Refrigerated Item Non-Formulary Item Start Date: 03/06/16 Stop Date: 03/07/16 Status: Completed SandoSTATIN [place] 10 mg, Route: IM, Drug form: PDR/INJ, ONCALL, Start date: 03/27/16 11:00:00 CDT, Duration: 24 hr, Stop date: 03/28/16 10:59:00 CDT Notes: Same As: (SandoSTATIN [place])Refrigerated Item Non-Formulary Item Start Date: 03/27/16 Stop Date: 03/28/16 Status: Completed Results No data available for [...]
--- OUTSIDE RECORDS SUMMARY | 2019-03-03 16:32 | XMS REPORT | Summary of Care ---
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) HTN Active (hypertension)(Confi rmed) Liver Resolved cancer(Confirmed) 63413, 2010 with mets to liver and bilateral lungs Allergies, Adverse Reactions, Alerts Substance Reaction Severity Status aspirin lips swell Active itching doxycycline hives Active Levaquin hives Active morphine hives Active nightmares penicillins itching Active lip swelling streptomycin lips swell Active itching sulfa drugs nausea Active Medications SandoSTATIN [place] 30 mg, Route: IM, Drug form: INJ, ONCALL, Start date: 01/02/16 9:00:00 CDT, Dura tion: 24 hr, Stop date: 01/03/16 8:59:00 CDT Notes: Non-Formulary Drug. (Same As: SandoSTATIN [place]). Refrigerate. Start Date: 01/02/16 Stop Date: 01/03/16 Status: Completed SandoSTATIN [place] 10 mg, Route: IM, Drug form: PDR/INJ, ONCALL, Start date: 12/12/15 9:30:00, Dura tion: 24 hr, Stop date: 12/13/15 9:29:00 Notes: Same As: (SandoSTATIN [place])Refrigerated Item Non-Formulary Item Start Date: 12/12/15 Stop Date: 12/12/15 Status: Completed SandoSTATIN [place] 10 mg, Route: IM, Drug form: PDR/INJ, ONCALL, Start date: 01/02/16 9:00:00 CDT, Duration: 24 hr, Stop date: 01/03/16 8:59:00 CDT Notes: Same As: (SandoSTATIN [place])Refrigerated Item Non-Formulary Item Start Date: 01/02/16 Stop Date: 01/03/16 Status: Completed SandoSTATIN [place] 30 mg, Route: IM, Drug form: INJ, ONCALL, Start date: 12/12/15 9:30:00, Duration : 24 hr, Stop date: 12/13/15 9:29:00 Notes: Non-Formulary Drug. (Same As: Sando[facility] [place]). Refrigerate. Start Date: 12/12/15 Stop Date: 12/12/15 Status: Completed Results No data available for [...]
--- OUTSIDE RECORDS SUMMARY | 2019-03-03 16:32 | XMS REPORT | Summary of Care ---
Author Author [facility] Organization [facility] Address Unknown Phone Unavailable Encounter KAREEM Bull([facility]) [id number] Date(s): 04/02/15 - 05/01/15 [facility] [address] [place] [address]- Discharge Disposition: Home Attending Physician: Demetrio Walsh MD Referring Physician: Demetrio Walsh MD Vital Signs Most recent to 1 oldest [Reference Range]: Height 165.1 cm (04/02/15 8:25 AM) Most recent to 1 oldest [Reference Range]: Weight 69.3 kg (04/02/15 8:25 AM) Most recent to 1 oldest [Reference Range]: Body Mass Index 25.42 m2 (04/02/15 8:25 AM) Problem List Condition Effective Dates Status Health Status Informant Arthritis(Confirmed) Resolved Cancer, 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 Start Date: 04/23/15 Stop Date: 04/23/15 Status: Completed [facility]IN [place] 40 mg, Route: IM, Drug form: PDR/INJ, ONCALL, Start date: 04/02/15 9:00:00, Dura tion: 8 hr, Stop date: 04/02/15 16:59:00 Notes: Non-Formulary Drug. (Same As: [facility] [place]). Refrigerate. Start Date: 04/02/15 Stop Date: 04/02/15 Status: Completed Results No data available for [...]
--- OUTSIDE RECORDS SUMMARY | 2019-03-03 16:32 | XMS REPORT | Summary of Care ---
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 (Same As: SandoSTATIN [place]). Refrigerate. Start Date: 06/04/15 Stop Date: 06/04/15 Status: Completed SandoSTATIN [place] 40 mg, Route: IM, Drug form: PDR/INJ, ONCALL, Start date: 05/14/15 9:30:00, Dura tion: 1 doses or times Notes: Non-Formulary Drug. (Same As: SandoSTATIN [place]). Refrigerate. Start Date: 05/14/15 Stop Date: 05/14/15 Status: Completed Results No data available for [...]
--- OUTSIDE RECORDS SUMMARY | 2019-03-03 16:32 | XMS REPORT | Summary of Care ---
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 (Same As: SandoSTATIN [place]). Refrigerate. Start Date: 02/14/16 Stop Date: 02/15/16 Status: Completed SandoSTATIN [place] 30 mg, Route: IM, Drug form: INJ, ONCALL, Start date: 01/24/16 11:30:00 CDT, Dur ation: 24 hr, Stop date: 01/25/16 11:29:00 CDT Notes: Non-Formulary Drug. (Same As: SandoSTATIN [place]). Refrigerate. Start Date: 01/24/16 Stop Date: 01/24/16 Status: Completed SandoSTATIN [place] 10 mg, Route: IM, Drug form: PDR/INJ, ONCALL, Start date: 02/14/16 11:00:00 CDT, Duration: 24 hr, Stop date: 02/15/16 10:59:00 CDT Notes: Same As: (SandoSTATIN [place])Refrigerated Item Non-Formulary Item Start Date: 02/14/16 Stop Date: 02/15/16 Status: Completed Results No data available for [...]
--- OUTSIDE RECORDS SUMMARY | 2019-03-03 16:32 | XMS REPORT | Summary of Care ---
Author Author [facility] Organization [facility] Address Unknown Phone Unavailable Encounter KAREEM Bull([facility]) [id number] Date(s): 08/06/15 - 09/04/15 [facility] [address] [place] [address]- [phone] Discharge Disposition: Home Attending Physician: Demetrio Walsh MD Referring Physician: Demetrio Walsh MD Vital Signs Most recent to 1 oldest [Reference Range]: Height 165.1 cm (08/06/15 10:41 AM) Weight 61.36 kg (08/06/15 10:41 AM) Body Mass Index 22.51 m2 (08/06/15 10:41 AM) Problem List Condition Effective Dates Status [...] form: PDR/INJ, ONCALL, Start date: 08/06/15 12:00:00, Dur ation: 1 day, Stop date: 08/07/15 11:59:00 Notes: Non-Formulary Drug. Start Date: 08/06/15 Stop Date: 08/06/15 Status: Completed SandoSTATIN [place] 30 mg, Route: IM, Drug form: INJ, ONCALL, Start date: 08/27/15 13:00:00, Duratio n: 12 hr, Stop date: 08/28/15 0:59:00 Notes: Non-Formulary Drug. (Same As: SandoSTATIN [place]). Refrigerate. Start Date: 08/27/15 Stop Date: 08/27/15 Status: Completed SandoSTATIN [place] 40 mg, Route: IM, Drug form: PDR/INJ, ONCALL, Start date: 08/24/15 9:00:00, Dura tion: 12 hr, Stop date: 08/24/15 20:59:00 Notes: Non-Formulary Drug. Start Date: 08/24/15 Stop Date: 08/23/15 Status: Deleted SandoSTATIN [place] 10 mg, Route: IM, Drug form: PDR/INJ, ONCALL, Start date: 08/27/15 13:00:00, Dur ation: 12 hr, Stop date: 08/28/15 0:59:00 Notes: Same As: (SandoSTATIN [place])Refrigerated Item Non-Formulary Item Start Date: 08/27/15 Stop Date: 08/27/15 Status: Completed SandoSTATIN [place] 40 mg, Route: IM, Drug form: PDR/INJ, ONCALL, Start date: 08/27/15 9:00:00, Dura tion: 12 hr, Stop date: 08/27/15 20:59:00 Notes: Non-Formulary Drug. (Same As: SandoSTATIN [place]). Refrigerate. Start Date: 08/27/15 Stop Date: 08/27/15 Status: Deleted Results No data available for this section [...]
--- OUTSIDE RECORDS SUMMARY | 2019-03-03 16:33 | XMS REPORT | Summary of Care ---
Author Author [facility] Organization [facility] Address Unknown Phone Unavailable Encounter KAREEM Bull([facility]) [id number] Date(s): 05/13/16 - 05/16/16 [facility] [address] [place] [address]- Discharge Disposition: Home or Self Care Attending Physician: Graeme Brower MD Admitting Physician: Graeme Brower MD Vital Signs 1 2 3 Most recent to oldest [Reference Range]: 165.1 cm (05/13/16 12:07 PM) Height 98.1 DegF (05/16/16 11:00 AM) 98.3 DegF (05/16/16 7:00 AM) 98.7 DegF (05/16/16 4:03 AM) Temperature Oral [96.4-99.1 DegF] 102/88 mmHg (05/16/16 8:00 AM) 101/71 mmHg (05/16/16 6:30 AM) 87/61 mmHg *LOW* (05/16/16 6:00 AM) Blood Pressure [90-140/60-90 mmHg] 19 BRMIN (05/16/16 11:29 AM) 21 BRMIN *HI* (05/16/16 9:00 AM) 24 BRMIN *HI* (05/16/16 8:00 AM) Respiratory Rate [14-20 BRMIN] 178 bpm *HI* (05/13/16 12:07 PM) Peripheral Pulse Rate [60-100 bpm] 61.364 kg (05/13/16 4:40 PM) 61.818 kg (05/13/16 12:07 PM) Weight 22.68 m2 (05/13/16 12:07 PM) Body Mass Index Problem List Condition Effective Dates Status Health Status Informant Acid Resolved reflux(Confirmed) Arthritis(Confirmed) Active Cancer, 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) HTN Active (hypertension)(Confi rmed) Liver Resolved cancer(Confirmed) 69[address], 2010 with mets to liver and bilateral lungs Allergies, Adverse Reactions, Alerts Substance Reaction Severity Status aspirin lips swell Active itching doxycycline hives Active Levaquin hives Active morphine hives Active nightmares penicillins itching Active lip swelling streptomycin lips swell Active itching sulfa drugs nausea Active Medications acetaminophen 650 mg, 2 tab, Route: PO, Drug form: TAB, Q4H, Dosing Weight 61.818, kg, PRN Truman n 1-3/Temp > 100.4 F, Start date: 05/13/16 16:19:00 CDT, Duration: 30 day, Stop date: 06/12/16 16:18:00 CDT Notes: Do not exceed 4 gm/day. (Same as: Tylenol) Start Date: 05/13/16 Stop Date: 05/16/16 Status: Discontinued AMIODarone 200 mg, 1 tab, Route: PO, Drug form: TAB, Q12H, Dosing Weight 61.364, kg, Priori ty: NOW, Start date: 05/14/16 12:18:00 CDT, Duration: 30 day, Stop date: 6 9:00:00 CDT Notes: (Same as: Cordarone) Start Date: 05/14/16 Stop Date: 05/15/16 Status: Discontinued AMIODarone 200 mg, 1 tab, Route: PO, Drug form: TAB, BID, Dosing Weight 61.364, kg, Priorit y: NOW, Start date: 05/16/16 14:30:00 CDT, Duration: 30 day, Stop date: 06/15/16 9:00:00 CDT Notes: (Same as: Cordarone) Start Date: 05/16/16 Stop Date: 05/16/16 Status: Discontinued AMIODarone 150 mg, Route: IVP, ONCE, Dosing Weight 61.818, kg, Priority: STAT, Start date: 05/13/16 12:20:00 CDT, Stop date: 05/13/16 12:20:00 CDT Start Date: 05/13/16 Stop Date: 05/13/16 Status: Completed AMIODarone 200 mg oral tablet 200 mg, PO, BID, # 60 tab, 3 Refill(s) Start Date: 05/16/16 Status: Ordered AMIODarone INJ 900 mg + D5W 500 ml INJ 482 mL 900 mg, 18 mL, Rate: 1 mg/min for 6 hours, then reduce to 0.5 mg/min, Dosing Nasim ght 61.818, kg, Route: IV, Total Volume: 500, Start Date: 05/13/16 12:25:00 CDT, Duration: 30 day, Stop date: 06/12/16 12:24:00 CDT, Replace Every: 24 hr Notes: Central administration only for concentration > 2 mg/ml. Use Glass Bottle or Non PVC Bag"Use 0.22 micron in-line filter" MEDICATION WASTE Product Size: 900 mgProduct Wasted: ___ mg Start Date: 05/13/16 Stop Date: 05/14/16 Status: Discontinued AMIODarone INJ 900 mg + D5W 500 ml INJ 482 mL 900 mg, 18 mL, Rate: 1 mg/min for 6 hours, then reduce to 0.5 mg/min, Dosing Nasim ght 61.364, kg, Route: IV, Total Volume: 500, Start Date: 05/15/16 10:39:00 CDT, Duration: 30 day, Stop date: 06/14/16 10:38:00 CDT, Replace Every: 24 hr Notes: Central administration only for concentration > 2 mg/ml. Use Glass Bottle or Non PVC Bag"Use 0.22 micron in-line filter" MEDICATION WASTE Product Size: 900 mgProduct Wasted: ___ mg Start Date: 05/15/16 Stop Date: 05/16/16 Status: Discontinued AMIODarone INJ 900 mg + D5W 500 ml INJ 482 mL 900 mg, 18 mL, Rate: 0.5 mg/min continuously, Dosing Weight 61.364, kg, Route: I V, Total Volume: 500, Start Date: 05/15/16 1:29:00 CDT, Duration: 30 day, Stop d ate: 06/14/16 2:09:00 CDT, Replace Every: 24 hr Notes: Central administration only for concentration > 2 mg/ml. Use Glass Bottle or Non PVC Bag"Use 0.22 micron in-line filter" MEDICATION WASTE Product Size: 900 mgProduct Wasted: ___ mg Start Date: 05/15/16 Stop Date: 05/15/16 Status: Discontinued apixaban 5 mg, 1 tab, Route: PO, Drug form: TAB, Q12H, Dosing Weight 61.818, kg, Start da te: 05/13/16 21:00:00 CDT, Duration: 30 day, Stop date: 06/12/16 9:00:00 CDT Notes: Same as: Eliquis Start Date: 05/13/16 Stop Date: 05/16/16 Status: Discontinued atropine 0.5 mg, 5 mL, Route: IVP, Drug form: INJ, PRN, PRN Bradycardia, Start date: 04/16 09/29 15:33:00 CDT, Duration: 30 day, Stop date: 06/13/16 15:32:00 CDT Start Date: 05/14/16 Stop Date: 05/16/16 Status: Discontinued Dexilant 60 mg, Route: PO, Drug form: DRC, Daily, Dosing Weight 61.818, kg, Start date: 0 05/14/16 9:00:00 CDT, Duration: 30 day, Stop date: 06/12/16 9:00:00 CDT Start Date: 05/14/16 Stop Date: 05/13/16 Status: Deleted digoxin 0.25 mg, 1 mL, Route: IVP, Drug form: INJ, ONCE, Dosing Weight 61.364, kg, Prior ity: NOW, Start date: 05/15/16 15:10:00 CDT, Stop date: 05/15/16 15:10:00 CDT Notes: (Same as: Lanoxin) Start Date: 05/15/16 Stop Date: 05/15/16 Status: Completed digoxin 125 mcg (0.125 mg) oral tablet 0.125 mg, 1 tab, Route: PO, Drug form: TAB, Daily, Dosing Weight 61.364, kg, Alissa ority: NOW, Start date: 05/15/16 15:10:00 CDT, Duration: 30 day, Stop date: 09/29 9:00:00 CDT Notes: Take on an Empty Stomach (Same as: Lanoxin) Start Date: 05/15/16 Stop Date: 05/16/16 Status: Discontinued gabapentin 400 mg oral capsule 400 mg, 1 cap, Route: PO, Drug form: CAP, TID, Dosing Weight 61.818, kg, Start d ate: 05/13/16 13:00:00 CDT, Duration: 30 day, Stop date: 06/12/16 9:00:00 CDT Notes: (Same as: Neurontin) Start Date: 05/13/16 Stop Date: 05/16/16 Status: Discontinued lisinopril 20 mg, 1 tab, Route: PO, Drug form: TAB, Daily, Dosing Weight 61.818, kg, Start date: 05/14/16 9:00:00 CDT, Duration: 30 day, Stop date: 06/12/16 9:00:00 CDT Notes: (Same as: Prinivil, Zestril) Start Date: 05/14/16 Stop Date: 05/15/16 Status: Discontinued lisinopril 10 mg, 1 tab, Route: PO, Drug form: TAB, Daily, Dosing Weight 61.818, kg, Start date: 05/16/16 9:00:00 CDT, Duration: 30 day, Stop date: 06/14/16 9:00:00 CDT Notes: (Same as: ivil Zestril) Start Date: 05/16/16 Stop Date: 05/16/16 Status: Discontinued lisinopril 10 mg oral tablet 10 mg=1 tab, PO, Daily, # 30 tab, 3 Refill(s) Start Date: 05/16/16 Status: Ordered metoprolol extended release 25 mg, 1 tab, Route: PO, Drug form: ERTAB, Daily, Start date: 05/16/16 9:00:00 C DT, Duration: 30 day, Stop date: 06/14/16 9:00:00 CDT Notes: (Same as: Toprol XL) Do Not Crush Start Date: 05/16/16 Stop Date: 05/16/16 Status: Discontinued morphine Sulfate 2 mg, Route: IVP, Q4H, Dosing Weight 61.818, kg, PRN Pain Score 7-10, Start date : 05/13/16 16:19:00 CDT, Duration: 30 day, Stop date: 06/12/16 16:18:00 CDT Start Date: 05/13/16 Stop Date: 05/13/16 Status: Discontinued nitroglycerin 0.4 mg sublingual tablet 0.4 mg, 1 tab, Route: SL, Drug form: TAB, Q5Min, PRN Chest Pain, Start date: 15:34:00 CDT, Duration: 30 day, Stop date: 06/13/16 15:33:00 CDT Notes: (Same as:Nitroquick, Nitrostat)"Do Not Crush" Sublingual tablet Start Date: 05/14/16 Stop Date: 05/16/16 Status: Discontinued ondansetron 4 mg, 2 mL, Route: IVP, Drug form: INJ, Q6H, Dosing Weight 61.818, kg, PRN Nause a & Vomiting, Start date: 05/13/16 16:19:00 CDT, Duration: 30 day, Stop date: 06/12/16 16:18:00 CDT Notes: (Same as: Kenzie) MEDICATION WASTE Product Size: 4 mgProduct Was mary: ___ mg Start Date: 05/13/16 Stop Date: 05/15/16 Status: Discontinued Protonix 40 mg, 1 tab, Route: PO, Drug form: ECTAB, Before Dinner, Start date: 05/13/16 1 6:30:00 CDT, Duration: 30 day, Stop date: 06/11/16 16:30:00 CDT Notes: Tablet should not be chewed or crushed.(Same as: Protonix) Start Date: 05/13/16 Stop Date: 05/16/16 Status: Discontinued Saline Flush 0.9% 10 ml, Route: IVP, Drug Form: INJ, Dosing Weight 61.818, kg, PRN, PRN Line Flush , Start date: 05/13/16 16:19:00 CDT, Duration: 30 day, Stop date: 06/12/16 16:18 :00 CDT Notes: (Same as: BD Posiflush) Start Date: 05/13/16 Stop Date: 05/16/16 Status: Discontinued Saline Flush 0.9% 10 mL, Route: IVP, Drug Form: INJ, Dosing Weight 61.818, kg, PRN, PRN Line Flush , Start date: 05/13/16 12:17:00 CDT, Duration: 30 day, Stop date: 06/12/16 12:16 :00 CDT Notes: (Same as: BD Posiflush) Start Date: 05/13/16 Stop Date: 05/15/16 Status: Discontinued sodium chloride 0.9% 1000 ml INJ 1,000 mL 1,000 mL, Rate: 75 ml/hr, Infuse over: 13.3 hr, Route: IV, Dosing Weight 61.818 kg, Total Volume: 1,000, Start date: 05/13/16 16:19:00 CDT, Duration: 30 day, St op date: 06/12/16 16:18:00 CDT Start Date: 05/13/16 Stop Date: 05/15/16 Status: Discontinued tramadol 50 mg oral tablet 50 mg, 1 tab, Route: PO, Drug form: TAB, Q6H, Dosing Weight 61.818, kg, PRN Pain Score 4-6, Start date: 05/13/16 13:00:00 CDT, Duration: 30 day, Stop date: 05/16 05/30 12:59:00 CDT Notes: Not to exceed 400mg/day. (Same As: Ultram) Start Date: 05/13/16 Stop Date: 05/16/16 Status: Discontinued Xanax 0.25 mg oral tablet 0.25 mg, 1 tab, Route: PO, Drug form: TAB, TID, Dosing Weight 61.818, kg, PRN An xiety, Start date: 05/13/16 13:00:00 CDT, Duration: 30 day, Stop date: 06/12/16 12:59:00 CDT Notes: With food or milk(Same as: Xanax) Start Date: 05/13/16 Stop Date: 05/16/16 Status: Discontinued Results ELECTROLYTES 1 2 3 Most recent to oldest [Reference Range]: 141 mEq/L (05/14/16 4:49 AM) 139 mEq/L (05/13/16 12:23 PM) Sodium Lvl [135-145 mEq/L] 3.6 mEq/L (05/14/16 4:49 AM) 4.0 mEq/L (05/13/16 12:23 PM) Potassium Lvl [3.5-5.1 mEq/L] 109 mEq/L (05/14/16 4:49 AM) 106 mEq/L (05/13/16 12:23 PM) Chloride Lvl [95-109 mEq/L] 23 mEq/L *LOW* (05/14/16 4:49 AM) 25 mEq/L (05/13/16 12:23 PM) CO2 [24-32 mEq/L] 12.6 mEq/L (05/14/16 4:49 AM) 12.0 mEq/L (05/13/16 12:23 PM) AGAP [10.0-20.0 mEq/L] CHEM PANEL 1 2 3 Most recent to oldest [Reference Range]: 0.67 mg/dL (05/14/16 4:49 AM) 0.98 mg/dL (05/13/16 12:23 PM) Creatinine Lvl [0.50-1.40 mg/dL] 92 mL/min/1.73m2 1 *NA* (05/14/16 4:49 AM) 61 mL/min/1.73m2 2 *NA* (05/13/16 12:23 PM) eGFR 14 mg/dL (05/14/16 4:49 AM) 14 mg/dL (05/13/16 12:23 PM) BUN [7-22 mg/dL] 14 (05/13/16 12:23 PM) B/C Ratio [6-25] 124 mg/dL *HI* (05/14/16 4:49 AM) 136 mg/dL *HI* (05/13/16 12:23 PM) Glucose Lvl [70-99 mg/dL] 6.8 g/dL (05/13/16 12:23 PM) Total Protein [6.4-8.4 g/dL] 3.5 g/dL (05/13/16 12:23 PM) Albumin Lvl [3.5-5.0 g/dL] 3.3 g/dL (05/13/16 12:23 PM) Globulin [2.7-4.2 g/dL] 1.1 (05/13/16 12:23 PM) A/G Ratio [0.7-1.6] 7.6 mg/dL *LOW* (05/14/16 4:49 AM) 7.5 mg/dL *LOW* (05/13/16 12:23 PM) Calcium Lvl [8.5-10.5 mg/dL] 2.0 mg/dL (05/14/16 4:49 AM) Magnesium Lvl [1.8-2.4 mg/dL] 33 unit/L (05/13/16 12:23 PM) ALT [0-65 unit/L] 26 unit/L (05/13/16 12:23 PM) AST [0-37 unit/L] 141 unit/L *HI* (05/13/16 12:23 PM) Alk Phos [39-136 unit/L] 0.8 mg/dL (05/13/16 12:23 PM) Bili Total [0.2-1.3 mg/dL] 1Result Comment: [...] 3 Most recent to oldest [Reference Range]: 76 unit/L (05/13/16 9:24 PM) 70 unit/L (05/13/16 5:20 PM) 68 unit/L (05/13/16 12:23 PM) Total CK [12-191 unit/L] 1.3 ng/mL (05/13/16 9:24 PM) 0.8 ng/mL (05/13/16 12:23 PM) CK MB [0.5-3.6 ng/mL] 1.7 (05/13/16 9:24 PM) 1.2 (05/13/16 12:23 PM) CK MB Index [0.0-2.5] 0.20 ng/mL (05/13/16 9:24 PM) 0.19 ng/mL (05/13/16 5:20 PM) <0.02 ng/mL (05/13/16 12:23 PM) Troponin-I [0.00-0.40 ng/mL] HEMATOLOGY 1 2 3 Most recent to oldest [Reference Range]: 10.5 K/CMM *HI* (05/13/16 12:23 PM) WBC [3.7-10.4 K/CMM] 4.83 M/CMM (05/13/16 12:23 PM) RBC [4.20-5.40 M/CMM] 13.3 g/dL (05/13/16 12:23 PM) Hgb [12.0-16.0 g/dL] 40.0 % (05/13/16 12:23 PM) Hct [36.0-48.0 %] 82.8 fL (05/13/16 12:23 PM) MCV [80.0-98.0 fL] 27.5 pg (05/13/16 12:23 PM) MCH [27.0-31.0 pg] 33.2 g/dL (05/13/16 12:23 PM) MCHC [32.0-36.0 g/dL] 15.7 % *HI* (05/13/16:23 PM) RDW [11.5-14.5 %] 282 K/CMM (05/13/16 12:23 PM) Platelet [133-450 K/CMM] 9.6 fL (05/13/16 12:23 PM) MPV [7.4-10.4 fL] 82.5 % *HI* (05/13/16 12:23 PM) Segs [45.0-75.0 %] 9.6 % *LOW* (05/13/16 12:23 PM) Lymphocytes [20.0-40.0 %] 7.3 % (05/13/16 12:23 PM) Monocytes [2.0-12.0 %] 0.6 % (05/13/16 12:23 PM) Basophils [0.0-1.0 %] 8.7 K/CMM *HI* (05/13/16 12:23 PM) Segs-Bands # [1.5-8.1 K/CMM] 1.0 K/CMM (05/13/16 12:23 PM) Lymphocytes # [1.0-5.5 K/CMM] 0.8 K/CMM (05/13/16 12:23 PM) Monocytes # [0.0-0.8 K/CMM] 0.1 K/CMM (05/13/16 12:23 PM) Basophils # [0.0-0.2 K/CMM] Immunizations No data available for this section [...] No Assessment and Plan Extracted from: Title: Discharge Summary * Author: Alexandro Rowland MD Date: 05/16/16 Discharge Plan Discharge Summary Plan Discharge Status: stable. Discharge instructions given: to patient. 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 Telemetry reviewed:Claribel.Delvin with RVR Alert No CP No SOB No N/V Objective VitalsTmp(F)[id number] 05/15 12:[id number]--- 05/15 08:[id number]--- 05/15 04:[id number]--- 05/15 02:15-------/75-------- 05/15 00:[id number]--- 24 Hr Tmax: 98.3F (36.83c) at 05/15 00:00Vital Signs are the last 5 in the past 48 hours. HEENT: Neck Supple, No JVD, no carotid bruits CVS: Irregular rate, Normal S1S2 no murmur rubs or gallops LUNGS: Clear to auscultation ABD: Soft, Non-tender, + BS, no bruits or organomegaly EXT: No ankle edema, palpable distal pulses Skin: No ulcers Neuro: Grossly non-focal Labs (Last four charted values) WBC H 10.5(MAY 13) Hgb 13.3(MAY 13) Hct 40.0(MAY 13) Plt 282(MAY 13) Na 141(MAY 14)139(MAY 13) K 3.6(MAY 14)4.0(MAY 13) CO2 L 23(MAY 14)25(MAY 13) Cl 109(MAY 14)106(MAY 13) Cr 0.67(MAY 14)0.98(MAY 13) BUN 14(MAY 14)14(MAY 13) Glucose Random H 124(MAY 14)H 136(MAY 13) Mg 2.0(MAY 14) Ca L 7.6(MAY 14)L 7.5(MAY 13) Troponin 0.20(MAY 13)0.19(MAY 13)<0.02(MAY 13) CK MB 1.3(MAY 13)0.8(MAY 13) Total CK 76(MAY 13)70(MAY 13)68(MAY 13)Scheduled Meds (4): 05/13/16 apixaban 5 mg PO Q12H 05/13/16 gabapentin (gabapentin 400 mg oral capsule) 400 mg PO TID 05/14/16 lisinopril 20 mg PO Daily 05/13/16 pantoprazole (Protonix) 40 mg PO Before Dinner Extracted from: Title: Clinical Document Author: Graeme Brower MD Date: 05/13/16 History of Present Illness Echocardiogram: Ejection Fraction Date: 04/14/2016, results(%) 60, Type of procedure: Left ventricular Ejection fraction by 2D echo. Cardiovascular follow-up: Mrs. Calderon was recently diagnosed with paroxysmal atrial fibrillation. She had a normal echocardiogram was started on propafenone for rhythm control. I had just seen her in the office a couple weeks ago. Her recent nuclear stress test showed no ischemia and a mild fixed inferior defect. She did have one brief episode of afib 2 weeks ago that lasted for about 15 minutes. She took one extra propaphanone and the afib resolved. Today morning she had acute palpitations as well as chest pain. She tried taking extra propafenone but however this did not convert her back to normal rhythm. She was found to be in atrial fibrillation with rapid ventricular rate heart rate was in the 190s. She was actually given adenosine by the emergency medical crew without any results. In the emergency room her heart rate was in the 190s and she was in a wide complex tachycardia with right bundle branch pattern. After reviewing the EKGs she was noted to be in A. fib atrial fibrillation with aberrant conduction. She was given IV amiodarone 150 mg and her heart rate decreased to 110. She is currently comfortable and denies any further chest discomfort or palpitations. Current Medications Taking Eliquis 5 MG Tablet 1 tablet Twice a day Propafenone HCl 150 MG Tablet 1 tablet every 12 hrs Lisinopril 20 MG Tablet 1 tablet Once a day Sandostatin LAR Depot 40 mg Kit Every 21 days Dexilant 60 MG Capsule Delayed Release 1 capsule Once a day Osphena 60 MG Tablet 1 tablet with food Once a day Tramadol HCl 50 MG Tablet 1 tablet Once a day Gabapentin 400 MG Capsule 1 capsule Three times a day Celebrex 200 MG Capsule 1 capsule Once a day as needed Octreotide Acetate 100 MCG/ML Solution 1 ml As needed Probiotic Tablet Delayed Release 1 tablet Once a day Ellura 200 MG Capsule Calcium 600-200 MG-UNIT Tablet Vitamin D3 2000 UNIT Capsule 1 capsule Once a day Not-Taking/PRN Cystex Tablet Medication List reviewed and reconciled with the patient Past Medical History Hypertension atrial fib- parox CHADS 2 Vasc 3 NST no ischemia- mild fixed inferior defect 2015 Metastatic carcinoid, s/p partial lung lobectomy, partial liver lobectomy, now on chronic sandosatin Surgical History Hysterectomy Gallbladder lobectomy: lung 1996 lobectomy: liver 2009 Family History Mother: 91 yrs Father: 75 yrs, Valve replacement, diagnosed with Unspecified essential hypertension, Unspecified heart disease Social History Smoking. Are you a: never smoker. no Alcohol. Allergies Streptomycin Sulfate: Lips swell & itch Morphine Sulfate: Hives & nightmares Aspirin: Tongue tingles Levaquin: Hives Doxycycline Hyclate: Hives Penicillin: Lips swell & itch Hospitalization/Major Diagnostic Procedure surgery Atrial fibrillation 2015 Review of Systems General/Constitutional: Fatigue no. Weakness no. Weight gain no. Headaches no. Allergy/Immunology: Colds no. Cough no. HEENT/Neck: Dizziness no. Change in vision no. Respiratory: Chest congestion no. Cough no. Pain with breathing no. Shortness of breath no. Swelling of the legs no. Wheezing no. Cardiovascular: Chest pain no. Claudication no. Dyspnea on exertion no. Palpitations feels heart racing, greater than 1 minute. Gastrointestinal: Abdominal pain no. Change in bowel habits no. Constipation no. Diarrhea no. Nausea no. Hematology: Easy bleeding no. Easy bruising no. Musculoskeletal: Back pain , chronic. Myalgias no. Vital Signs Vital Signs (last 24 hrs) Last Charted Heart Rate Eqlvym00 to 190 Resp Rate 19 BRMIN (MAY 13 12:55) SPH279 mmHg (MAY 13 12:55) DBP77 mmHg (MAY 13 12:55) LmV792 % (MAY 13 12:) Yvfvei25.818 kg (MAY 13:) Wvbcyt149.1 cm (MAY 13 12:) BMI22.68 (MAY 13 12:) Physical Examination GENERAL: General Appearance: alert and oriented, appears stated age. Speech: fluent. HEENT: EOM: intact. Head: normocephalic, atraumatic. NECK: Carotid bruit: none. Jugular venous distension: none. HEART: Rate: tachy. Rhythm: irregular. Murmurs: none. Gallop: no . Heart sounds: normal S1S2. CHEST: Breath sounds: clear bilaterally. Expansion: normal . Rales: none. Wheezes: none. ABDOMEN: Bowel sounds: normal. General: normal. Tenderness: absent . EXTREMITIES: Edema: none. MENTAL STATUS EXAM: Alert and Oriented: To person, place and time. BACK: General: non-tender. AGAP: 12.0 05/13/16 12:57:59 Chloride Lvl: 106 05/13/16 12:57:59 CO2: 25 05/13/16 12:57:59 Potassium Lvl: 4.0 05/13/16 12:57:59 Sodium Lvl: 139 05/13/16 12:57:59 A/G Ratio: 1.1 05/13/16 12:57:59 Albumin Lvl: 3.5 05/13/16 12:57:59 Alk Phos: 141 High 05/13/16 12:57:59 ALT: 33 05/13/16 12:57:59 AST: 26 05/13/16 12:57:59 B/C Ratio: 14 05/13/16 12:57:59 Bili Total: 0.8 05/13/16 12:57:59 BUN: 14 05/13/16 12:57:59 Calcium Lvl: 7.5 Low 05/13/16 12:57:59 Creatinine Lvl: 0.98 05/13/16 12:57:59 eGFR: 61 05/13/16 12:58:01 Globulin: 3.3 05/13/16 12:57:59 Glucose Lvl: 136 High 05/13/16 12:57:59 Total Protein: 6.8 05/13/16 12:57:59 Assessments 1. Paroxysmal atrial fibrillation - I48.0 (Primary) 2. Essential (primary) hypertension - I10 She has recurrent episodes of paroxysmal age fibrillation with rapid ventricular rate and now an episode with aberrant conduction. She will be admitted to the [facility] and started on IV amiodarone drip. Her propafenone will be discontinued given her episode of wide complex tachycardia. We will continue full dose anticoagulation with eliquis. If she does not convert to sinus rhythm in the next 24 hours we would plan for a DC cardioversion.
--- OUTSIDE RECORDS SUMMARY | 2019-03-03 16:33 | XMS REPORT | Summary of Care ---
Author Author [facility] Organization [facility] Address Unknown Phone Unavailable Encounter KAREEM Bull([facility]) [id number] Date(s): 12/04/16 - 01/02/17 [facility] [address] [place] [address]- Discharge Disposition: Home or Self Care Attending Physician: Demetrio Walsh MD Referring Physician: Demetrio Walsh MD Vital Signs Most recent to 1 2 oldest [Reference Range]: Temperature Oral 98.1 DegF 98.1 DegF [96.4-99.1 DegF] (12/25/16 2:16 PM) (12/04/16 12:28 PM) Blood Pressure 133/77 mmHg 154/85 mmHg [90-140/60-90 mmHg] (12/25/16 2:16 PM) *HI* (12/04/16 12:28 PM) Respiratory Rate 18 BRMIN 18 BRMIN [14-20 BRMIN] (12/25/16 2:16 PM) (12/04/16 12:28 PM) Peripheral Pulse 65 bpm 58 bpm Rate [60-100 bpm] (12/25/16 2:16 PM) *LOW* (12/04/16 12:28 PM) Problem List Condition Effective Dates Status [...] Duration: 8 hr, Stop date: 12/25/16 18:59:00 CDT Notes: Non-Formulary Drug. (Same As: SandoSTATIN LAR Depot). Refrigerate. Start Date: 12/25/16 Stop Date: 12/25/16 Status: Completed SandoSTATIN LAR [place] 40 mg, Route: IM, Drug form: PDR/INJ, ONCALL, Start date: 12/04/16 10:30:00 CDT, Duration: 8 hr, Stop date: 12/04/16 18:29:00 CDT Notes: Non-Formulary Drug. (Same As: SandoSTATIN LAR Dep[place]). Refrigerate. Start Date: 12/04/16 Stop Date: 12/04/16 Status: Completed Results No data available for [...]
--- OUTSIDE RECORDS SUMMARY | 2019-03-03 16:33 | XMS REPORT | Summary of Care ---
Author Author [facility] Organization [facility] Address Unknown Phone Unavailable Encounter KAREEM Bull([facility]) [id number] Date(s): 08/22/16 - 09/20/16 [facility] [address] [place] [address]- [phone] Discharge Disposition: Home or Self Care Attending Physician: Demetrio Walsh MD Referring Physician: Demetrio Walsh MD Vital Signs Most recent to 1 oldest [Reference Range]: Height 165.1 cm (08/13/16 3:59 PM) Temperature Oral 98.2 DegF [96.4-99.1 DegF] (08/22/16 12:50 PM) Blood Pressure 148/78 mmHg [90-140/60-90 mmHg] *HI* (08/22/16 12:50 PM) Respiratory Rate 18 BRMIN [14-20 BRMIN] (08/22/16 12:50 PM) Peripheral Pulse 78 bpm Rate [60-100 bpm] (08/22/16 12:50 PM) Weight 61.3 kg (08/13/16 3:59 PM) Body Mass Index 22.49 m2 (08/13/16 3:59 PM) Problem List Condition Effective Dates Status [...] drugs nausea Active Medications SandoSTATIN [place] 20 mg, Route: IM, Drug form: PDR/INJ, ONCALL, Start date: 08/21/16 11:00:00 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 (Same As: SandoSTATIN [place]). Refrigerate. Start Date: 08/21/16 Stop Date: 08/22/16 Status: Completed SandoSTATIN [place] 20 mg, Route: IM, Drug form: PDR/INJ, ONCALL, Start date: 08/20/16 10:00:00 BRANDING MACHINE TENDER, Duration: 8 hr, Stop date: 08/20/16 17:59:00 BRANDING MACHINE TENDER Notes: Non-Formulary Drug. (Same As: SandoSTATIN [place]). Refrigerate. Start Date: 08/20/16 Stop Date: 08/20/16 Status: Deleted SandoSTATIN [place] 20 mg, Route: IM, Drug form: PDR/INJ, ONCALL, Start date: 08/21/16 11:00:00 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 (Same As: SandoSTATIN [place]). Refrigerate. Start Date: 08/21/16 Stop Date: 08/22/16 Status: Completed SandoSTATIN [place] 20 mg, Route: IM, Drug form: PDR/INJ, ONCALL, Start date: 08/20/16 10:00:00 BRANDING MACHINE TENDER, Duration: 8 hr, Stop date: 08/20/16 17:59:00 BRANDING MACHINE TENDER Notes: Non-Formulary Drug. (Same As: SandoSTATIN [place]). Refrigerate. Start Date: 08/20/16 Stop Date: 08/20/16 Status: Deleted SandoSTATIN [place] 20 mg, Route: IM, Drug form: PDR/INJ, ONCALL, Start date: 09/11/16 9:00:00 BRANDING MACHINE TENDER, Duration: 8 hr, Stop date: 09/11/16 16:59:00 BRANDING MACHINE TENDER Notes: Non-Formulary Drug. (Same As: SandoSTATIN [place]). Refrigerate. Start Date: 09/11/16 Stop Date: 09/11/16 Status: Completed SandoSTATIN [place] 20 mg, Route: IM, Drug form: PDR/INJ, ONCALL, Start date: 09/11/16 9:00:00 BRANDING MACHINE TENDER, Duration: 8 hr, Stop date: 09/11/16 16:59:00 BRANDING MACHINE TENDER Notes: Non-Formulary Drug. (Same As: SandoSTATIN [place]). Refrigerate. Start Date: 09/11/16 Stop Date: 09/11/16 Status: Completed Results No data available for [...]
--- OUTSIDE RECORDS SUMMARY | 2019-03-03 16:33 | XMS REPORT | Summary of Care ---
Author Author [facility] Organization [facility] Address Unknown Phone Unavailable Encounter KAREEM Bull([facility]) [id number] Date(s): 04/17/16 - 05/16/16 [facility] [address] [place] [address]- Discharge Disposition: Home or Self Care Attending Physician: Demetrio Walsh MD Referring Physician: Demetrio Walsh MD Vital Signs Most recent to 1 oldest [Reference Range]: Height 165.1 cm (03/31/16 10:33 AM) Temperature Oral 98.3 DegF [96.4-99.1 DegF] (05/08/16 10:45 AM) Blood Pressure 120/83 mmHg [90-140/60-90 mmHg] (05/08/16 10:45 AM) Respiratory Rate 16 BRMIN [14-20 BRMIN] (05/08/16 10:45 AM) Peripheral Pulse 79 bpm Rate [60-100 bpm] (05/08/16 10:45 AM) Weight 61.3 kg (03/31/16 10:33 AM) Body Mass Index 22.49 m2 (03/31/16 10:33 AM) Problem List Condition Effective Dates Status [...] Duration: 24 hr, Stop date: 04/18/16 9:59:00 CDT Notes: Same As: (SandoSTATIN [place])Refrigerated Item Non-Formulary Item Start Date: 04/17/16 Stop Date: 05/16/16 Status: Discontinued SandoSTATIN [place] 10 mg, Route: IM, Drug form: PDR/INJ, ONCALL, Start date: 05/08/16 9:00:00 CDT, Duration: 24 hr, Stop date: 05/09/16 8:59:00 CDT Notes: Same As: (SandoSTATIN [place])Refrigerated Item Non-Formulary Item Start Date: 05/08/16 Stop Date: 05/08/16 Status: Completed SandoSTATIN [place] 30 mg, Route: IM, Drug form: INJ, ONCALL, Start date: 04/17/16 10:00:00 CDT, Dur ation: 24 hr, Stop date: 04/18/16 9:59:00 CDT Notes: Non-Formulary Drug. (Same As: SandoSTATIN [place]). Refrigerate. Start Date: 04/17/16 Stop Date: 05/08/16 Status: Completed SandoSTATIN [place] 30 mg, Route: IM, Drug form: INJ, ONCALL, Start date: 05/08/16 9:00:00 CDT, Dura tion: 24 hr, Stop date: 05/09/16 8:59:00 CDT Notes: Non-Formulary Drug. (Same As: SandoSTATIN [place]). Refrigerate. Start Date: 05/08/16 Stop Date: 05/16/16 Status: Discontinued Results No data available for this section [...]
--- OUTSIDE RECORDS SUMMARY | 2019-03-03 16:33 | XMS REPORT | Summary of Care ---
Author Author [facility] Organization [facility] Address Unknown Phone Unavailable Encounter KAREEM Bull([facility]) [id number] Date(s): 07/10/16 - 08/08/16 [facility] [address] [place] [address]- Discharge Disposition: Home or Self Care Attending Physician: Demetrio Walsh MD Referring Physician: Demetrio Walsh MD Vital Signs Most recent to 1 2 oldest [Reference Range]: Temperature Oral 98 DegF 98.2 DegF [96.4-99.1 DegF] (07/31/16 2:54 PM) (07/10/16 2:30 PM) Blood Pressure 154/87 mmHg 110/78 mmHg [90-140/60-90 mmHg] *HI* (07/10/16 2:30 PM) (07/31/16 2:54 PM) Respiratory Rate 18 BRMIN 18 BRMIN [14-20 BRMIN] (07/31/16 2:54 PM) (07/10/16 2:30 PM) Peripheral Pulse 68 bpm 78 bpm Rate [60-100 bpm] (07/31/16 2:54 PM) (07/10/16 2:30 PM) Problem List Condition Effective Dates [...] Duration: 24 hr, Stop date: 07/11/16 10:29:00 CDT Notes: Same As: (SandoSTATIN [place])Refrigerated Item Non-Formulary Item Start Date: 07/10/16 Stop Date: 07/10/16 Status: Completed SandoSTATIN [place] 10 mg, Route: IM, Drug form: PDR/INJ, ONCALL, Start date: 07/31/16 11:00:00 EMBEDDER, Duration: 24 hr, Stop date: 08/01/16 10:59:00 EMBEDDER Notes: Same As: (SandoSTATIN [place])Refrigerated Item Non-Formulary Item Start Date: 07/31/16 Stop Date: 07/31/16 Status: Deleted SandoSTATIN [place] 30 mg, Route: IM, Drug form: INJ, ONCALL, Start date: 07/10/16 10:30:00 CDT, Dur ation: 24 hr, Stop date: 07/11/16 10:29:00 CDT Notes: Non-Formulary Drug. (Same As: SandoSTATIN [place]). Refrigerate. Start Date: 07/10/16 Stop Date: 07/10/16 Status: Completed SandoSTATIN [place] 20 mg, Route: IM, Drug form: PDR/INJ, ONCALL, Start date: 07/31/16 9:00:00 EMBEDDER, Duration: 8 hr, Stop date: 07/31/16 16:59:00 EMBEDDER Notes: Non-Formulary Drug. (Same As: SandoSTATIN [place]). Refrigerate. Start Date: 07/31/16 Stop Date: 07/31/16 Status: Completed SandoSTATIN [place] 20 mg, Route: IM, Drug form: PDR/INJ, ONCALL, Start date: 07/31/16 9:00:00 EMBEDDER, Duration: 8 hr, Stop date: 07/31/16 16:59:00 EMBEDDER Notes: Non-Formulary Drug. (Same As: SandoSTATIN [place]). Refrigerate. Start Date: 07/31/16 Stop Date: 07/31/16 Status: Completed SandoSTATIN [place] 30 mg, Route: IM, Drug form: INJ, ONCALL, Start date: 07/31/16 11:00:00 EMBEDDER, Dur ation: 24 hr, Stop date: 08/01/16 10:59:00 EMBEDDER Notes: Non-Formulary Drug. (Same As: SandoSTATIN [place]). Refrigerate. Start Date: 07/31/16 Stop Date: 07/31/16 Status: Deleted Results No data available for [...]
--- OUTSIDE RECORDS SUMMARY | 2019-03-03 16:33 | XMS REPORT | Summary of Care ---
Author Author [facility] Organization [facility] Address Unknown Phone Unavailable Encounter KAREEM Bull([facility]) [id number] Date(s): 10/24/16 - 11/22/16 [facility] [address] [place] [address]- Discharge Disposition: Home or Self Care Attending Physician: Demetrio Walsh MD Referring Physician: Demetrio Walsh MD Vital Signs Most recent to 1 2 oldest [Reference Range]: Height 165.1 cm (10/24/16 10:22 AM) Temperature Oral 98 DegF 97.7 DegF [96.4-99.1 DegF] (10/24/16 2:45 PM) (10/02/16 3:27 PM) Blood Pressure 124/72 mmHg 149/81 mmHg [90-140/60-90 mmHg] (10/24/16 2:45 PM) *HI* (10/02/16 3:27 PM) Respiratory Rate 20 BRMIN 18 BRMIN [14-20 BRMIN] (10/24/16 2:45 PM) (10/02/16 3:27 PM) Peripheral Pulse 78 bpm 60 bpm Rate [60-100 bpm] (10/24/16 2:45 PM) (10/02/16 3:27 PM) Weight 61.3 kg (10/24/16 10:22 AM) Body Mass Index 22.49 m2 (10/24/16 10:22 AM) Problem List Condition Effective Dates Status [...] form: PDR/INJ, ONCALL, Start date: 10/02/16 11:00:00 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 (Same As: SandoSTATIN [place]). Refrigerate. Start Date: 10/02/16 Stop Date: 10/02/16 Status: Completed SandoSTATIN [place] 40 mg, Route: IM, Drug form: PDR/INJ, ONCALL, Start date: 10/24/16 14:00:00 INSTALLATION DRAFTER, Duration: 8 hr, Stop date: 10/24/16 21:59:00 INSTALLATION DRAFTER Notes: Non-Formulary Drug. (Same As: SandoSTATIN [place]). Refrigerate. Start Date: 10/24/16 Stop Date: 10/24/16 Status: Completed SandoSTATIN [place] 40 mg, Route: IM, Drug form: PDR/INJ, ONCALL, Start date: 11/13/16 9:30:00 INSTALLATION DRAFTER, Duration: 8 hr, Stop date: 11/13/16 17:29:00 INSTALLATION DRAFTER Notes: Non-Formulary Drug. (Same As: SandoSTATIN [place]). Refrigerate. Start Date: 11/13/16 Stop Date: 11/13/16 Status: Completed SandoSTATIN [place] 20 mg, Route: IM, Drug form: PDR/INJ, ONCALL, Start date: 10/02/16 11:00:00 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 (Same As: SandoSTATIN [place]). Refrigerate. Start Date: 10/02/16 Stop Date: 10/02/16 Status: Completed Results No data available for [...]
--- OUTSIDE RECORDS SUMMARY | 2019-03-03 16:33 | XMS REPORT | Summary of Care ---
Author Author [facility] Organization [facility] Address Unknown Phone Unavailable Encounter KAREEM Bull([facility]) [id number] Date(s): 05/30/16 - 06/28/16 [facility] [address] [place] [address]- Discharge Disposition: Home or Self Care Attending Physician: Demetrio Walsh MD Referring Physician: Demetrio Walsh MD Vital Signs Most recent to 1 2 oldest [Reference Range]: Height 160.02 cm (05/28/16 2:38 PM) Temperature Oral 98.1 DegF 97.7 DegF [96.4-99.1 DegF] (06/19/16 9:12 AM) (05/30/16 9:41 AM) Blood Pressure 123/79 mmHg 127/80 mmHg [90-140/60-90 mmHg] (06/19/16 9:12 AM) (05/30/16 9:41 AM) Respiratory Rate 18 BRMIN 18 BRMIN [14-20 BRMIN] (06/19/16 9:12 AM) (05/30/16 9:41 AM) Peripheral Pulse 57 bpm 51 bpm Rate [60-100 bpm] *LOW* *LOW* (06/19/16 9:12 AM) (05/30/16 9:41 AM) Weight 53 kg (05/28/16 2:38 PM) Body Mass Index 20.7 m2 (05/28/16 2:38 PM) Problem List Condition Effective Dates Status [...] Duration: 24 hr, Stop date: 06/20/16 8:29:00 CDT Notes: Same As: (SandoSTATIN [place])Refrigerated Item Non-Formulary Item Start Date: 06/19/16 Stop Date: 06/19/16 Status: Completed SandoSTATIN [place] 10 mg, Route: IM, Drug form: PDR/INJ, ONCALL, Start date: 05/29/16 11:00:00 CDT, Duration: 24 hr, Stop date: 05/30/16 10:59:00 CDT Notes: Same As: (SandoSTATIN [place])Refrigerated Item Non-Formulary Item Start Date: 05/29/16 Stop Date: 05/30/16 Status: Completed SandoSTATIN [place] 30 mg, Route: IM, Drug form: INJ, ONCALL, Start date: 06/19/16 8:30:00 CDT, Dura tion: 24 hr, Stop date: 06/20/16 8:29:00 CDT Notes: Non-Formulary Drug. (Same As: SandoSTATIN [place]). Refrigerate. Start Date: 06/19/16 Stop Date: 06/19/16 Status: Completed SandoSTATIN [place] 30 mg, Route: IM, Drug form: INJ, ONCALL, Start date: 05/29/16 11:00:00 CDT, Dur ation: 24 hr, Stop date: 05/30/16 10:59:00 CDT Notes: Non-Formulary Drug. (Same As: SandoSTATIN [place]). Refrigerate. Start Date: 05/29/16 Stop Date: 05/30/16 Status: Completed Results No data available for [...]
--- OUTSIDE RECORDS SUMMARY | 2019-03-03 16:33 | XMS REPORT ---
Author Author [facility] Address Unknown Phone Unavailable Care Team Providers Care [employer] Name Role Phone Unavailable Unavailable Problems This patient has no known problems. Allergies, Adverse Reactions, Alerts This patient has no known allergies or adverse reactions. Medications This patient has no known medications. Encounters Start Date/Time End Date/Time Encounter Type Admission Type Attending Clinicians Care Facility Care Department Encounter ID 2019-02-03 13:53:00 2019-02-03 13:53:00 Outpatient [id number] Results Test Description Test Time Test Comments Text Results Atomic Results Result Comments SCR MAMM BILATERAL BRYANNA CAD DIGITAL 2018-11-29 14:35:05 - SCR MAMM BILATERAL BRYANNA CAD DIGITALBILATERAL DIGITAL SCREENING MAMMOGRAM 3D/2D WITH CAD: 11/29/2018CLINICAL: Asymptomatic. Digital breast tomosynthesis was performed in addition to routine CC and MLO views. Current mammographic images were evaluated by either a [employer] M-Vu or a [employer] ImageChecker CAD (computer aided detection system). Comparison is made to exams dated 09/22/2017 mammogram, 2015 mammogram, and 06/27/2015 mammogram - [facility]-. There are scattered fibroglandular tissues in both breasts. There is a benign calcification in the left breast. No suspicious mass, architectural distortion, malignant type calcification, or lymph node abnormality detected. Breast architecture is stable when compared to the prior exams.IMPRESSION: BENIGNThere is no mammographic evidence of malignancy. Resume annual screening mammography in one year. Kraig Monroy M.D. ss/:11/29/2018 14:35:05 copy to: Rahul Dangelo MD, ph: [phone], fax: [phone] Technologist: Taisha ROLDAN, [facility]-FWletter sent: BIRADS 1-2 Normal Mammogram BI-RADS: 2 Benign
--- NOTE | 2019-03-03 17:12 | NUR ---
PT THOUGHT THAT THIS WAS A [facility] FACILITY WHEN I EXPLAINED TO PT THIS WAS [facility] SHE SAID ALL HER RECORDS WERE WITH [facility] AND LEFT. I EXPLAINED TO PT WE COULD STILL SEE HER SHE WAS ADAMANT THAT SHE WANTED A [facility] FACILTY. PT LEFT BEFORE BEING SEEN BY DOCTOR.
== END 2019-03-03 17:16 | disposition left against medical advice (07) ==
LOC: FSED 16:25
DX: M79.602 Pain in left arm (principal)